=== PATIENT | female | born 1985 | race Two or more races ===

== ENCOUNTER → 2020-08-15 14:38 | Outpatient (BNVA) | payer OTHER, SELFPAY | PROVIDERS: PCP Internal Medicine; Referring Provider Internal Medicine; Visit Provider Internal Medicine | DX: I95.1 Orthostatic hypotension (principal); Z79.899 Other long term (current) drug therapy | CPT/HCPCS: 99214 ==

== ENCOUNTER 2020-08-16 12:25 | Outpatient (REF) | payer OTHER, SELFPAY ==
[2020-08-16 14:03] LABS: Anion Gap 10 (12-20); Blood Urea Nitrogen 13 mg/dL (9-16); Calcium 8.8 mg/dL (8.4-10.2); Carbon Dioxide 28 mmol/L (22-29); Chloride 103 mmol/L (96-108); Estimated Glomerular Filt Rate > 60; Glucose Random 84 mg/dL (60-115); Potassium 3.8 mmol/l (3.3-5.1); Sodium 137 mmol/L (135-145)
== END 2020-08-16 12:26 | disposition home or self-care (01) ==
LOC: HO.LAB 12:25
PROVIDERS: PCP Internal Medicine; Visit Provider Internal Medicine
DX: I95.1 Orthostatic hypotension (principal)
CPT/HCPCS: 80048

== ENCOUNTER → 2020-08-21 08:22 | Outpatient (BNVA) | payer OTHER, SELFPAY | PROVIDERS: PCP Internal Medicine; Visit Provider Dietitian, Registered | DX: Z76.89 Persons encountering health services in other specified circumstances (principal) ==

== ENCOUNTER 2020-09-25 00:30 | Emergency (ER) | payer OTHER, SELFPAY ==
[2020-09-25 00:34] VITALS: BP 104/68; PULSE 78; RESP 14; TEMP 36.4; O2SAT 99; BMI 28.3
[2020-09-25 00:41] VITALS: BP 104/68; PULSE 78; RESP 14; TEMP 36.4; O2SAT 99
--- NOTE | 2020-09-25 00:55 | XR_ITS ---
EXAMINATION: XR SHOULDER, RIGHT CLINICAL INFORMATION: Pain COMPARISON: None TECHNIQUE: Three views of the right shoulder. FINDINGS: No fracture or dislocation. The right humeral head articulates appropriately with the glenoid. The joint space is maintained. The acromioclavicular joint is intact. The visualized lung is clear. The visualized ribs are intact. XR/XR shoulder RT min 2V IMPRESSION: Normal right shoulder.
--- NOTE | 2020-09-25 01:02 | PC.NURSE ---
pt taken to rad. pt has her right arm in a home made sling. pt states she is unable to move her right arm due to pain that is also in her right side of her neck.
[2020-09-25] MEDS: Ketorolac Tromethamine 60 MG/2 ML VIAL IM (01:09)
[2020-09-25 02:00] VITALS: BP 97/52; PULSE 83; RESP 16; O2SAT 97
--- NOTE | 2020-09-25 02:25 | ED.EXTPRO ---
HPI - Extremity Problem General Chief complaint: Extremity Injury, Upper Stated complaint: Shoulder pain Time Seen by Provider: 09/25/20 00:55 Source: patient Mode of arrival: ambulatory History of Present Illness HPI Narrative: 35-year-old female with right shoulder pain x1 day. Patient denies falls or heavy lifting. Patient states several weeks ago her left hand started having pain was prescribed steroids and eventually got better. Patient states right shoulder limited movement secondary to pain. Does not have any numbness or tingling to the right arm. Denies neck pain MD Complaint: extremity pain Onset (ago): day(s) Pain Consistency: constant Severity scale (1-10): 5 Related Data Home Medications Medication Instructions Recorded Confirmed midodrine 10 mg tablet 10 mg PO TID 08/15/20 08/15/20 sodium chloride 1 gram tablet 1,000 mg PO DAILY 08/15/20 08/15/20 baclofen 10 mg tablet 10 mg PO BID PRN 09/13/20 benzonatate 100 mg capsule 100 mg PO TID 09/13/20 fludrocortisone 0.1 mg tablet 0.05 mg PO DAILY 09/13/20 Previous Rx's Medication Instructions Recorded fludrocortisone 0.1 mg tablet 0.2 mg PO DAILY #180 tab 08/15/20 docusate sodium 100 mg capsule 100 mg PO DAILY PRN 20 Days #20 cap 09/13/20 witch deven 50 % topical pads 1 pad TOPICAL BID 5 Days #10 ea 09/13/20 cyclobenzaprine 10 mg PO BEDTIME PRN #20 tab 09/25/20 naproxen [EC-Naproxen] 500 mg PO BID PRN #30 tab 09/25/20 tramadol 50 mg PO BID PRN #14 tab 09/25/20 Allergies Allergy/AdvReac Type Severity Reaction Status Date / Time Iodinated Contrast Media Allergy Unknown DIFFICULTY Verified 09/25/20 00:34 [IV CONTRAST] BREATHING Review of Systems Review of Systems: Constitutional : No Weight loss, No Fever, No Chills, No Night Sweats, No Fatigue, No Malaise ENT/Mouth : No Hearing loss, No Ear Pain, No Nasal Congestion, No Sinus Pain, No Hoarseness, No sore throat, No Rhinorrhea, No Swallowing Difficulty Eyes: No Eye Pain, No Swelling, No Redness, No Foreign Body, No Discharge, No Vision Changes Cardiovascular : No Chest Pain, No SOB, No Dyspnea on Exertion, No Orthopnea, No Edema, No Palpitations Respiratory : No Cough, No Sputum, No Wheezing, No Smoke Exposure, No Dyspnea Gastrointestinal : No Nausea, No Vomiting, No Diarrhea, No Constipation, No abdominal Pain, No Hematochezia, No Melena Genitourinary : no irregular bleeding, No Dysuria, No Urinary Frequency, No Hematuria, No Urinary Incontinence, No Urgency, No Flank Pain, No Urinary Flow Changes, No Hesitancy Musculoskeletal : Right shoulder pain No Myalgias, No Joint Swelling Skin : No Skin Lesions, No rash Neuro : No Weakness, No Numbness, No Paresthesias, No Loss of Consciousness, No Dizziness, No Headache Psych : No Anxiety/Panic, No Depression, No SI/HI/AH/VH, No Social Issues, Heme/Lymph: No Bruising, No Bleeding,No Lymphadenopathy Endocrine : No Polyuria, No Polydipsia, No Temperature Intolerance PMFSH Past Medical History Medical History Acute hemorrhoid Dizziness Orthostatic hypotension Pre-syncope Surgical History History of section Family History Family History Mother Hypertension Diabetes Father No problems noted. Social History Social History Alcohol intake: never Smoking Status: Former smoker Use of substances other than those prescribed or required for medical reasons: No Advance Directives: No Physical Exam Vital Signs: Vital Signs: Last Vital Signs Temp 97.6 F 09/25/20 00:41 Pulse 83 09/25/20 02:00 Resp 16 09/25/20 02:00 BP 97/52 L 09/25/20 02:00 Pulse Ox 97 09/25/20 02:00 Body Mass Index 28.3 Vital signs reviewed Appearance: Alert. Oriented X3. No acute distress. Eyes: Pupils equal, round and reactive to light. ENT: Pharynx normal. Neck: Normal inspection. Neck supple. No lymph nodes noted. No crepitus CVS: Normal heart rate and rhythm. Pulses normal. Normal S1 and S2 Respiratory: No respiratory distress. Breath sounds normal. No Wheezing. No rales Abdomen: Soft and nontender. No rigidity. No distention. good BS x4 Skin: Skin warm and dry. Normal skin color. Normal skin turgor. Extremities: No lower extremity edema. Neurovascular intact to all extremities. No Lacerations. No Rash. Right shoulder tenderness to palpation. Limited range of motion secondary to pain. Increased tonicity to right trapezius Neuro: Oriented X 3. No motor deficit. No sensory deficit. Moving all extermities. No slurred speech. MDM - Extremity (Nontraumatic) MDM Narrative Medical decision making narrative: 35-year-old female with right shoulder pain. Negative x-ray. Increased tonicity will prescribe and tight inflammatories and muscle relaxant medications. I doubt this patient has acute coronary syndrome or cervical neck fracture. Radiology results reviewed by me Discharge Plan Discharge Clinical Impression: Acute shoulder pain Qualifiers: Laterality: right Qualified Code(s): M25.511 - Pain in right shoulder Patient Disposition: Home, Self-Care Instructions: Shoulder Pain (ED) Additional Instructions: Thank you for visiting the emergency department today. If your symptoms worsen or do not resolve completely please return to the emergency department immediately or call 911. if he have any questions please call your primary care physician Prescriptions: New naproxen [EC-Naproxen] 500 mg tablet,delayed release (DR/EC) 500 mg PO BID PRN (Reason: pain) Qty: 30 RF: 0 cyclobenzaprine 10 mg tablet 10 mg PO BEDTIME PRN (Reason: pain) Qty: 20 RF: 0 tramadol 50 mg tablet 50 mg PO BID PRN (Reason: pain) Qty: 14 RF: 0 No Action Preparation H (Lucie Camargo) 50 % pads, medicated 1 pad topical BID 5 Days Qty: 10 RF: 1 docusate sodium [Colace] 100 mg capsule 100 mg PO DAILY PRN (Reason: constipation) 20 Days Qty: 20 RF: 0 sodium chloride 1 gram tablet 1,000 mg PO DAILY RF: 0 midodrine 10 mg tablet 10 mg PO TID RF: 0 fludrocortisone 0.1 mg tablet 0.2 mg PO DAILY Qty: 180 RF: 1 Referrals: Lucia Quintanilla MD [Primary Care Provider] - 2 days
[2020-09-25] MEDS: Cyclobenzaprine HCl 10 MG TABLET PO (02:30)
== END 2020-09-25 02:57 | disposition home or self-care (01) ==
PROVIDERS: Emergency Provider Emergency Medicine; PCP Internal Medicine
DX: M25.511 Pain in right shoulder (principal); I10 Essential (primary) hypertension; Z87.891 Personal history of nicotine dependence; Z79.899 Other long term (current) drug therapy
CPT/HCPCS: 73030; 96372; 99284; J1885

== ENCOUNTER → 2020-10-17 08:20 | Outpatient (BNVA) | payer OTHER, SELFPAY | PROVIDERS: PCP Internal Medicine; Referring Provider Internal Medicine; Visit Provider Dietitian, Registered | DX: Z76.89 Persons encountering health services in other specified circumstances (principal) ==

== ENCOUNTER → 2021-01-02 09:59 | Outpatient (BNVA) | payer SELFPAY | PROVIDERS: PCP Internal Medicine; Visit Provider Nurse Practitioner Family ==

== ENCOUNTER 2021-01-25 09:53 | Outpatient (REF) | payer OTHER, SELFPAY ==
[2021-01-25 10:54] LABS: MANUAL DIFF FLAG NO
[2021-01-25 10:59] LABS: Basophils Percent Auto 0.7 % (0-2); Eosinophils Absolute Auto 0.1 X10*3/uL (0.0-0.4); Eosinophils Percent Auto 3.2 % (0-4); Hematocrit 28.4 % (37-47); Hemoglobin 8.3 g/dl (12.0-16.0); Imm Gran Abs Auto 0.02 X10*3/uL (0.00-0.03); Imm Gran Pct Auto 0.5 % (0.0-0.4); Lymphocytes Absolute Auto 1.3 X10*3/uL (1.2-4.9); Lymphocytes Percent Auto 32.4 % (20-40); Mean Corpuscular HGB Conc 29.2 g/dl (31.0-35.0); Mean Corpuscular Hemoglobin 21.1 pg (27.0-33.0); Mean Corpuscular Volume 72.1 fL (80-98); Mean Platelet Volume 9.8 fL (9.4-12.3); Monocytes Absolute Auto 0.4 X10*3/uL (0.1-1.2); Monocytes Percent Auto 8.5 % (2-11); Neutrophils Absolute Auto 2.3 X10*3/uL (2.0-8.3); Neutrophils Percent Auto 54.7 % (45-73); Platelet Count 285 X10*3/uL (160-400); Red Blood Count 3.94 X10*6/uL (4.20-5.50); Red Cell Distribution Width 15.2 % (11.0-16.0); White Blood Count 4.1 X10*3/uL (4.8-10.8)
[2021-01-25 11:22] LABS: Alanine Aminotransferase 11 U/L (0-31); Albumin Level 3.9 g/dL (3.5-5.0); Alkaline Phosphatase 74 U/L (39-117); Anion Gap 11 (12-20); Aspartate Amino Transferase 13 U/L (5-31); Bilirubin Total 0.6 mg/dL (0.0-1.0); Blood Urea Nitrogen 10 mg/dL (9-16); Calcium 8.3 mg/dL (8.4-10.2); Carbon Dioxide 25 mmol/L (22-29); Chloride 109 mmol/L (96-108); Estimated Glomerular Filt Rate > 60; Glucose Fasting 85 mg/dL (60-99); Iron 24 mcg/dL (30-160); Percent Iron Saturation 6 % (15-50); Potassium 3.9 mmol/L (3.3-5.1); Sodium 141 mmol/L (135-145); Total Iron Binding Capacity 420 mcg/dL (228-428); Total Protein 6.6 g/dL (6.5-8.0); Unsaturated Iron Binding 396 ug/dL
[2021-01-25 12:01] LABS: Folate > 20.0 ng/mL (> or = 4.0); Vitamin B12 251 pg/mL (200-900)
[2021-01-29 14:01] LABS: Vitamin D 25-OH, D2 8 ng/mL; Vitamin D 25-OH, D3 11 ng/mL; Vitamin D 25-OH, Total 19 ng/mL (30-100)
== END 2021-01-25 09:54 | disposition home or self-care (01) ==
LOC: HO.LAB 09:53
PROVIDERS: PCP Internal Medicine; Visit Provider Internal Medicine
DX: D50.9 Iron deficiency anemia, unspecified (principal); D64.9 Anemia, unspecified; R42 Dizziness and giddiness; E55.9 Vitamin D deficiency, unspecified
CPT/HCPCS: 36415; 80053; 82306; 82607; 82746; 83540; 85025

== ENCOUNTER 2021-02-25 10:39 | Outpatient (RCR) | payer OTHER, SELFPAY ==
--- NOTE | 2021-03-29 10:36 | MHC.PT.DC ---
[facility] [place] Office [place] Office [place] Office [address] Gregory Son [address] [phone] F: [phone] F: [phone] F: [phone] F: [phone] Physical Therapy Discharge Report Diagnosis: dizziness and giddiness and neck pain Date of Surgery: Date of Evaluation: 02/25/21 Date of Discharge: 03/29/21 Treatments to Date: 1 Cancellations to Date: 0 No Shows to Date: 0 Discharge Status: Recommend MD Follow-up Visit Non-compliance Discharge Summary: Pt did not f/u with further visits and she was to f/u with PCP. D/c at this time. Electronically signed by: Aylin Saucedo PT Please sign and return to therapist. Thank you for your referral.
--- NOTE | 2021-03-29 10:36 | MHC.PT.EP ---
[facility] [place] Office [place] Office [place] Office [address] Gregory Son [address] [phone] F: [phone] F: [phone] F: [phone] F: [phone] Physical Therapy Plan of Care Date of Evaluation: Date of Surgery: Diagnosis: dizziness and giddiness and neck pain Assessment: 36 y/o RHD referred to PT wtih dizziness and giddiness and neck pain. Of note, pt with PMH significinat for myasthenia gravis and often has double vision due to this dx. She has had neck pain for 3 years and dizziness on/off for one year that is worse with positional changes, describes as spinning and offbalance that lasts for a few minutes. Reports B neck pain for 3 years of insidious onset. Reports neck pain located entire posterior cervical region and radiates into B UT. Examination shows decreased cervical and shoulder AROM, decreased UE strength (more significant strength deficit on R), DGI with impairments noted with use of hand on rail with stairs, turn and stop and decreased omar with vertical head turns and BPPV not assessed due to seated VBI test on Right resulting in diplopia and nausea. PT held at this time with pt to f/u with Dr. Odell Rico regarding VBI sx. Once cleared, she would benefit from PT for cervical pain/balance training/ and assessment of BPPV 2x/week for 5 weeks to optimize functional mobiltiy. Frequency and Duration: The patient will be seen 2x/week for 5 weeks Short Term Goals: 3 weeks 1. I with HEP 2. Improve cervical AROM by 10 degrees Mcc Goals: 5 weeks 1. DGI 2. I witih HEP and self management of sx 3. Pt will be able to perform grooming I with pain < 3/10 Treatment Plan: Modalities to reduce pain, spasms and effusion. Manual therapy to restore motion and function. Therapeutic exercise to improve strength and flexibility. Neuromuscular re-education for posture and balance. Therapeutic activities to return to functional activities of daily living. Electronically signed by: Aylin Saucedo PT Please sign and return to therapist. Thank you for your referral.
== END 2021-03-29 10:39 | disposition home or self-care (01) ==
LOC: HO.PTCHIC 10:39
PROVIDERS: PCP Internal Medicine; Visit Provider Internal Medicine
DX: R42 Dizziness and giddiness (principal)
CPT/HCPCS: 97162

== ENCOUNTER 2021-04-22 10:28 | Emergency (ER) | payer OTHER, SELFPAY ==
--- NOTE | ~2021-04-22 | CT_ITS ---
EXAMINATION: CT ABDOMEN AND PELVIS WITHOUT CONTRAST CLINICAL INFORMATION: Left lower quadrant pain COMPARISON: None TECHNIQUE: Multidetector volumetric imaging was performed from the superior aspect of the liver through the pubic symphysis. Sagittal and coronal reformatted images were obtained on the technologist's workstation. This CT examination was performed using dose optimization techniques as appropriate, variously including the following: *Automated exposure control *Adjustment of mA and/or kV according to patient size (this includes techniques or standardized protocols for targeted exams where dose is matched to indication/reason for exam; i.e. extremities or head) *Use of iterative reconstruction technique DLP: 638 mGy-cm FINDINGS: LUNG BASES: The visualized lung bases are unremarkable. LIVER, GALLBLADDER, AND BILIARY TREE: The liver is normal in size, shape, and attenuation. No focal hepatic lesion or biliary ductal dilatation is present. There are small gallstones in the gallbladder. Gallbladder is otherwise unremarkable. PANCREAS: Unremarkable. SPLEEN: Unremarkable. ADRENAL GLANDS: Unremarkable. KIDNEYS AND URETERS: The kidneys are normal in size, shape, and attenuation. No hydronephrosis, hydroureter, or calculi seen. No perinephric stranding. BLADDER: Unremarkable. GASTROINTESTINAL TRACT: The small and large bowel are unremarkable. The appendix is unremarkable. There are postoperative changes from gastric sleeve procedure. ABDOMINAL WALL: There is a small umbilical hernia containing fat. LYMPH NODES: Normal. VASCULAR: Unremarkable. PELVIC VISCERA: Unremarkable. OSSEOUS STRUCTURES: Unremarkable. CT/CT abdomen pelvis wo con IMPRESSION: Gallstones. Postsurgical change from gastric sleeve procedure. No evidence of diverticulosis or diverticulitis.
[2021-04-22 11:08] VITALS: BP 96/70; PULSE 73; RESP 16; TEMP 36.7; O2SAT 98; BMI 27.1
[2021-04-22 11:46] VITALS: BP 97/53; PULSE 63; RESP 16; TEMP 36.8; O2SAT 98
--- NOTE | 2021-04-22 11:56 | ED_ITS ---
HPI - Abdominal Pain General Chief Complaint: Abdominal Pain Stated Complaint: abd pain Time Seen by Provider: 04/22/21 11:38 Source: patient and family Mode of arrival: ambulatory Limitations: no limitations History of Present Illness MD elicited complaint: abdominal pain Onset (ago): day(s) (3) Pain Consistency: constant Location: LLQ and L flank Severity: moderate Quality: cramping and stabbing Radiation: none Migration to: no migration Exacerbating factors: vomiting and movement Relieving factors: nothing Associated symptoms: nausea and vomiting Related Data Home Medications Medication Instructions Recorded Confirmed sodium chloride 1 gram tablet 1,000 mg PO DAILY 08/15/20 02/19/21 baclofen 10 mg tablet 10 mg PO BID PRN 09/13/20 02/19/21 cetirizine 10 mg tablet 10 mg PO DAILY 10/24/20 02/19/21 diclofenac sodium 1 % topical gel 2 g TOPICAL BID-TID 10/24/20 02/19/21 fluticasone 113 mcg-salmeterol 14 1 inh INHALATION BID 10/24/20 02/19/21 mcg/actuation breath activated powdr hydroxyzine HCl 25 mg tablet 25 mg PO BID PRN 10/24/20 02/19/21 ketotifen fumarate 0.025 % (0.035 1 drp OPHTHALMIC (EYE) Q8H ml 10/24/20 02/19/21 %) eye drops lidocaine 5 % topical patch 1 patch TOPICAL DAILY 10/24/20 02/19/21 polyethylene glycol 3350 17 g PO 10/24/20 02/19/21 gram/dose oral powder pyridostigmine bromide 60 mg tablet 120 mg PO QID 10/24/20 02/19/21 sertraline 100 mg tablet 100 mg PO DAILY 10/24/20 02/19/21 zolpidem 5 mg tablet 5 mg PO BEDTIME PRN 10/24/20 02/19/21 Previous Rx's Medication Instructions Recorded docusate sodium 100 mg capsule 100 mg PO DAILY PRN 20 Days #20 cap 09/13/20 witch deven 50 % topical pads 1 pad TOPICAL BID 5 Days #10 ea 10/24/20 cholecalciferol (vitamin D3) 50 50 mcg PO DAILY #30 cap 12/31/20 mcg (2,000 unit) capsule fludrocortisone 0.1 mg tablet 0.2 mg PO DAILY #180 tab 01/02/21 midodrine 10 mg tablet 10 mg PO TID #90 tab 01/02/21 meclizine 25 mg tablet 25 mg PO TID PRN 30 Days #90 tab 01/08/21 ergocalciferol (vitamin D2) 1,250 1,250 mcg PO QWEEK 30 Days #5 cap 02/19/21 mcg (50,000 unit) capsule ferrous sulfate 325 mg (65 mg 325 mg PO BID 30 Days #60 tab 02/19/21 iron) tablet tramadol 50 mg tablet 50 mg PO BID PRN 30 Days #60 tab 02/19/21 cefuroxime axetil 500 mg PO BID 7 Days #14 tab 04/22/21 ondansetron 4 mg PO Q8H PRN #20 tab 04/22/21 Allergies Allergy/AdvReac Type Severity Reaction Status Date / Time Iodinated Contrast Media Allergy Unknown DIFFICULTY Verified 02/19/21 09:12 [IV CONTRAST] BREATHING Review of Systems Review of Systems Constitutional : No Weight loss, No Fever, No Chills ENT/Mouth : No sore throat, No Rhinorrhea Eyes: No Swelling, No Redness Cardiovascular : No Chest Pain, No SOB, NoEdema Respiratory : No Cough, No Sputum, No Wheezing Gastrointestinal : Positive Nausea, Positive Vomiting, no Diarrhea, positive abdominal Pain, No Hematochezia, No Melena Genitourinary : No Dysuria, No Urinary Frequency, No Hematuria, No Urgency Musculoskeletal : No joint pain, No Myalgias, No Joint Swelling Skin : No Skin Lesions, No rash Neuro : No Weakness, No Numbness, No Dizziness, No Headache Psych : No Anxiety/Panic, No Depression Heme/Lymph: No Bruising, No Lymphadenopathy Endocrine : No Polyuria, No Polydipsia All other systems reviewed and are negative. Physical Exam Vital Signs: Vital Signs: Last Vital Signs Temp 98.3 F 04/22/21 11:46 Pulse 63 04/22/21 11:46 Resp 16 04/22/21 11:46 BP 97/53 L 04/22/21 11:46 Pulse Ox 98 04/22/21 11:46 Body Mass Index 27.1 Appearance: Alert. Oriented X3. No acute distress. Eyes: Pupils equal, round and reactive to light. ENT: Pharynx normal. Neck: Normal inspection. Neck supple. CVS: Normal heart rate and rhythm. Pulses normal. Respiratory: No respiratory distress. Breath sounds normal. Abdomen: Soft and moderate LLQ pain no rebound or guarding Skin: Skin warm and dry. Normal skin color. Normal skin turgor. Extremities: No lower extremity edema. No calf ttp Neuro: Oriented X 3. No motor deficit. No sensory deficit. Course Course Course Narrative: baseline fluctuations in H/H not far from baseline, doubt GIB, patient feels better, UA has some WBCs and her pain is over suprapubic area c ould be cystitis, will start on ceftin, overall not toxic, stable for DC at this time MDM - Abdominal Pain MDM Narrative Medical decision making narrative: 36 yo female with hx of MG on pyridostigmine comes in with 3 days of LLQ and L flank pain with n/v no prior bouts of diverticulitis no prior stones, at this time will need labs, IVF, IV medications - reviewed list no issue with MG should occur, CT scan of bowel/kidneys dispo per results and findings. Differential Diagnosis Differential diagnosis: Likely abdominal pain, calculus of kidney, constipation, diverticulitis and ovarian cyst; Unlikely acute appendicitis Lab Data Result diagrams: 04/22/21 11:55 04/22/21 11:55 Labs: Lab Results 04/22/21 04/22/21 04/22/21 Range/Units 11:55 11:55 11:55 WBC 5.3 (4.8-10.8) X10*3/uL RBC 4.49 (4.20-5.50) X10*6/uL Hgb 8.9 L (12.0-16.0) g/dl Hct 29.6 L (37-47) % MCV 65.9 L (80-98) fL MCH 19.8 L (27.0-33.0) pg MCHC 30.1 L (31.0-35.0) g/dl RDW 20.6 H (11.0-16.0) % Plt Count 205 D (160-400) X10*3/uL MPV 8.5 L (9.4-12.3) fL Immature Gran % (Auto) 0.2 (0.0-0.4) % Neut % (Auto) 54.0 (45-73) % Lymph % (Auto) 32.1 (20-40) % Bartholomew % (Auto) 10.6 (2-11) % Eos % (Auto) 2.5 (0-4) % Baso % (Auto) 0.6 (0-2) % Lymph # (Auto) 1.7 (1.2-4.9) X10*3/uL Bartholomew # (Auto) 0.6 (0.1-1.2) X10*3/uL Eos # (Auto) 0.1 (0.0-0.4) X10*3/uL Baso # (Auto) 0.0 (0.0-0.2) X10*3/uL Abs Immat Gran (auto) 0.01 (0.00-0.03) X10*3/uL Absolute Neuts (auto) 2.9 (2.0-8.3) X10*3/uL Absolute Nucleated RBC 0.000 (0.0-0.012) X10*3/uL Nucleated RBC % (auto) 0.0 (0.0-0.2) /100WBC Sodium 138 (135-145) mmol/L Potassium 4.3 (3.3-5.1) mmol/L Chloride 108 (96-108) mmol/L Carbon Dioxide 24 (22-29) mmol/L Anion Gap 10 L (12-20) BUN 13 (9-16) mg/dL Creatinine 0.66 (0.5-1.4) mg/dL Estim Creat Clear Calc 109.1 Estimated GFR > 60 Random Glucose 83 (60-115) mg/dL Calcium 9.1 D (8.4-10.2) mg/dL Magnesium 1.8 (1.6-2.6) mg/dL Total Bilirubin 0.6 (0.0-1.0) mg/dL Direct Bilirubin 0.2 (0.0-0.5) mg/dL AST 13 (5-31) U/L ALT 8 (0-31) U/L Alkaline Phosphatase 69 (39-117) U/L Total Protein 6.6 (6.5-8.0) g/dL Albumin 3.9 (3.5-5.0) g/dL Lipase 41 (8-78) U/L Urine Color Urine Appearance Urine pH (5.0-8.0) Ur Specific Huntington (1.005-1.025) Urine Protein (NEG-TRACE) MG/DL Urine Glucose (UA) (NEG) MG/DL Urine Ketones (NEG) MG/DL Urine Blood (NEG) Urine Nitrite (NEG) Ur Leukocyte Esterase (NEG) Urine RBC (0) /HPF Urine WBC (0-4) /HPF Ur Squamous Epith Cells /LPF Urine Bacteria /LPF Urine Test (NEGATIVE) 04/22/21 04/22/21 Range/Units 11:58 11:58 WBC (4.8-10.8) X10*3/uL RBC (4.20-5.50) X10*6/uL Hgb (12.0-16.0) g/dl Hct (37-47) % MCV (80-98) fL MCH (27.0-33.0) pg MCHC (31.0-35.0) g/dl RDW (11.0-16.0) % Plt Count (160-400) X10*3/uL MPV (9.4-12.3) fL Immature Gran % (Auto) (0.0-0.4) % Neut % (Auto) (45-73) % Lymph % (Auto) (20-40) % Bartholomew % (Auto) (2-11) % Eos % (Auto) (0-4) % Baso % (Auto) (0-2) % Lymph # (Auto) (1.2-4.9) X10*3/uL Bartholomew # (Auto) (0.1-1.2) X10*3/uL Eos # (Auto) (0.0-0.4) X10*3/uL Baso # (Auto) (0.0-0.2) X10*3/uL Abs Immat Gran (auto) (0.00-0.03) X10*3/uL Absolute Neuts (auto) (2.0-8.3) X10*3/uL Absolute Nucleated RBC (0.0-0.012) X10*3/uL Nucleated RBC % (auto) (0.0-0.2) /100WBC Sodium (135-145) mmol/L Potassium (3.3-5.1) mmol/L Chloride (96-108) mmol/L Carbon Dioxide (22-29) mmol/L Anion Gap (12-20) BUN (9-16) mg/dL Creatinine (0.5-1.4) mg/dL Estim Creat Clear Calc Estimated GFR Random Glucose (60-115) mg/dL Calcium (8.4-10.2) mg/dL Magnesium (1.6-2.6) mg/dL Total Bilirubin (0.0-1.0) mg/dL Direct Bilirubin (0.0-0.5) mg/dL AST (5-31) U/L ALT (0-31) U/L Alkaline Phosphatase (39-117) U/L Total Protein (6.5-8.0) g/dL Albumin (3.5-5.0) g/dL Lipase (8-78) U/L Urine Color STRAW Urine Appearance HAZY Urine pH 6.5 (5.0-8.0) Ur Specific Huntington 1.015 (1.005-1.025) Urine Protein NEG (NEG-TRACE) MG/DL Urine Glucose (UA) NEG (NEG) MG/DL Urine Ketones NEG (NEG) MG/DL Urine Blood NEG (NEG) Urine Nitrite NEG (NEG) Ur Leukocyte Esterase 1+ H (NEG) Urine RBC 0 (0) /HPF Urine WBC 1-4 (0-4) /HPF Ur Squamous Epith Cells 2+ /LPF Urine Bacteria TRACE /LPF Urine Test NEGATIVE (NEGATIVE) Discharge Plan Discharge Clinical Impression: Anemia, chronic disease, Cystitis Abdominal pain Qualifiers: Abdominal location: left lower quadrant Qualified Code(s): R10.32 - Left lower quadrant pain Patient Disposition: Home, Self-Care Instructions: Urinary Tract Infection in Women (ED), Abdominal Pain (ED), Anemia (ED) Additional Instructions: return to ED for any worsening symptoms or concerns Prescriptions: New cefuroxime axetil 500 mg tablet 500 mg PO BID 7 Days Qty: 14 RF: 0 ondansetron 4 mg tablet,disintegrating 4 mg PO Q8H PRN (Reason: nausea and vomiting) Qty: 20 RF: 0 No Action cholecalciferol (vitamin D3) 50 mcg (2,000 unit) capsule 50 mcg PO DAILY Qty: 30 RF: 11 zolpidem 5 mg tablet 5 mg PO BEDTIME PRNRF: 0 sertraline 100 mg tablet 100 mg PO DAILY RF: 0 ketotifen fumarate 0.025 % (0.035 %) drops 1 drp ophthalmic (eye) Q8H RF: 0 cetirizine 10 mg tablet 10 mg PO DAILY RF: 0 polyethylene glycol 3350 17 gram/dose powder PO RF: 0 diclofenac sodium 1 % gel 2 g topical BID-TID RF: 0 lidocaine 5 % adhesive patch,medicated 1 patch topical DAILY RF: 0 fluticasone propion-salmeterol 113-14 mcg/actuation aerosol powdr breath activated 1 inh inhalation BID RF: 0 hydroxyzine HCl 25 mg tablet 25 mg PO BID PRN (Reason: anxiety) RF: 0 pyridostigmine bromide 60 mg tablet 120 mg PO QID RF: 0 Preparation H (Witch Deven) 50 % pads, medicated 1 pad topical BID 5 Days Qty: 10 RF: 1 tramadol 50 mg tablet 50 mg PO BID PRN (Reason: pain) 30 Days Qty: 60 RF: 0 ferrous sulfate 325 mg (65 mg iron) tablet 325 mg PO BID 30 Days Qty: 60 RF: 3 ergocalciferol (vitamin D2) 1,250 mcg (50,000 unit) capsule 1,250 mcg PO QWEEK 30 Days Qty: 5 RF: 3 baclofen 10 mg tablet 10 mg PO BID PRNRF: 0 docusate sodium [Colace] 100 mg capsule 100 mg PO DAILY PRN (Reason: constipation) 20 Days Qty: 20 RF: 0 meclizine 25 mg tablet 25 mg PO TID PRN (Reason: dizziness) 30 Days Qty: 90 RF: 2 sodium chloride 1 gram tablet 1,000 mg PO DAILY RF: 0 fludrocortisone 0.1 mg tablet 0.2 mg PO DAILY Qty: 180 RF: 1 midodrine 10 mg tablet 10 mg PO TID Qty: 90 RF: 1 Referrals: Lucia Quintanilla MD [Primary Care Provider] - 2 days (if not better) [facility] Past Medical History Attestation statement: The following information was validated with the patient. Medical History Acute hemorrhoid Asthma Dizziness Iron deficiency anemia Orthostatic hypotension Polyarthralgia Pre-syncope Surgical History History of section History of gastric surgery History of thyroidectomy Family History Family History Mother Hypertension Diabetes Father No problems noted. Paternal Uncle Breast cancer Social History Social History (Updated 04/22/21 @ 11:58 by Luz Maria Burton DO) Alcohol intake: never Patient Tobacco Use Status: Never used Tobacco Use of substances other than those prescribed or required for medical reasons: No Advance Directives: No Advance Directives Information Provided: No Patient : No
[2021-04-22 12:03] LABS: MANUAL DIFF FLAG NO
[2021-04-22 12:05] LABS: Basophils Percent Auto 0.6 % (0-2); Eosinophils Absolute Auto 0.1 X10*3/uL (0.0-0.4); Eosinophils Percent Auto 2.5 % (0-4); Hematocrit 29.6 % (37-47); Hemoglobin 8.9 g/dl (12.0-16.0); Imm Gran Abs Auto 0.01 X10*3/uL (0.00-0.03); Imm Gran Pct Auto 0.2 % (0.0-0.4); Lymphocytes Absolute Auto 1.7 X10*3/uL (1.2-4.9); Lymphocytes Percent Auto 32.1 % (20-40); Mean Corpuscular HGB Conc 30.1 g/dl (31.0-35.0); Mean Corpuscular Hemoglobin 19.8 pg (27.0-33.0); Mean Corpuscular Volume 65.9 fL (80-98); Mean Platelet Volume 8.5 fL (9.4-12.3); Monocytes Absolute Auto 0.6 X10*3/uL (0.1-1.2); Monocytes Percent Auto 10.6 % (2-11); Neutrophils Absolute Auto 2.9 X10*3/uL (2.0-8.3); Platelet Count 205 X10*3/uL (160-400); Red Blood Count 4.49 X10*6/uL (4.20-5.50); Red Cell Distribution Width 20.6 % (11.0-16.0); White Blood Count 5.3 X10*3/uL (4.8-10.8)
[2021-04-22 12:09] LABS: Glucose Urine UA NEG (NEG); Leukocyte Esterase Urine 1+ (NEG); Nitrite Urine NEG (NEG); PH 6.5 (5.0-8.0); Specific Gravity - Urine 1.015 (1.005-1.025); UACC Culture Trigger YES; Urine Blood NEG (NEG); Urine Ketones NEG (NEG); Urine Protein NEG (NEG-TRACE)
[2021-04-22 12:12] LABS: Appearance Urine HAZY; Color Urine STRAW
[2021-04-22 12:13] LABS: UPreg QC Valid YES; Urine Pregnancy NEGATIVE (NEGATIVE)
[2021-04-22] MEDS: 0.9 % Sodium Chloride 1,000 ML 999 ML IVCONT (12:16)
[2021-04-22] MEDS: Ketorolac Tromethamine 30 MG/ML VIAL IVPUSH (12:16)
[2021-04-22] MEDS: ondansetron HCL 4 MG/2 ML VIAL IVPUSH (12:16)
[2021-04-22 12:19] LABS: Bacteria Urine TRACE /LPF; RBC Urine 0 /HPF (0); Squamous Epithelial Cell Urine 2+ /LPF
[2021-04-22 12:33] LABS: Anion Gap 10 (12-20); Blood Urea Nitrogen 13 mg/dL (9-16); Calcium 9.1 mg/dL (8.4-10.2); Carbon Dioxide 24 mmol/L (22-29); Chloride 108 mmol/L (96-108); Creatinine Clr Calc Pharmacy 109.1; Estimated Glomerular Filt Rate > 60; Glucose Random 83 mg/dL (60-115); Potassium 4.3 mmol/L (3.3-5.1); Sodium 138 mmol/L (135-145)
[2021-04-22 12:34] LABS: Alanine Aminotransferase 8 U/L (0-31); Albumin Level 3.9 g/dL (3.5-5.0); Alkaline Phosphatase 69 U/L (39-117); Aspartate Amino Transferase 13 U/L (5-31); Bilirubin Direct 0.2 mg/dL (0.0-0.5); Bilirubin Total 0.6 mg/dL (0.0-1.0); Lipase 41 U/L (8-78); Magnesium 1.8 mg/dL (1.6-2.6); Total Protein 6.6 g/dL (6.5-8.0)
== END 2021-04-22 14:06 | disposition home or self-care (01) ==
PROVIDERS: Emergency Provider Emergency Medicine; PCP Internal Medicine
DX: N30.90 Cystitis, unspecified without hematuria (principal); D64.9 Anemia, unspecified
CPT/HCPCS: 36415; 74176; 80048; 80076; 81001; 81003; 81025; 83690; 83735; 85025; 87086; 96361; 96374; 96375; 99284; 99285; J1885; J2405

== ENCOUNTER → 2021-05-15 11:08 | Outpatient (BNVA) | payer OTHER, SELFPAY | PROVIDERS: Visit Provider Internal Medicine ==

== ENCOUNTER → 2021-05-17 10:25 | Outpatient (BNV) | payer OTHER, SELFPAY | PROVIDERS: PCP Internal Medicine; Visit Provider Internal Medicine | DX: D50.9 Iron deficiency anemia, unspecified (principal); Z90.3 Acquired absence of stomach [part of]; Z98.84 Bariatric surgery status | CPT/HCPCS: 99212; 99213; 99214 ==

== ENCOUNTER 2021-05-22 09:07 | Outpatient (REF) | payer OTHER, SELFPAY ==
[2021-05-22 10:40] LABS: MANUAL DIFF FLAG NO
[2021-05-22 10:53] LABS: Basophils Percent Auto 0.7 % (0-2); Eosinophils Absolute Auto 0.1 X10*3/uL (0.0-0.4); Eosinophils Percent Auto 2.9 % (0-4); Hematocrit 32.2 % (37-47); Hemoglobin 9.4 g/dl (12.0-16.0); Imm Gran Abs Auto 0.01 X10*3/uL (0.00-0.03); Imm Gran Pct Auto 0.2 % (0.0-0.4); Lymphocytes Absolute Auto 1.4 X10*3/uL (1.2-4.9); Lymphocytes Percent Auto 34.3 % (20-40); Mean Corpuscular HGB Conc 29.2 g/dl (31.0-35.0); Mean Corpuscular Hemoglobin 19.7 pg (27.0-33.0); Mean Corpuscular Volume 67.5 fL (80-98); Mean Platelet Volume 9.6 fL (9.4-12.3); Monocytes Absolute Auto 0.4 X10*3/uL (0.1-1.2); Monocytes Percent Auto 8.9 % (2-11); Neutrophils Absolute Auto 2.2 X10*3/uL (2.0-8.3); Platelet Count 253 X10*3/uL (160-400); Red Blood Count 4.77 X10*6/uL (4.20-5.50); Red Cell Distribution Width 20.1 % (11.0-16.0); White Blood Count 4.2 X10*3/uL (4.8-10.8)
[2021-05-22 11:22] LABS: Anion Gap 10 (12-20); Blood Urea Nitrogen 10 mg/dL (9-16); Calcium 8.7 mg/dL (8.4-10.2); Carbon Dioxide 23 mmol/L (22-29); Chloride 110 mmol/L (96-108); Estimated Glomerular Filt Rate > 60; Glucose Random 93 mg/dL (60-115); Iron 31 mcg/dL (30-160); Percent Iron Saturation 7 % (15-50); Potassium 4.2 mmol/L (3.3-5.1); Sodium 139 mmol/L (135-145); Total Iron Binding Capacity 466 mcg/dL (228-428); Unsaturated Iron Binding 435 ug/dL
[2021-05-22 11:36] LABS: Free T4 (Free Thyroxine) 0.98 ng/dL (0.71-1.85)
[2021-05-22 12:15] LABS: Thyroid Stimulating Hormone 0.34 uIU/mL (0.32-4.0); Vitamin D 25-OH Total 15.6 ng/mL (>30)
[2021-05-22 18:02] LABS: Folate 17.7 ng/mL (> or = 4.0); Vitamin B12 231 pg/mL (200-900)
[2021-05-26 13:46] LABS: Vitamin B1 13 nmol/L (8-30)
[2021-05-28 19:26] LABS: Vitamin A 32 mcg/dL (38-98)
== END 2021-05-22 09:08 | disposition home or self-care (01) ==
LOC: HO.LAB 09:07
PROVIDERS: Internal Medicine; PCP Internal Medicine; Referring Provider Internal Medicine; Visit Provider Physician Assistant
DX: E66.3 Overweight (principal); D50.9 Iron deficiency anemia, unspecified; E55.9 Vitamin D deficiency, unspecified; E04.2 Nontoxic multinodular goiter; M25.50 Pain in unspecified joint; Z79.899 Other long term (current) drug therapy; Z68.29 Body mass index [BMI] 29.0-29.9, adult; Z71.3 Dietary counseling and surveillance; Z90.3 Acquired absence of stomach [part of]; Z98.84 Bariatric surgery status
CPT/HCPCS: 36415; 80048; 82306; 82607; 82746; 83540; 84425; 84439; 84443; 84590; 85025; 99212

== ENCOUNTER 2021-05-23 13:00 | Outpatient (REF) | payer OTHER, SELFPAY ==
--- NOTE | ~2021-05-23 | US_ITS ---
EXAMINATION: US THYROID CLINICAL INFORMATION: Nontoxic multinodular goiter. COMPARISON: Ultrasound soft tissue head/neck thyroid dated 09/13/2019 and 04/14/2019. TECHNIQUE: Linear transducer grayscale and color Doppler examination with attention to the region of the thyroid. FINDINGS: SIZE: Measurements of the thyroid lobes and nodules are given in sagittal, anteroposterior and transverse dimensions respectively. Right Thyroid Lobe: 5.6 x 1.8 x 1.9 cm, volume 10.0 mL. Previously 5.6 x 1.6 x 1.8 cm, volume 8.5 mL. Parenchyma: The gland echotexture is homogeneous. Thyroid vascularity is normal. Left Thyroid Lobe: 5.7 x 2.0 x 2.0 cm, volume 11.9 mL. Previously 5.6 x 1.5 x 1.7 cm, volume 7.7 mL. Parenchyma: The gland echotexture is homogeneous. Thyroid vascularity is normal. Isthmus: 0.4 cm in maximum AP dimension. Previously 0.4 cm. The previously present and previously biopsied (11/22/2019) nodule in the isthmus has been removed. Estimated total number of nodules greater than or equal to 1 cm: 0. Resource Recovery Specialist nodules are described as follows: 1. Location: Left mid. Size: 0.64 x 0.37 x 0.50 cm, volume 0.06 mL. Previously: This nodule is new. Nodule characteristics: Composition: Solid (2). Echogenicity: Isoechoic (1). Shape: Not taller than wide (0). Margins: Ill-defined (0). Echogenic Foci: None (0). ACR TI-RADS total points: 3 Previous: n/a ACR TI-RADS category: 3 Previous: n/a Significant change in size (>/= 20% in 2 dimensions and minimal increase of 2 mm or 50% or greater increase in volume): Not applicable Change in features: Not applicable Change in ACR TI-RADS risk category: n/a 2. Location: Right lateral mid. Size: 0.52 x 0.34 x 0.47 cm, volume 0.04 mL. Previously: 0.43 x 0.31 x 0.42 cm, volume 0.03 mL. Nodule characteristics: Composition: Solid (2). Echogenicity: Isoechoic (1). Shape: Not taller than wide (0). Margins: Smooth (0). Echogenic Foci: None (0). ACR TI-RADS total points: 3 Previous: n/a ACR TI-RADS category: 3 Previous: n/a Significant change in size (>/= 20% in 2 dimensions and minimal increase of 2 mm or 50% or greater increase in volume): No Change in features: No Change in ACR TI-RADS risk category: n/a NODES: No lymphadenopathy is seen in the tissue surrounding the thyroid gland. US/US thyroid IMPRESSION: Some tiny thyroid nodules seen, no follow up is indicated. The previously biopsied isthmic nodule has been removed. ACR TI-RADS RECOMMENDATION REFERENCE: Ultrasound-guided fine-needle aspiration, followup ultrasound, no further follow up. * TR1 (0 point) and TR 2 (2 points): No FNA or follow up * TR3 (3 points): FNA if more than or equal to 2.5 cm in maximum dimension, followup ultrasound in 1, 3 and 5 years if 1.5 to 2.4 cm in maximum dimension. * TR4 (4-6 points): FNA if more than or equal to 1.5 cm in maximum dimension, followup ultrasound in 1, 2, 3 and 5 years if 1 to 1.4 cm in maximum dimension. * TR5 (more than or equal to 7 points): FNA if more than or equal to 1 cm in maximum dimension, followup ultrasound every year for 5 years if 0.5 to 0.9 cm in maximum dimension. * TR3, TR4 or TR5 nodules that are below the size threshold for follow up receive no follow up.
== END 2021-05-23 13:01 | disposition home or self-care (01) ==
LOC: HO.HMGCX 13:00
PROVIDERS: PCP Internal Medicine; Visit Provider Internal Medicine
DX: E04.2 Nontoxic multinodular goiter (principal)
CPT/HCPCS: 76536

== ENCOUNTER 2021-06-03 08:04 | Outpatient (REF) | payer OTHER, SELFPAY | END 2021-06-03 08:05 | disposition home or self-care (01) | LOC: HO.MDS 08:04 | PROVIDERS: PCP Internal Medicine; Visit Provider Internal Medicine | DX: D50.9 Iron deficiency anemia, unspecified (principal) | CPT/HCPCS: J1200; J1750 ==

== ENCOUNTER 2021-06-11 11:35 | Outpatient (REF) | payer OTHER, SELFPAY ==
--- NOTE | ~2021-06-11 | XR_ITS ---
EXAMINATION: XR ABDOMEN KUB CLINICAL INDICATION: Personal history of disease. COMPARISON: Rn Cardiology film CT 04/22/2021. TECHNIQUE: AP view of the abdomen. FINDINGS: Surgical clips once again left upper abdomen. The bowel pattern is nonobstructing. Bowel pattern is similar to materials director film from CT. Some stool in the right-sided colon. No suspicious calcification. XR/XR KUB IMPRESSION: Appearance is similar to materials director film from CT of 04/22/2020. Nonobstructive bowel pattern. Mild colonic stool.
== END 2021-06-11 11:36 | disposition home or self-care (01) ==
LOC: HO.MDS 11:35
PROVIDERS: PCP Internal Medicine; Visit Provider Internal Medicine
DX: D50.9 Iron deficiency anemia, unspecified (principal); G70.00 Myasthenia gravis without (acute) exacerbation; R55 Syncope and collapse; R10.12 Left upper quadrant pain; Z87.19 Personal history of other diseases of the digestive system
CPT/HCPCS: 74018; 96365; 96375; 99202; J1756; Q0163

== ENCOUNTER → 2021-06-12 13:56 | Outpatient (BNVA) | payer OTHER, SELFPAY | PROVIDERS: PCP Internal Medicine; Visit Provider Surgery | DX: K42.9 Umbilical hernia without obstruction or gangrene (principal) | CPT/HCPCS: 99202 ==

== ENCOUNTER 2021-06-14 11:30 | Outpatient (RCR) | payer OTHER, SELFPAY ==
--- NOTE | 2021-05-28 12:09 | MHC.OT.OEV ---
[address] [phone] F: [phone] Occupational Therapy Evaluation Diagnosis: Right hand pain Date of Onset: 01/31/21 Attending Provider: Dr Odell Rico Prescribed Treatment: Eval and nichelle KENDALL Follow Up Appointment: History of Current Condition: 36 yo female w/ hx of cervical issues over the past 5-6 years, reports increasing numbness and weakness in right arm over the past three months. Significant Medical History: Myasthnenia Gravis Back pain Asthma Dizziness Precautions/Contraindications: Patient Goals: Hand Dominance: Right Observations: QuickDASH Score: 75 Prior Level of Function and Occupation Self Care, Employment, Leisure: Currently not working Living Situation, Family and/or Social Support: , four children (17, 16, 10 and 4) Current Level of Function and Occupation Self Care, Employment, Leisure: Able to do light daily activities Family helps w/ heavy house Sleep: Sleeping prone, arms to side or by her head Wakes at night with pain Arm to hand becomes cold while sleeping Driving: Using non-dom left hand Vision: Balance: Pain Assessment Pain Score: 8 Pain Scale Used: Pain Location and Description: Right UE, radiates shoulder to hand; tired, ache, stabbing in forearm Tenderness to palpate soft tissues/muscle bellies volar and dorsal forearm and upper arm Old mild tenderness in med/lat epicondyles Aggravating Factors: Holding objects, lifting heavier objects Alleviating Factors: Heat from shower or hot pack Skin and Soft Tissue Assessment Skin and Soft Tissue: Comments: Nerve assessment Ulnar Nerve: Right Impaired Median Nerve: Radial Nerve: Comments: 3/5 small finger add unable to add thumb to hold paper when pulled Sensory Assessment Temperature: Light Touch: B/L Impaired Proprioception: Vibration: Comments: George Brandin R 4.31 throughout palm L 3.61 throughout palm Edema Assessment Upper Extremity: Lower Extremity: Comments: Difficult assessing fully due to clothing Wrist R 15.5 cm L 15.0 cm Dexterity Assessment Dexterity: Comments: Nine hole peg R 41 sec L 27 sec Special Tests Comments: AROM(PROM) Strength Cervical Cervical Flexion: Cervical Extension: Cervical Lateral Flexion: Cervical Rotation: Comments: Stiffness w/ rotation and ext Shoulder Flexion: R 90 L 150 Extension: WFL Abduction: R 80 L 150 Internal Rotation: WNL External Rotation: WNL Comments: shoulder flex and abd w/ pain and heaviness Flexion: Extension: Abduction: Internal Rotation: External Rotation: Comments: Elbow Flexion: Extension: Pronation: Supination: Comments: WFL Flexion: R 4- L 5 Extension: R 4- L 5 Pronation: Supination: Comments: Wrist Flexion: Extension: Ulnar Deviation: Radial Deviation: Comments: WFL Flexion: R 4 L 5 Extension: R 4 L 5 Ulnar Deviation: Radial Deviation: Comments: Thumb Thumb CMC Flexion: Thumb MCP Flexion: Thumb IP Flexion: Radial Abduction: Palmar Abduction: Austin (Kapandji 0-10): Comments: WFL Digits Index MCP: PIP: DIP: Long MCP: PIP: DIP: Ring MCP: PIP: DIP: Small MCP: PIP: DIP: Comments: WFL Gross Grasp: R 2 L 15 Lateral Pinch: R 1 L 3 Two-Point Pinch: R 1 L 2 Three-Jaw Gilmer: R 1 L 2 Comments: Patient Education Primary Language: Danish [employer] Assistant Teacher Required: No Current Knowledge: Understands information with skills for self-management Teaching Method: Handouts Verbal Education Needs Identified on Evaluation: ADL's Disease Information Equipment Use Exercise Pain Safety How did patient/family demonstrate learning? Patient demonstrates Patient verbalizes Barriers to Learning: None Readiness for Learning: Accepting Who was educated? Patient Comments: Plan of Care Assessment: 36 yo right hand dominant female presents w/ persistant right hand and arm pain, weakness and numbness over the past three months. She reports history of cervical issues for about 5-6 years. She was seen in PT about three months ago for her neck, but was referred back to the doctor for assessment of VBI and did not follow up for further PT after receiving treatment. At this time, she continues to have decreased neck range and likely referred symptoms hand to shoulder. She has ulnar weakness and slightly decreased elbow, wrist and shoulder strength. She has significantly decreased gross grasp bilaterally, right worse than left. George Brandin indicated left hand impaired light touch and right hand diminished protective sensation, she also has decreased dexterity in right hand. We will continue OT to address gross weakness, coordination and general pain relief w/ joint protection, but she would also benefit from restarting physical therapy to address cervical issues, and she will call for new order. STG Duration: 2 weeks Short Term Goals: Ind w/ HEP Pt to report good follow through w/ nighttime positioning to decrease pain Right hand gross grasp 10lb LTG Duration: 4 weeks Mcc Goals: Pt to demo active reach overhead to 120 degrees flex Quickdash <50 pts Right gross grasp 20lb Nine hole peg <30 sec Pt to report <3/10 pain/numbness daily Frequency and Duration: The patient will be seen 2x/wk for 4 weeks Treatment Plan: Therapeutic Exercise Therapeutic Activity Home Exercise Program Patient Education ADL Training MHP Soft Tissue Mobilization Electronically Signed By: Viky Elaine OTR/L Reviewed/agree with student documentation: N/A Therapist: Please sign and return to therapist, Thank you for your referral.
--- NOTE | 2021-06-05 14:58 | MHC.HEMONC ---
Patient confirmed Iron injection for June 11 at 1230.
--- NOTE | 2021-06-14 12:06 | MHC.OT.DC ---
[address] [phone] F: [phone] Occupational Therapy Discharge Note Provider: Dr Cortney Rico Diagnosis: Right hand pain Date of Evaluation: 05/28/21 Date of Discharge: 06/14/21 Treatments to Date: 5 Discharge Status: Recommend MD Follow-up Discharge Summary: Noor continues to have moderate/high pain diffuse through right UE w/ significant muscle fatigue and general weakness. No change in strength, ROM or coordination. May benefit from PT assessment for upper back, neck, shoulder involvement, thank you. Electronically Signed By: Viky Elaine OTR/L Please Sign and return to therapist, thank you for your referral.
== END 2021-06-14 12:06 | disposition home or self-care (01) ==
LOC: HO.OT 11:30
PROVIDERS: PCP Internal Medicine; Visit Provider Internal Medicine
DX: M79.641 Pain in right hand (principal)
CPT/HCPCS: 97110; 97140; 97166

== ENCOUNTER 2021-06-17 12:09 | Outpatient (REF) | payer OTHER, SELFPAY | END 2021-06-17 12:10 | disposition home or self-care (01) | LOC: HO.MDS 12:09 | PROVIDERS: PCP Internal Medicine; Visit Provider Internal Medicine | DX: D50.9 Iron deficiency anemia, unspecified (principal) | CPT/HCPCS: 96365; 96375; J1756; Q0163 ==

== ENCOUNTER → 2021-06-19 08:06 | Outpatient (BNVA) | payer OTHER, SELFPAY | PROVIDERS: PCP Internal Medicine; Visit Provider Dietitian, Registered | DX: E66.9 Obesity, unspecified (principal); Z68.30 Body mass index [BMI] 30.0-30.9, adult | CPT/HCPCS: 97803 ==

== ENCOUNTER 2021-07-02 07:59 | Day surgery (SDC) | payer OTHER, SELFPAY ==
[2021-06-26 13:56] VITALS: BMI 30.6
[2021-07-02] VITALS (14 sets, daily range): BP systolic 113–128; BP diastolic 64–74; PULSE 66–90; RESP 16–18; TEMP 36.1–36.6; O2SAT 94–100
[2021-07-02 08:25] LABS: UPreg QC Valid YES; Urine Pregnancy NEGATIVE (NEGATIVE)
--- NOTE | 2021-07-02 08:31 | PC.NURSE ---
pt speaks [place] doesnot need jumpbasting canvas baster
--- NOTE | 2021-07-02 08:51 | MHC.SHP ---
Pre-Procedural Eval Section A Date of Service: 07/02/21 Section B Chief Complaint: Umbilical Hernia Allergies: Allergies Allergy/AdvReac Type Severity Reaction Status Date / Time Iodinated Contrast Media Allergy Intermediate DIFFICULTY Verified 06/18/21 16:19 [IV CONTRAST] BREATHING dextran sulfate Allergy Cough Verified 06/18/21 16:19 Plan I have reviewed the history and physical and performed a pertinent physical examination on my patient. No changes have occurred unless specified.
--- NOTE | 2021-07-02 08:53 | P.CONAN_ITS ---
[facility] Active Problems Active Problems: All Active Problems (Updated 06/26/21 @ 13:58 by Cecilia verma RN) Iron deficiency (Acute) Overweight (BMI 25.0-29.9) (Acute) Achylic anemia (Acute) History of chronic constipation (Acute) Neck pain (Acute) Vitamin D deficiency (Acute) Multinodular thyroid (Acute) Ocular myasthenia gravis (Acute) Right hand pain (Acute) Umbilical hernia (Acute) Abdominal pain, LUQ (left upper quadrant) (Acute) Iron deficiency anemia (Acute) Polyarthralgia (Acute) Acute hemorrhoid (Acute) Pre-syncope (Acute) Dizziness (Acute) Orthostatic hypotension (Acute) Past Medical History Medical History (Updated 06/26/21 @ 13:58 by Cecilia Marie RN) Abdominal pain, LUQ (left upper quadrant) Acute hemorrhoid Asthma COVID-19 vaccine series completed Dizziness Iron deficiency anemia Multinodular thyroid Neck pain Ocular myasthenia gravis Orthostatic hypotension Polyarthralgia Pre-syncope Right hand pain Umbilical hernia Vitamin D deficiency Family History Family History Mother Hypertension Diabetes Father No problems noted. Paternal Uncle Breast cancer Surgical History Surgical History (Updated 06/26/21 @ 13:35 by Cecilia Marie RN) History of section History of esophagogastroduodenoscopy (EGD) History of gastric surgery History of thyroidectomy Social History Social History Housing: Apartment Alcohol intake: never Patient Tobacco Use Status: Never used Tobacco e-Cigarette/Vaping Use: Never Used Second Hand Smoke Exposure: No Use of substances other than those prescribed or required for medical reasons: No Are you DNR?: No Advance Directives Information Provided: Yes (states is ) Advance Directives on File: No Recently lost weight without trying: No Eating poorly because of decreased appetite: No Nutrition Risks: No Nutritional Risk Patient : No service: No Current occupational status: unemployed Meds Allergies Allergy/AdvReac Type Severity Reaction Status Date / Time Iodinated Contrast Media Allergy Intermediate DIFFICULTY Verified 06/18/21 16:19 [IV CONTRAST] BREATHING dextran sulfate Allergy Cough Verified 06/18/21 16:19 Home Medications Medication Instructions Recorded Confirmed Last Taken Type sodium chloride 1 gram tablet 1,000 mg PO DAILY 08/15/20 06/26/21 Unknown History baclofen 10 mg tablet 10 mg PO BID PRN 09/13/20 06/26/21 Unknown History cetirizine 10 mg tablet 10 mg PO DAILY 10/24/20 06/26/21 Unknown History diclofenac sodium 1 % topical gel 2 g TOPICAL BID-TID 10/24/20 06/26/21 Unknown History fluticasone 113 mcg-salmeterol 14 1 inh INHALATION BID 10/24/20 06/26/21 Unknown History mcg/actuation breath activated powdr hydroxyzine HCl 25 mg tablet 25 mg PO BID PRN 10/24/20 06/26/21 Unknown History ketotifen fumarate 0.025 % (0.035 1 drp OPHTHALMIC (EYE) Q8H ml 10/24/20 06/26/21 Unknown History %) eye drops lidocaine 5 % topical patch 1 patch TOPICAL DAILY 10/24/20 06/26/21 Unknown History pyridostigmine bromide 60 mg tablet 120 mg PO QID 10/24/20 06/26/21 07/02/21 History sertraline 100 mg tablet 100 mg PO DAILY 10/24/20 06/26/21 Unknown History zolpidem 5 mg tablet 5 mg PO BEDTIME PRN 10/24/20 06/26/21 Unknown History albuterol sulfate 90 mcg/actuation 2 puff PO Q4H PRN 05/15/21 06/26/21 Unknown History aerosol inhaler fluticasone propionate 110 2 puff INHALATION BID 05/15/21 06/26/21 Unknown History mcg/actuation HFA aerosol inhaler fluticasone propionate 50 1 spray INTRANASAL DAILY 05/15/21 06/26/21 Unknown History mcg/actuation nasal spray,suspension gabapentin 300 mg capsule 300 mg PO BID 05/15/21 06/26/21 Unknown History Exam Exam Date and Time: July 02, 2021 0853 Height,Weight and Vital Signs: Height 5 ft 3 in Weight 78.471 kg Last Vital Signs Temp 97.0 F 07/02/21 08:07 Pulse 78 07/02/21 08:07 Resp 18 07/02/21 08:07 BP 114/70 07/02/21 08:07 Pulse Ox 98 07/02/21 08:07 Pertinent Lab Results Pertinent Lab Results: Laboratory Tests 07/02/21 08:05 Urine Test NEGATIVE Airway Mallampati Class: II TM Dist: >3cm Neck ROM: Full
[2021-07-02] MEDS: Lactated Ringers 1,000 ML 100 ML IVCONT (08:56)
--- NOTE | 2021-07-02 09:52 | P.OP_ITS ---
Operative Note Operative Note Date of Service: 07/02/21 Narrative: Preop diagnosis: Umbilical hernia Postop diagnosis: Umbilical hernia Procedure: Repair of umbilical hernia Surgeon: Carroll Camilo MD office assistant receptionist: CARTER Santizo The patient is a 36 year female who had a recent CT scan abdominal pain which showed a small containing umbilical hernia. She was referred to me in the office and she describes periodic pain on the umbilicus and wanted to proceed with repair despite the small size of the hernia. I explained to her the technique of the procedure. I reviewed the risks Gerri including but not limited to bleeding, infections, recurrence, poor healing, bowel injury, as well as benefits and alternatives. She wanted to proceed She was brought to the operating room and placed supine under general anesthesia via laryngeal mask airway. The abdomen is prepped and draped in usual sterile fashion. A surgical time-out was done. The patient received cefazolin 2 g IV preoperatively I infiltrated the planned line of incision on the supraumbilical margin. I made the incision in a transverse curvilinear fashion using blade 15. This was carried down through the full-thickness of the skin and subcutaneous fat with electrocautery. We then proceeded to gently lift the umbilicus as a flap off of the abdominal wall itself using careful dissection sharply with the Metzenbaum scissors as well as electrocautery. Eventually I was able to lift up the entire umbilicus and I was able to visualize the small hernia. I proceeded to gently dissect the fat within the hernia off of the rest the fascial edges until I was able to reduce this completely. The fascial defect was very small, less than 1 cm in size. I therefore decided to repair this primarily without mesh. I lifted the fascia with Adam clamps to expose this. I then made a [id number]-[id number] stitch using Maxon 1 to close the hernia defect. I irrigated the area. The umbilicus was then tacked down to the fascia with a Dexon 3-0 stitch to re- create the dimple. The subcutaneous layer was reapposed with Dexon 3-0 interrupted sutures. Skin closure was achieved with Dexon 4-0 subcuticular running stitch. Steri-Strips and dressings were applied. The incision was infiltrated with Marcaine 0.5% for postop analgesia and the procedure was completed The patient tolerated the procedure well. The complication noted. Initial and final counts of sponges and instruments were correct. Estimated blood loss was 1 cc. The patient was then extubated without difficulty and transferred to the recovery room with stable vital signs.
--- NOTE | 2021-07-02 09:57 | PM.OP ---
Brief Operative Note Date of Service: 07/02/21 Pre-op diagnosis: Umbilical hernia Post-op diagnosis: same Procedure: Repair of umbilical hernia Surgeon: Carroll Camilo MD Anesthesia: GLMA Was an Laboratory Immunologist used for this Procedure?: Yes Laboratory Immunologist: Maral Santizo Estimated blood loss (mL): 1 Pathology: none sent Condition: stable Disposition: PACU
[2021-07-02] MEDS: oxyCODONE HCl Immed Release 5 MG TABLET PO (10:29)
[2021-07-02] MEDS: fentaNYL citrate/PF 100 MCG/2 ML VIAL 50 MCG IVPUSH ×2 (10:29→10:50)
== END 2021-07-02 12:43 | disposition home or self-care (01) ==
PROVIDERS: Anesthesiology; PCP Internal Medicine; Visit Provider Surgery
PROC: (CPT 49585; principal; 2021-07-02 09:40)
DX: K42.9 Umbilical hernia without obstruction or gangrene (principal)
CPT/HCPCS: 49585; 81025; J0690; J1100; J1885; J2250; J2370; J2405; J3010

== ENCOUNTER → 2021-07-11 12:41 | Outpatient (BNVA) | payer OTHER, SELFPAY | PROVIDERS: PCP Internal Medicine; Referring Provider Internal Medicine; Visit Provider Internal Medicine | DX: I95.1 Orthostatic hypotension (principal); R55 Syncope and collapse; R42 Dizziness and giddiness | CPT/HCPCS: 93005; 99212 ==

== ENCOUNTER → 2021-07-15 13:48 | Outpatient (BNVA) | payer OTHER, SELFPAY | PROVIDERS: PCP Internal Medicine; Referring Provider Internal Medicine; Visit Provider Surgery | DX: K42.9 Umbilical hernia without obstruction or gangrene (principal); D50.9 Iron deficiency anemia, unspecified; E04.2 Nontoxic multinodular goiter; G70.00 Myasthenia gravis without (acute) exacerbation; R55 Syncope and collapse; E55.9 Vitamin D deficiency, unspecified; Z88.8 Allergy status to other drugs, medicaments and biological substances; Z91.041 Radiographic dye allergy status | CPT/HCPCS: 99212 ==

== ENCOUNTER → 2021-07-30 08:09 | Outpatient (BNVA) | payer OTHER, SELFPAY | PROVIDERS: PCP Internal Medicine; Visit Provider Physician Assistant ==

== ENCOUNTER 2021-08-15 09:00 | Outpatient (RCR) | payer OTHER, SELFPAY ==
--- NOTE | 2021-07-24 10:51 | MHC.PT.EP ---
[facility] [place] Office [place] Office [place] Office [address] [phone] F: [phone] F: [phone] F: [phone] F: [phone] Physical Therapy Plan of Care Date of Evaluation: Date of Surgery: Diagnosis: This is a 36 yo female presenting to skilled PT with a script for cervicalgia Assessment: This is a 36 yo female presenting to skilled PT with a script for cervicalgia. Her pain began 5 years ago and has recently gotten worse. No injury noted. Pain is located at the base of the neck and into the UT's and then this runs into BUE and hand involving all 5 fingers (R is worse than the L). Described as pins and needles, stabbing and numbness. She is RHD. She has had injections in the BUT's but this has not been helpful. She also reports seeing a chiropractor which was helpful. Assessment reveals pain that ranges up to an 8/10. She demos decreased cervical and shoulder ROM, decreased cervical and shoulder strength, impaired posture with forward head and rounded shoulders, tenderness to palpation throughout BUE and UT's as well as gross functional decline with general movement and housework. She demos very little movement and has a decreased tolerance for pain management. She is a good candidate for skilled PT 2x/wk for 5wks. Frequency and Duration: The patient will be seen 2x/wk for 5wks Short Term Goals: I in HEP Demo proper cervical alignment and posture with ther-ex, no PT cuing Director Speech And Hearing Goals: Demo normal cervical AROM without pain Improve pain to no more than 2/10 at the worst Improve NDI by 10 points Tolerate sleeping through the night without waking from pain Demo at least 4+/5 scapular and shoulder strength Treatment Plan: Modalities to reduce pain, spasms and effusion. Manual therapy to restore motion and function. Therapeutic exercise to improve strength and flexibility. Neuromuscular re-education for posture and balance. Therapeutic activities to return to functional activities of daily living. Electronically signed by: Rajni Cai PT Please sign and return to therapist. Thank you for your referral.
--- NOTE | 2021-10-04 15:32 | MHC.PT.DC ---
[facility] [place] Office [place] Office [place] Office [address] [phone] F: [phone] F: [phone] F: [phone] F: [phone] Physical Therapy Discharge Report Diagnosis: This is a 36 yo female presenting to skilled PT with a script for cervicalgia Date of Surgery: Date of Evaluation: 07/24/21 Date of Discharge: 10/04/21 Treatments to Date: 4 Cancellations to Date: 2 No Shows to Date: 0 Discharge Status: Patient Elected to Stop Discharge Summary: Patient elected to stop PT, reported not getting better. Has an HEP to continue on own. Kept chart open for 30 days prior to DC. DC to HEP and recommended followup with MD Electronically signed by: Rajni Cai PT Please sign and return to therapist. Thank you for your referral.
== END 2021-10-04 15:33 | disposition home or self-care (01) ==
LOC: HO.PTCHIC 09:00
PROVIDERS: PCP Internal Medicine; Visit Provider Internal Medicine
DX: M54.2 Cervicalgia (principal)
CPT/HCPCS: 97012; 97110; 97140; 97161

== ENCOUNTER 2021-08-29 10:57 | Outpatient (REF) | payer OTHER, SELFPAY | END 2021-08-29 10:58 | disposition home or self-care (01) | LOC: HO.MDS 10:57 | PROVIDERS: PCP Student in an Organized Health Care Education/Training Program; Visit Provider Internal Medicine | DX: D50.9 Iron deficiency anemia, unspecified (principal); G70.00 Myasthenia gravis without (acute) exacerbation; I95.1 Orthostatic hypotension | CPT/HCPCS: 96365; J2916 ==

== ENCOUNTER 2021-09-02 13:06 | Outpatient (REF) | payer OTHER, SELFPAY | END 2021-09-02 13:07 | disposition home or self-care (01) | LOC: HO.MDS 13:06 | PROVIDERS: PCP Internal Medicine; Visit Provider Internal Medicine | DX: D50.9 Iron deficiency anemia, unspecified (principal); I95.1 Orthostatic hypotension | CPT/HCPCS: 96365; J2916 ==

== ENCOUNTER 2021-09-09 13:22 | Outpatient (REF) | payer OTHER, SELFPAY | END 2021-09-09 13:23 | disposition home or self-care (01) | LOC: HO.MDS 13:22 | PROVIDERS: PCP Internal Medicine; Visit Provider Internal Medicine | DX: D50.9 Iron deficiency anemia, unspecified (principal) | CPT/HCPCS: 96365; J2916 ==

== ENCOUNTER 2021-09-16 10:23 | Outpatient (REF) | payer OTHER, SELFPAY | END 2021-09-16 10:24 | disposition home or self-care (01) | LOC: HO.MDS 10:23 | PROVIDERS: PCP Internal Medicine; Visit Provider Internal Medicine | DX: D50.9 Iron deficiency anemia, unspecified (principal) | CPT/HCPCS: 96365; J2916 ==

== ENCOUNTER 2021-09-23 13:29 | Outpatient (REF) | payer OTHER, SELFPAY | END 2021-09-23 13:30 | disposition home or self-care (01) | LOC: HO.MDS 13:29 | PROVIDERS: PCP Internal Medicine; Visit Provider Internal Medicine | DX: D50.9 Iron deficiency anemia, unspecified (principal); G70.00 Myasthenia gravis without (acute) exacerbation; R55 Syncope and collapse | CPT/HCPCS: 96365; J2916 ==

== ENCOUNTER 2021-09-30 13:30 | Outpatient (REF) | payer OTHER, SELFPAY | END 2021-09-30 13:31 | disposition home or self-care (01) | LOC: HO.MDS 13:30 | PROVIDERS: PCP Internal Medicine; Visit Provider Internal Medicine | DX: D50.9 Iron deficiency anemia, unspecified (principal); R55 Syncope and collapse; G70.00 Myasthenia gravis without (acute) exacerbation | CPT/HCPCS: 96365; J2916 ==

== ENCOUNTER 2021-10-31 13:01 | Emergency (ER) | payer OTHER, SELFPAY ==
--- NOTE | ~2021-10-31 | XR_ITS ---
EXAMINATION: XR LUMBAR SPINE XR SACRUM AND COCCYX CLINICAL INFORMATION: Vertebral point tenderness status post fall. COMPARISON: CT dated 04/22/2021. TECHNIQUE: Three views of the lumbosacral spine. 3 views of the sacrum and coccyx FINDINGS: Vertebral body heights are normal. No fracture or spondylolisthesis endplate osteophytes are present at multiple levels in the lumbar spine. Intervertebral disc heights are normal. Mild right convex lumbar scoliosis. Surgical clips are present in the upper abdomen. Soft tissues are otherwise unremarkable. SI joints appear well-preserved. No fracture or malalignment in the sacrum and coccyx. Bone mineralization is normal. XR/XR lumbar spine 2-3V IMPRESSION: No acute fracture or acute malalignment identified in the lumbar spine and sacrum/coccyx.
--- NOTE | ~2021-10-31 | XR_ITS ---
EXAMINATION: XR LUMBAR SPINE XR SACRUM AND COCCYX CLINICAL INFORMATION: Vertebral point tenderness status post fall. COMPARISON: CT dated 04/22/2021. TECHNIQUE: Three views of the lumbosacral spine. 3 views of the sacrum and coccyx FINDINGS: Vertebral body heights are normal. No fracture or spondylolisthesis endplate osteophytes are present at multiple levels in the lumbar spine. Intervertebral disc heights are normal. Mild right convex lumbar scoliosis. Surgical clips are present in the upper abdomen. Soft tissues are otherwise unremarkable. SI joints appear well-preserved. No fracture or malalignment in the sacrum and coccyx. Bone mineralization is normal. XR/XR sacrum coccyx min 2V IMPRESSION: No acute fracture or acute malalignment identified in the lumbar spine and sacrum/coccyx.
--- NOTE | ~2021-10-31 | XR_ITS ---
EXAMINATION: XR RIGHT HIP WITH AP PELVIS CLINICAL INFORMATION: Right hip pain status post fall. COMPARISON: CT abdomen pelvis dated 04/22/2021. TECHNIQUE: AP and frog-leg lateral views of the right hip and an AP view of the pelvis. FINDINGS: The bones and soft tissues are normal. No fracture. Sacroiliac and hip joints are normal. Pubic symphysis is normal. No abnormal soft tissue calcifications. XR/XR hip RT w PEL1V IMPRESSION: No acute fracture or malalignment in the pelvis and right hip.
[2021-10-31 13:55] VITALS: BP 114/58; PULSE 77; RESP 18; TEMP 36.6; O2SAT 98; BMI 29.2
[2021-10-31 18:07] VITALS: BP 116/62; PULSE 76; RESP 18; TEMP 36.6; O2SAT 98
--- NOTE | 2021-10-31 18:19 | ED.FALL ---
HPI - Fall General Chief Complaint: Fall <CARTER Lujan Last Filed: 10/31/21 19:31> Stated Complaint: right hip injury <CARTER Lujan Last Filed: 10/31/21 19:31> Time Seen by Provider: 10/31/21 18:12 <CARTER Lujan Last Filed: 10/31/21 19:31> Source: patient <CARTER Lujan Last Filed: 10/31/21 19:31> Mode of arrival: ambulatory <ACRTER Lujan Last Filed: 10/31/21 19:31> Limitations: no limitations <CARTER Lujan Last Filed: 10/31/21 19:31> History of Present Illness HPI Narrative: 36-year-old male presents with right hip and low back pain after falling in the bathtub and hitting her right hip yesterday. Patient states she has pain going down her right leg and it is hard to walk and hard to sit. Patient takes baclofen, gabapentin, Topamax, for her chronic low back pain. Patient has had no right leg weakness, no saddle paresthesias, no incontinence of urine or stool, no history of IV drug use, no hx cancer She did not hit her head, no loss of consciousness, no other injuries This was a mechanical fall, patient was not lightheaded or dizzy prior to falling, no chest pain or shortness of breath <CARTER Lujan Last Filed: 10/31/21 19:31> MD complaint: fall <CARTER Lujan Last Filed: 10/31/21 19:31> Onset (ago): day(s) (1) <CARTER Lujan - Last Filed: 10/31/21 19:31> Fall from: standing <CARTER Lujan Last Filed: 10/31/21 19:31> Fall witnessed: no <CARTER Lujan Last Filed: 10/31/21 19:31> Place fall occurred: home <CARTER Lujan Last Filed: 10/31/21 19:31> Loss of consciousness: none <CARTER Lujan Last Filed: 10/31/21 19:31> Prolonged down time: no <CARTER Lujan Last Filed: 10/31/21 19:31> Symptoms prior to fall: none <CARTER Lujan - Last Filed: 10/31/21 19:31> Context: tripped/slipped <CARTER Lujan - Last Filed: 10/31/21 19:31> Location of injury: pelvis <CARTER Lujan - Last Filed: 10/31/21 19:31> Location of injury - extremities: right: thigh <CARTER Lujan - Last Filed: 10/31/21 19:31> Severity: moderate <CARTER Lujan - Last Filed: 10/31/21 19:31> Quality: sharp and stabbing <CARTER Lujan - Last Filed: 10/31/21 19:31> Associated symptoms (after fall): denies <CARTER Lujan Last Filed: 10/31/21 19:31> Related Data Home Medications: Home Medications Medication Instructions Recorded Confirmed sodium chloride 1 gram tablet 1,000 mg PO DAILY 08/15/20 07/30/21 baclofen 10 mg tablet 10 mg PO BID PRN 09/13/20 07/30/21 cetirizine 10 mg tablet 10 mg PO DAILY 10/24/20 07/30/21 diclofenac sodium 1 % topical gel 2 g TOPICAL BID-TID 10/24/20 07/30/21 hydroxyzine HCl 25 mg tablet 25 mg PO BID PRN 10/24/20 07/30/21 ketotifen fumarate 0.025 % (0.035 1 drp OPHTHALMIC (EYE) Q8H ml 10/24/20 07/30/21 %) eye drops lidocaine 5 % topical patch 1 patch TOPICAL DAILY 10/24/20 07/30/21 pyridostigmine bromide 60 mg tablet 120 mg PO QID 10/24/20 07/30/21 sertraline 100 mg tablet 100 mg PO DAILY 10/24/20 07/30/21 zolpidem 5 mg tablet 5 mg PO BEDTIME PRN 10/24/20 07/30/21 fluticasone propionate 110 2 puff INHALATION BID 05/15/21 07/30/21 mcg/actuation HFA aerosol inhaler fluticasone propionate 50 1 spray INTRANASAL DAILY 05/15/21 07/30/21 mcg/actuation nasal spray,suspension gabapentin 300 mg capsule 300 mg PO BID 05/15/21 07/30/21 Previous Rx's Medication Instructions Recorded ferrous sulfate 325 mg (65 mg 325 mg PO BID 30 Days #60 tab 02/19/21 iron) tablet meclizine 25 mg tablet 25 mg PO TID PRN 30 Days #90 tab 05/14/21 cholecalciferol (vitamin D3) 1,250 1,250 mcg PO QWEEK 56 Days #8 cap 05/22/21 mcg (50,000 unit) capsule cholecalciferol (vitamin D3) 50 50 mcg PO DAILY 30 Days #30 cap 05/22/21 mcg (2,000 unit) capsule bisacodyl 10 mg rectal suppository 10 mg DC DAILY PRN #20 ea 06/11/21 (Dulcolax (bisacodyl)) docusate sodium 100 mg capsule 200 mg PO BEDTIME #60 cap 06/11/21 (Colace) polyethylene glycol 3350 17 gram 17 g PO DAILY #30 ea 06/11/21 oral powder packet (Miralax) midodrine 10 mg tablet 10 mg PO TID #90 tab 07/11/21 vitamin A palmitate 10,000 unit 20,000 unit PO DAILY 14 Days #28 07/11/21 tablet tab methylcellulose (laxative) 500 mg 500 mg PO BID #60 tab 07/30/21 tablet (Citrucel) albuterol sulfate 90 mcg/actuation 2 puff PO Q4H PRN 30 Days #6.7 g 10/10/21 aerosol inhaler cyclobenzaprine 10 mg tablet 10 mg PO TID PRN #10 tab 10/31/21 ibuprofen 600 mg tablet 600 mg PO Q8H PRN #20 tab 10/31/21 lidocaine 5 % topical patch 1 patch TOPICAL DAILY #15 ea 10/31/21 <CARTER Lujan - Last Filed: 10/31/21 19:31> Allergies/Adverse Reactions: Allergies Allergy/AdvReac Type Severity Reaction Status Date / Time Iodinated Contrast Media Allergy Intermediate DIFFICULTY Verified 07/18/21 10:46 [IV CONTRAST] BREATHING dextran sulfate AdvReac Mild Cough Verified 07/18/21 10:46 <CARTER Lujan - Last Filed: 10/31/21 19:31> Review of Systems Constitutional: Constitutional: Denies body ache(s), Denies chills, Denies fatigue, Denies fever(s), Denies headache(s), Denies malaise and Denies weakness <CARTER Lujan Last Filed: 10/31/21 19:31> Eyes: Eyes: Denies diplopia <CARTER Lujan Last Filed: 10/31/21 19:31> ENT: Denies vertigo, Denies dizziness, Denies otalgia, Denies headache(s), Denies mouth pain, Denies post nasal drip, Denies sinus pain, Denies sinus pressure, Denies sore throat and Denies throat swelling <CARTER Lujan Last Filed: 10/31/21 19:31> Cardiovascular: Cardiovascular: Denies chest pain, Denies syncope, Denies leg edema, Denies lightheadedness, Denies Loss of Consciousness, Denies palpitations and Denies dyspnea <CARTER Lujan Last Filed: 10/31/21 19:31> Respiratory: Respiratory: Denies chest congestion, Denies cough and Denies dyspnea <CARTER Lujan Last Filed: 10/31/21 19:31> Gastrointestinal: Gastrointestinal: Reports abdominal pain, Denies hematochezia, Denies constipation, Denies diarrhea and Denies vomiting <CARTER Lujan Last Filed: 10/31/21 19:31> Musculoskeletal: Musculoskeletal: Reports back pain, Reports arthralgias and Reports radiating pain into limb <CATRER Lujan Last Filed: 10/31/21 19:31> Neurologic: Denies confusion, Denies vertigo, Denies dizziness, Denies syncope, Denies headache(s) and Denies weakness <CARTER Lujan Last Filed: 10/31/21 19:31> Psychiatric: Psychiatric: Denies anxiety, Denies confusion and Denies depression <CARTER Lujan Last Filed: 10/31/21 19:31> Endocrine: Endocrine: Denies fatigue and Denies palpitations <CARTER Lujan Last Filed: 10/31/21 19:31> Allergic/Immunologic: Allergic/Immunologic: Denies throat swelling <CARTER Lujan - Last Filed: 10/31/21 19:31> [facility] Past Medical History Medical History: Medical History Abdominal pain, LUQ (left upper quadrant) Acute hemorrhoid Asthma Class 1 obesity with body mass index (BMI) of 30.0 to 30.9 in adult COVID-19 vaccine series completed Dizziness Iron deficiency anemia Multinodular thyroid Neck pain Ocular myasthenia gravis Orthostatic hypotension Polyarthralgia Pre-syncope Right hand pain Umbilical hernia Vitamin D deficiency <CARTER Lujan - Last Filed: 10/31/21 19:31> Surgical History: Surgical History History of section History of esophagogastroduodenoscopy (EGD) History of gastric surgery History of thyroidectomy History of umbilical hernia repair (~07/02/21) <CARTER Lujan - Last Filed: 10/31/21 19:31> Family History Family History: Family History Mother Hypertension Diabetes Father No problems noted. Paternal Uncle Breast cancer <CARTER Lujan - Last Filed: 10/31/21 19:31> Social History Social History: Social History Housing: Apartment Alcohol intake: never Patient Tobacco Use Status: Never used Tobacco e-Cigarette/Vaping Use: Never Used Second Hand Smoke Exposure: No Advance Directives: No Advance Directives Information Provided: No Patient : No service: No Current occupational status: unemployed <CARTER Lujan - Last Filed: 10/31/21 19:31> Physical Exam Vital Signs: Vital Signs: Last Vital Signs Temp 97.9 F 10/31/21 18:07 Pulse 76 10/31/21 18:07 Resp 16 10/31/21 19:55 BP 116/62 10/31/21 18:07 Pulse Ox 98 10/31/21 18:07 BMI result Body Mass Index 29.2 <CARTER Lujan - Last Filed: 10/31/21 19:31> Vital Signs: Last Vital Signs Temp 97.9 F 10/31/21 18:07 Pulse 76 10/31/21 18:07 Resp 16 10/31/21 19:55 BP 116/62 10/31/21 18:07 Pulse Ox 98 10/31/21 18:07 BMI result Body Mass Index 29.2 <Rachel Licea DC - Last Filed: 10/31/21 20:18> Const: General: well developed, alert and awake; No confusion <CARTER Lujan Last Filed: 10/31/21 19:31> Nutritional Appearance: well nourished <Aylin Desai [facility] Last Filed: 10/31/21 19:31> Orientation/consciousness: patient oriented x3 and No confusion <Aylin Desai [facility] Last Filed: 10/31/21 19:31> Limitations: no limitations <Aylin Desai [facility] Last Filed: 10/31/21 19:31> HENMT: Head: Yes normal to inspection, Yes normocephalic and Yes atraumatic <Aylin Desai DC - Last Filed: 10/31/21 19:31> Ears: hearing grossly normal bilaterally, external ears normal, TM's normal bilaterally and EAC's normal <Aylin Desai DC - Last Filed: 10/31/21 19:31> General nose exam: Normal external nose present <CARTER Lujan Last Filed: 10/31/21 19:31> Face and sinus: Yes normal facial exam and Yes sinuses nontender <Aylin Desai [facility] Last Filed: 10/31/21 19:31> Mouth: Normal oral and palatal mucosa present <CARTER Lujan Last Filed: 10/31/21 19:31> Throat: Yes posterior oropharynx normal <Aylin Desai [facility] Last Filed: 10/31/21 19:31> Eyes: Conjunctivae: conjunctivae normal <CARTER Lujan - Last Filed: 10/31/21 19:31> Pupils: Equal, round and reactive pupils present <Aylin Desai [facility] Last Filed: 10/31/21 19:31> EOM: EOMs intact bilaterally <CARTER Lujan Last Filed: 10/31/21 19:31> Neck: Neck: Yes full ROM, Yes no lymphadenopathy and Yes supple <Aylin Desai [facility] Last Filed: 10/31/21 19:31> Resp: Effort & Inspection: normal respiratory effort and able to speak in complete sentences <Aylin Desai [facility] Last Filed: 10/31/21 19:31> Auscultation: clear to auscultation bilaterally, no crackles, no rales, no rhonchi and no wheezes <Aylin Desai [facility] Last Filed: 10/31/21 19:31> Cardio: Rate: regular rate <Aylin Desai [facility] Last Filed: 10/31/21 19:31> Rhythm: regular rhythm <Aylin Desai [facility] Last Filed: 10/31/21 19:31> Heart sounds: S1 normal heart sound present and S2 normal heart sound present <Aylin Desai [facility] Last Filed: 10/31/21 19:31> GI: Inspection: Yes normal to inspection <Aylin Desai [facility] Last Filed: 10/31/21 19:31> Palpation (GI): Soft to palpation, nontender, no guarding and not rigid <Aylin Desai [facility] Last Filed: 10/31/21 19:31> Percussion: Yes normal to percussion <Aylin Desai [facility] Last Filed: 10/31/21 19:31> Auscultation: normal bowel sounds <Aylin Desai [facility] Last Filed: 10/31/21 19:31> Back/Spine/Pelvis: Other: Pain over right hip and point tender over lumbar vertebrae and sacrum <Aylin Desai [facility] Last Filed: 10/31/21 19:31> Cervical Spine: normal cervical lordosis, cervical ROM normal, No cervical spasm, No Cervical spine tenderness and No step off deformity <Aylin eDsai [facility] Last Filed: 10/31/21 19:31> Thoracic/Lumbar Spine: thoraco-lumbar ROM normal, straight leg raise negative bilaterally, No paraspinal muscle tenderness, No thoraco-lumbar spasm, No thoracic spinal tenderness, lumbar spinal tenderness and No straight leg raise positive <Aylin Desai [facility] Last Filed: 10/31/21 19:31> Pelvis: no pain with anterior-posterior compression and no pain with lateral compression <CARTER Lujan - Last Filed: 10/31/21 19:31> Skin: General skin exam: no rashes or lesions noted <CARTER Lujan - Last Filed: 10/31/21 19:31> Neuro: General: patient oriented x3 and No confusion <CARTER Lujan - Last Filed: 10/31/21 19:31> Cranial nerves: Yes Equal, round and reactive pupils present <CARTER Lujan - Last Filed: 10/31/21 19:31> Extrem: General: Yes normal to inspection and Yes full ROM <CARTER Lujan - Last Filed: 10/31/21 19:31> Psych: Appearance: grossly normal <CARTER Lujan Last Filed: 10/31/21 19:31> Affect: normal affect <CARTER Lujan - Last Filed: 10/31/21 19:31> Attitude: cooperative <CARTER Lujan - Last Filed: 10/31/21 19:31> Thought process: Normal thought process present <CARTER Lujan Last Filed: 10/31/21 19:31> Course Course Course Narrative: 36-year-old who fell in the bathtub yesterday hitting her right hip presents with worsening right hip and low back pain. Patient has chronic low back pain. On exam, patient has intact lower extremity pulses, sensation, motor strength, and deep tendon reflexes. She is tender over her right anterior and lateral hip, she is very tender over her right buttock. Patient is also tender over her vertebrae; sacrum and lumbar Will get x-rays, gave pain medication. If x-rays are negative, will treat with ketorolac and Flexeril <CARTER Lujan - Last Filed: 10/31/21 19:31> Reevaluation(s) Reevaluation #1: Signed patient out to CARTER Prajapati, pending XR reads <CARTER Lujan - Last Filed: 10/31/21 19:31> Reevaluation #2: X-rays did not show any acute fractures. Patient is stable for discharge home with pain control and supportive care. <CARTER Prajapati - Last Filed: 10/31/21 20:18> Discharge Plan Discharge Clinical Impression: Acute pain of right hip, Acute exacerbation of chronic low back pain Fall Qualifiers: Encounter type: initial encounter Qualified Code(s): W19.XXXA - Unspecified fall, initial encounter <CARTER Lujan - Last Filed: 10/31/21 19:31> Patient Disposition: Home, Self-Care <CARTER Lujan - Last Filed: 10/31/21 19:31> Instructions: Low Back Strain (ED), Contusion in Adults (ED) <CARTER Lujan - Last Filed: 10/31/21 19:31> Additional Instructions: Your x-rays today are normal. Your pain is most likely muscular. No bending, lifting or twisting. Use ice several times per day for 20 minutes at a time for the next 48 hours and then change to heat. Take medications as prescribed to help with pain and discomfort. Follow up with your Primary Care Doctor this week. If your pain worsens, if you develop new numbness, tingling, weakness, loss of function or incontinence call 911 or come back to the ER right away for evaluation. <CARTER Lujan - Last Filed: 10/31/21 19:31> Prescriptions: New cyclobenzaprine 10 mg tablet 10 mg PO TID PRN (Reason: muscle spasm) Qty: 10 RF: 0 ibuprofen 600 mg tablet 600 mg PO Q8H PRN (Reason: pain) Qty: 20 RF: 0 lidocaine 5 % adhesive patch,medicated 1 patch topical DAILY Qty: 15 RF: 0 No Action cholecalciferol (vitamin D3) 50 mcg (2,000 unit) capsule 50 mcg PO DAILY 30 Days Qty: 30 RF: 11 cholecalciferol (vitamin D3) 1,250 mcg (50,000 unit) capsule 1,250 mcg PO QWEEK 56 Days Qty: 8 RF: 0 vitamin A palmitate 10,000 unit tablet 20,000 unit PO DAILY 14 Days Qty: 28 RF: 0 albuterol sulfate 90 mcg/actuation HFA aerosol inhaler 2 puff PO Q4H PRN (Reason: Wheezing) 30 Days Qty: 6.7 RF: 2 zolpidem 5 mg tablet 5 mg PO BEDTIME PRN (Reason: Insomnia) RF: 0 sertraline 100 mg tablet 100 mg PO DAILY RF: 0 ketotifen fumarate 0.025 % (0.035 %) drops 1 drp ophthalmic (eye) Q8H RF: 0 cetirizine 10 mg tablet 10 mg PO DAILY RF: 0 diclofenac sodium 1 % gel 2 g topical BID-TID RF: 0 lidocaine 5 % adhesive patch,medicated 1 patch topical DAILY RF: 0 hydroxyzine HCl 25 mg tablet 25 mg PO BID PRN (Reason: anxiety) RF: 0 pyridostigmine bromide 60 mg tablet 120 mg PO QID RF: 0 ferrous sulfate 325 mg (65 mg iron) tablet 325 mg PO BID 30 Days Qty: 60 RF: 3 baclofen 10 mg tablet 10 mg PO BID PRN (Reason: Muscle Pain) RF: 0 meclizine 25 mg tablet 25 mg PO TID PRN (Reason: dizziness) 30 Days Qty: 90 RF: 2 sodium chloride 1 gram tablet 1,000 mg PO DAILY RF: 0 midodrine 10 mg tablet 10 mg PO TID Qty: 90 RF: 4 gabapentin 300 mg capsule 300 mg PO BID RF: 0 Flovent HFA 110 mcg/actuation HFA aerosol inhaler 2 puff inhalation BID RF: 0 fluticasone propionate 50 mcg/actuation spray,suspension 1 spray intranasal DAILY RF: 0 bisacodyl [Dulcolax (bisacodyl)] 10 mg suppository 10 mg DC DAILY PRN (Reason: constipation) Qty: 20 RF: 0 polyethylene glycol 3350 [Miralax] 17 gram powder in packet 17 g PO DAILY Qty: 30 RF: 5 docusate sodium [Colace] 100 mg capsule 200 mg PO BEDTIME Qty: 60 RF: 5 Citrucel 500 mg tablet 500 mg PO BID Qty: 60 RF: 5 <CARTER Lujan - Last Filed: 10/31/21 19:31>
[2021-10-31] MEDS: oxyCODONE HCl Immed Release 5 MG TABLET PO (18:27)
[2021-10-31 19:55] VITALS: RESP 16
[2021-10-31] MEDS: Ketorolac Tromethamine 30 MG/ML VIAL IM (21:31)
== END 2021-10-31 21:37 | disposition home or self-care (01) ==
PROVIDERS: Emergency Provider Emergency Medicine Emergency Medical Services; PCP Internal Medicine
DX: S79.911A Unspecified injury of right hip, initial encounter (principal); M54.50 Low back pain, unspecified; M25.551 Pain in right hip; M54.6 Pain in thoracic spine; W18.2XXA Fall in (into) shower or empty bathtub, initial encounter; Y93.E1 Activity, personal bathing and showering; Y92.002 Bathroom of unspecified non-institutional (private) residence as the place of occurrence of the external cause; Y99.9 Unspecified external cause status; Z79.899 Other long term (current) drug therapy
CPT/HCPCS: 72100; 72220; 73502; 96372; 99284; J1885

== ENCOUNTER 2021-11-14 10:27 | Outpatient (REF) | payer OTHER, SELFPAY ==
[2021-11-14 11:43] LABS: MANUAL DIFF FLAG NO
[2021-11-14 11:54] LABS: Basophils Percent Auto 0.6 % (0-2); Eosinophils Absolute Auto 0.3 X10*3/uL (0.0-0.4); Hematocrit 37.4 % (37.0-47.0); Hemoglobin 11.5 g/dl (12.0-16.0); Imm Gran Abs Auto 0.05 X10*3/uL (0.00-0.03); Lymphocytes Absolute Auto 1.5 X10*3/uL (1.2-4.9); Lymphocytes Percent Auto 28.7 % (20-40); Mean Corpuscular HGB Conc 30.7 g/dl (31.0-35.0); Mean Corpuscular Hemoglobin 24.2 pg (27.0-33.0); Mean Corpuscular Volume 78.7 fL (80.0-98.0); Mean Platelet Volume 8.9 fL (9.4-12.3); Monocytes Absolute Auto 0.4 X10*3/uL (0.1-1.2); Monocytes Percent Auto 7.2 % (2-11); Neutrophils Absolute Auto 2.9 x10*3/uL (2.0-8.3); Neutrophils Percent Auto 56.5 % (45-73); Platelet Count 302 X10*3/uL (160-400); Red Blood Count 4.75 X10*6/uL (4.20-5.50); Red Cell Distribution Width 14.9 % (11.0-16.0); White Blood Count 5.2 X10*3/uL (4.8-10.8)
[2021-11-14 12:47] LABS: Vitamin D 25-OH Total 15.5 ng/mL (>30)
[2021-11-14 12:59] LABS: Alanine Aminotransferase 11 U/L (0-31); Albumin Level 4.1 g/dL (3.5-5.0); Alkaline Phosphatase 74 U/L (39-117); Anion Gap 9 (12-20); Aspartate Amino Transferase 13 U/L (5-31); Bilirubin Total 0.6 mg/dL (0.0-1.0); Blood Urea Nitrogen 10 mg/dL (9-16); Calcium 9.4 mg/dL (8.4-10.2); Carbon Dioxide 29 mmol/L (22-29); Chloride 107 mmol/L (96-108); Cholesterol 172 mg/dL; Estimated Glomerular Filt Rate > 60; Glucose Random 92 mg/dL (60-115); HDL Cholesterol 49 mg/dL; Iron 82 mcg/dL (30-160); LDL Cholesterol Calculated 104 mg/dl; Percent Iron Saturation 25 % (15-50); Potassium 3.9 mmol/L (3.3-5.1); Sodium 141 mmol/L (135-145); Total Iron Binding Capacity 325 mcg/dL (228-428); Triglycerides 95 mg/dL; Unsaturated Iron Binding 243 ug/dL
[2021-11-19 21:06] LABS: Vitamin A 30 mcg/dL (38-98)
[2021-11-22 14:36] LABS: Vitamin D 25-OH, D2 20 ng/mL; Vitamin D 25-OH, D3 10 ng/mL; Vitamin D 25-OH, Total 30 ng/mL (30-100)
== END 2021-11-14 10:28 | disposition home or self-care (01) ==
LOC: HO.LAB 10:27
PROVIDERS: Absent Provider Internal Medicine; PCP Internal Medicine; Visit Provider Physician Assistant
DX: E66.9 Obesity, unspecified (principal); Z68.30 Body mass index [BMI] 30.0-30.9, adult; E55.9 Vitamin D deficiency, unspecified; E61.1 Iron deficiency; Z90.3 Acquired absence of stomach [part of]; Z98.84 Bariatric surgery status; Z98.890 Other specified postprocedural states
CPT/HCPCS: 36415; 80053; 80061; 82306; 83540; 84590; 85025; 99212

== ENCOUNTER 2021-12-16 10:05 | Outpatient (REF) | payer OTHER, SELFPAY ==
[2021-12-17 13:40] LABS: H Pylori Breath Test Positive (Negative)
== END 2021-12-16 10:06 | disposition home or self-care (01) ==
LOC: HO.LNP 10:05
PROVIDERS: PCP Internal Medicine; Referring Provider Internal Medicine; Visit Provider Physician Assistant
DX: R10.11 Right upper quadrant pain (principal); R12 Heartburn; Z98.890 Other specified postprocedural states
CPT/HCPCS: 83013; 99212

== ENCOUNTER 2022-01-03 10:15 | Outpatient (REF) | payer OTHER, SELFPAY ==
[2022-01-03 10:44] LABS: MANUAL DIFF FLAG NO
[2022-01-03 11:09] LABS: Basophils Percent Auto 0.7 % (0-2); Eosinophils Absolute Auto 0.3 X10*3/uL (0.0-0.4); Eosinophils Percent Auto 6.1 % (0-4); Hematocrit 37.8 % (37.0-47.0); Hemoglobin 11.8 g/dl (12.0-16.0); Imm Gran Abs Auto 0.02 X10*3/uL (0.00-0.03); Imm Gran Pct Auto 0.4 % (0.0-0.4); Lymphocytes Absolute Auto 1.7 X10*3/uL (1.2-4.9); Lymphocytes Percent Auto 30.8 % (20-40); Mean Corpuscular HGB Conc 31.2 g/dl (31.0-35.0); Mean Corpuscular Hemoglobin 25.3 pg (27.0-33.0); Mean Corpuscular Volume 81.1 fL (80.0-98.0); Mean Platelet Volume 9.2 fL (9.4-12.3); Monocytes Absolute Auto 0.5 X10*3/uL (0.1-1.2); Monocytes Percent Auto 8.4 % (2-11); Neutrophils Percent Auto 53.6 % (45-73); Platelet Count 257 X10*3/uL (160-400); Red Blood Count 4.66 X10*6/uL (4.20-5.50); Red Cell Distribution Width 13.7 % (11.0-16.0); White Blood Count 5.6 X10*3/uL (4.8-10.8)
[2022-01-03 12:02] LABS: TSH reflex Free T4 0.36 uIU/mL (0.32-4.0)
[2022-01-03 12:07] LABS: Alanine Aminotransferase 11 U/L (0-31); Alkaline Phosphatase 67 U/L (39-117); Anion Gap 9 (12-20); Aspartate Amino Transferase 15 U/L (5-31); Bilirubin Total 0.6 mg/dL (0.0-1.0); Blood Urea Nitrogen 11 mg/dL (9-16); Calcium 9.4 mg/dL (8.4-10.2); Carbon Dioxide 28 mmol/L (22-29); Chloride 105 mmol/L (96-108); Cholesterol 184 mg/dL; Estimated Glomerular Filt Rate > 60; Glucose Fasting 92 mg/dL (60-99); HDL Cholesterol 52 mg/dL; Iron 58 mcg/dL (30-160); LDL Cholesterol Calculated 119 mg/dl; Percent Iron Saturation 17 % (15-50); Sodium 138 mmol/L (135-145); Total Iron Binding Capacity 345 mcg/dL (228-428); Total Protein 6.7 g/dL (6.5-8.0); Triglycerides 69 mg/dL; Unsaturated Iron Binding 287 ug/dL
[2022-01-08 02:37] LABS: Vitamin D 25-OH, D2 20 ng/mL; Vitamin D 25-OH, D3 15 ng/mL; Vitamin D 25-OH, Total 35 ng/mL (30-100)
[2022-01-09 10:05] LABS: Vitamin A 31 mcg/dL (38-98)
== END 2022-01-03 10:16 | disposition home or self-care (01) ==
LOC: HO.LAB 10:15
PROVIDERS: Absent Provider Physician Assistant; PCP Internal Medicine; Visit Provider Nurse Practitioner Family
DX: E61.1 Iron deficiency (principal); I10 Essential (primary) hypertension; E78.00 Pure hypercholesterolemia, unspecified; D64.9 Anemia, unspecified; E66.9 Obesity, unspecified; Z68.30 Body mass index [BMI] 30.0-30.9, adult; E78.5 Hyperlipidemia, unspecified; E55.9 Vitamin D deficiency, unspecified; Z98.84 Bariatric surgery status
CPT/HCPCS: 36415; 80053; 80061; 82306; 83540; 84443; 84590; 85025

== ENCOUNTER 2022-01-06 10:40 | Day surgery (SDC) | payer OTHER, SELFPAY ==
[2021-12-30 14:35] VITALS: BMI 31.4
--- NOTE | 2022-01-03 14:33 | MHC.SHP ---
Pre-Procedural Eval Section A Date of Service: 01/03/22 The patient is an INPATIENT: No Changes since office visit: No Cold of Flu in the past 2 weeks, No New Medical Problems, No Changes in Medication and No Patient answered all questions The History & Physical has been completed within 30 days and I have reviewed it.: Yes Section B Chief Complaint: Ptosis of left Eyelid Allergies: Allergies Allergy/AdvReac Type Severity Reaction Status Date / Time Iodinated Contrast Media Allergy Intermediate DIFFICULTY Verified 12/30/21 11:00 [IV CONTRAST] BREATHING dextran sulfate AdvReac Mild Cough Verified 12/30/21 11:00 Plan Diagnosis/Plan: Unchanged I have reviewed the history and physical and performed a pertinent physical examination on my patient. No changes have occurred unless specified.
[2022-01-06 11:25] VITALS: BP 113/68; PULSE 77; RESP 18; TEMP 36.6; O2SAT 100
[2022-01-06 11:28] LABS: UPreg QC Valid YES; Urine Pregnancy NEGATIVE (NEGATIVE)
[2022-01-06] MEDS: Lactated Ringers 500 ML 50 ML IVCONT (11:33)
--- NOTE | 2022-01-06 11:38 | P.CONAN_ITS ---
HPI - Anesthesia Eval Consult details Narrative: Left eye ptosis PMFSH Active Problems Active Problems: All Active Problems (Updated 12/30/21 @ 12:35 by ARYAN Valerio) Iron deficiency (Acute) Achylic anemia (Acute) History of chronic constipation (Acute) Chronic constipation (Acute) Heartburn (Acute) RUQ pain (Acute) H. pylori infection (Acute) Pre-op evaluation (Acute) History of gastric surgery (Acute) Back pain (Acute) Class 1 obesity with body mass index (BMI) of 30.0 to 30.9 in adult (Acute) Neck pain (Acute) Vitamin D deficiency (Acute) Multinodular thyroid (Acute) Ocular myasthenia gravis (Acute) Right hand pain (Acute) Umbilical hernia (Acute) Abdominal pain, LUQ (left upper quadrant) (Acute) Iron deficiency anemia (Chronic) Polyarthralgia (Acute) Acute hemorrhoid (Acute) Pre-syncope (Acute) Dizziness (Acute) Orthostatic hypotension (Acute) Past Medical History Medical History (Updated 12/30/21 @ 12:35 by ARYAN Valerio) Abdominal pain, LUQ (left upper quadrant) Acute hemorrhoid Asthma Back pain Class 1 obesity with body mass index (BMI) of 30.0 to 30.9 in adult COVID-19 vaccine series completed Dizziness Iron deficiency anemia Multinodular thyroid Neck pain Ocular myasthenia gravis Orthostatic hypotension Polyarthralgia Pre-syncope Right hand pain Umbilical hernia Vitamin D deficiency Family History Family History Mother Hypertension Diabetes Father No problems noted. Paternal Uncle Breast cancer Family history of problems with anesthesia: No Surgical History Surgical History (Updated 12/30/21 @ 14:13 by Cecilia Marie RN) History of section History of esophagogastroduodenoscopy (EGD) History of gastric surgery History of thyroidectomy History of umbilical hernia repair (~07/02/21) History of Problems with Anesthesia: No Social History Social History Housing: Apartment Are you a primary resident care assistant to a significant other at home: No Do you presently have visiting nurse or other home services: No Alcohol intake: never Patient Tobacco Use Status: Never used Tobacco e-Cigarette/Vaping Use: Never Used Second Hand Smoke Exposure: No Use of substances other than those prescribed or required for medical reasons: No Have you been hit, kicked, punched, or otherwise hurt by someone within the past year? If so, by whom?: No Are you DNR?: No Advance Directives Information Provided: Yes (brochure mailed) Advance Directives on File: No Recently lost weight without trying: No Eating poorly because of decreased appetite: No Nutrition Risks: No Nutritional Risk Patient : No service: No Current occupational status: unemployed Cognitive needs: No Hearing needs: No Vision needs: Yes (glasses) Meds Allergies Allergy/AdvReac Type Severity Reaction Status Date / Time Iodinated Contrast Media Allergy Intermediate DIFFICULTY Verified 12/30/21 11:00 [IV CONTRAST] BREATHING dextran sulfate AdvReac Mild Cough Verified 12/30/21 11:00 Active Medications: Current Medications Lactated Ringer's (Lr) 500 mls @ 50 mls/hr IVCONT .Q10H EDWIN Last Admin: 01/06/22 11:33 Dose: 50 mls/hr Documented by: Povidone Iodine (Povidone Iodine 5 % Ophth Soln 30 Ml Bottle) 1 appl EYE-LEFT PREOP PRN PRN Reason: Pre-Op Surgical Implant Prophy Home Medications Medication Instructions Recorded Confirmed Last Taken Type sodium chloride 1 gram tablet 1,000 mg PO DAILY 08/15/20 12/30/21 Unknown History cetirizine 10 mg tablet 10 mg PO DAILY 10/24/20 12/30/21 Unknown History diclofenac sodium 1 % topical gel 2 g TOPICAL BID-TID 10/24/20 12/30/21 Unknown History hydroxyzine HCl 25 mg tablet 25 mg PO BID PRN 10/24/20 12/30/21 Unknown History ketotifen fumarate 0.025 % (0.035 1 drp OPHTHALMIC (EYE) Q8H ml 10/24/20 12/30/21 Unknown History %) eye drops pyridostigmine bromide 60 mg 120 mg PO QID 10/24/20 12/30/21 07/02/21 History tablet (Mestinon) sertraline 100 mg tablet 100 mg PO DAILY 10/24/20 12/30/21 Unknown History zolpidem 5 mg tablet (Ambien) 5 mg PO BEDTIME PRN 10/24/20 12/30/21 Unknown History fluticasone propionate 110 2 puff INHALATION BID 05/15/21 12/30/21 Unknown History mcg/actuation HFA aerosol inhaler (Flovent HFA) fluticasone propionate 50 1 spray INTRANASAL DAILY 05/15/21 12/30/21 Unknown History mcg/actuation nasal spray,suspension (Flonase Allergy Relief) gabapentin 300 mg capsule 300 mg PO BID 05/15/21 12/30/21 Unknown History Exam Exam Date and Time: January 06, 2022 1138 Height,Weight and Vital Signs: Height 5 ft 3 in Weight 80.399 kg Last Vital Signs Temp 97.9 F 01/06/22 11:25 Pulse 77 01/06/22 11:25 Resp 18 01/06/22 11:25 BP 113/68 01/06/22 11:25 Pulse Ox 100 01/06/22 11:25 Pertinent Lab Results Pertinent Lab Results: Laboratory Tests 01/06/22 11:11 Urine Test NEGATIVE Airway Mallampati Class: II TM Dist: >3cm Neck ROM: Full Loose/Missing/Broken Teeth: No Heart: [id number] Lungs: cta b/l Assessment and Plan Assessment Anesthesia Assessment: Anesthesia Plan Discussed and Chart Reviewed Final Anesthetic Review Family History of Problems with Anesthesia: No History of Problems with Anesthesia: No NPO: Yes ASA Class: III Final Preanesthetic Review: No Changes in Pt Med Stat, Meds/Allgs Chart Reviewed, Consent Obtained/Reviewed and Anes Risks/Benef Reviewed Patient Risk: Intermediate Procedure Risk: Low Assessment/Block/Sedation in SS: Assess/Block/Sedation-SS Anesthetic Plan Anesthetic Plan: MAC: and Agree w/ Assess. and Plan Disposition: Standard PACU
--- NOTE | 2022-01-06 13:15 | HO.PNOPHT ---
Ophthalmology Procedure Procedure Date of Service: 01/06/22 Ophthalmology Viscoelastic: Not Applicable Ophthalmology Lenses: Not Applicable
[2022-01-06 14:54] VITALS: BP 118/70; PULSE 81; RESP 16; TEMP 36.6; O2SAT 100
[2022-01-06 15:09] VITALS: BP 109/68; PULSE 79; RESP 16; O2SAT 100
[2022-01-06] MEDS: Acetaminophen 325 MG TABLET 650 MG PO (15:20)
[2022-01-06 15:23] VITALS: BP 106/61; PULSE 70; RESP 16; TEMP 36.6; O2SAT 99
--- NOTE | 2022-01-06 15:36 | OP_ITS ---
SURGEON: Chris Scott MD PREOPERATIVE DIAGNOSIS: POSTOPERATIVE DIAGNOSIS: Ptosis left upper lid. PROCEDURE PERFORMED: Levator resection. ESTIMATED BLOOD LOSS: COMPLICATIONS: ANESTHESIA: Monitored anesthesia care with local. ASSISTANTS: SPECIMENS: INDICATION FOR SURGERY: Ptosis left upper lid. DESCRIPTION OF PROCEDURE: After obtaining full consent, the patient was brought to the operating room suite, placed in supine position. After adequate sedation, local was instilled along the superior lid crease. An incision was then created utilizing Iraj scissors to dissect a pocket inferiorly down to the tarsus. Once the tarsus was identified, the levator was dissected off the tarsal plate. Double-armed suture of 5-0 Vicryl was placed through tarsus with a suture at each lateral and medial edge. Levator was bluntly dissected superiorly. The suture was passed through the levator and then sutured in place. The suture was positioned until adequate upper lid left was achieved. 6-0 plain was then utilized to close the skin incision. Erythromycin was then placed on the wound and the patient tolerated the procedure and will be seen in followup. MD DEVANG Santos/AYALA / [id number]
== END 2022-01-06 15:38 | disposition home or self-care (01) ==
PROVIDERS: Anesthesiology; PCP Internal Medicine; Visit Provider Ophthalmology
PROC: (CPT 67904; principal; 2022-01-06 13:00)
DX: H02.402 Unspecified ptosis of left eyelid (principal); G70.00 Myasthenia gravis without (acute) exacerbation; D64.9 Anemia, unspecified; K21.9 Gastro-esophageal reflux disease without esophagitis; J45.909 Unspecified asthma, uncomplicated; E66.8 Other obesity; Z68.30 Body mass index [BMI] 30.0-30.9, adult; Z79.51 Long term (current) use of inhaled steroids; Z79.899 Other long term (current) drug therapy; Z91.041 Radiographic dye allergy status; Z98.84 Bariatric surgery status
CPT/HCPCS: 67904; 81025; J2250; J2405; J3010

== ENCOUNTER 2022-01-20 11:36 | Outpatient (REF) | payer OTHER, SELFPAY ==
--- NOTE | ~2022-01-20 | US_ITS ---
EXAMINATION: US ABDOMEN COMPLETE WITH LIVER ELASTOGRAPHY CLINICAL INFORMATION: Right upper quadrant pain. COMPARISON: None. TECHNIQUE: Real-time imaging of the abdominal viscera. Noninvasive ultrasound liver fibrosis assessment is performed using Irving ElastPQ point quantification shear wave elastography (2D-SWE) with a C5-2 MHz transducer. Multiple elastography samples are obtained. FINDINGS: PANCREAS: Normal. The visualized pancreatic head and body are normal in appearance. The remainder of the pancreas is obscured from visualization by the overlying bowel gas. ABDOMINAL AORTA: The proximal and middle aortic segments are normal in caliber. The distal aortic segment is not seen. INFERIOR VENA CAVA: Visualized portions are normal. LIVER: Normal. The liver demonstrates normal size, contour and echogenicity. No focal lesion or intrahepatic biliary duct dilatation. The right lobe measures 16.9 cm in length. The left lobe measures 10.2 cm in length. Portal flow is hepatopedal. Shear wave liver elastography median stiffness is 1.48 m/s (reference: normal median stiffness is 1.3 m/s or less). IQR/median stiffness to assess sampling precision is 0.09 (reference: good quality data set is IQR/median stiffness of 0.15 or less). GALLBLADDER: There are multiple echogenic gallstones without any wall thickening. No pericholecystic fluid collection or tenderness seen in the right upper quadrant. COMMON BILE DUCT: Normal in caliber measuring 0.3 cm in diameter. RIGHT KIDNEY: Normal. No hydronephrosis. No renal calculi or focal parenchymal lesions. The kidney measures 10.8 cm in maximum dimension. LEFT KIDNEY: Normal. No hydronephrosis. No renal calculi or focal parenchymal lesions. The kidney measures 10.4 cm in maximum dimension. SPLEEN: Normal. The spleen measures 9.9 cm in maximum dimension. FREE FLUID: None. US/US abdomen comp w elastography IMPRESSION: 1. Cholelithiasis without wall thickening. 2. Hepatic steatosis without any focal lesion. 3. Rest of the abdominal ultrasound is unremarkable. 4. Liver elastography: Median liver stiffness 1.48 m/s suggestive of ACLD (ruled out). REFERENCE: Society of Radiologists in Ultrasound Liver Stiffness Thresholds (2020): LIVER STIFFNESS THRESHOLDS: *Liver Stiffness equal or less than 1.3 m/s: High probability of being normal. *Liver Stiffness less than 1.7 m/s: In the absence of other known clinical signs, rules out compensated advanced chronic liver disease. *Liver Stiffness 1.7-2.1 m/s: Suggestive of compensated advanced chronic liver disease but need further test for confirmation. *Liver Stiffness over 2.1 m/s: Rules in compensated advanced chronic liver disease. *Liver Stiffness over 2.4 m/s: Suggestive of clinically significant portal hypertension. QUALITY OF DATA SET: *IQR/Median value equal or less than 0.15 implies a quality data set. *IQR/Median value over 0.15 implies a poor quality data set. SIGNIFICANT CHANGE FROM PRIOR EXAM: Significant change if liver stiffness measurement is 10% or greater from prior exam. OTHER CONSIDERATIONS: The stage of liver fibrosis may be overestimated in the setting of acute hepatitis, liver inflammation, elevated liver function tests, hepatic vascular congestion, obstructive cholestasis, non-fasting state, and infiltrative diseases such as amyloidosis and lymphoma. In some patients with NAFLD, the liver stiffness thresholds for compensated advanced chronic liver disease may be lower. In causes other than viral hepatitis and NAFLD, liver stiffness thresholds are not well established.
== END 2022-01-20 11:37 | disposition home or self-care (01) ==
LOC: HO.US 11:36
PROVIDERS: PCP Internal Medicine; Visit Provider Physician Assistant
DX: R10.11 Right upper quadrant pain (principal); Z98.890 Other specified postprocedural states
CPT/HCPCS: 76705; 76981

== ENCOUNTER → 2022-02-10 10:33 | Outpatient (BNVA) | payer OTHER, SELFPAY | PROVIDERS: PCP Internal Medicine; Referring Provider Internal Medicine; Visit Provider Physician Assistant | DX: E66.9 Obesity, unspecified (principal); K80.20 Calculus of gallbladder without cholecystitis without obstruction; R10.11 Right upper quadrant pain; Z98.890 Other specified postprocedural states; Z68.30 Body mass index [BMI] 30.0-30.9, adult | CPT/HCPCS: 99212 ==

== ENCOUNTER → 2022-03-10 09:10 | Outpatient (BNVA) | payer OTHER, SELFPAY | PROVIDERS: PCP Internal Medicine; Referring Provider Internal Medicine; Visit Provider Surgery | DX: E66.9 Obesity, unspecified (principal); K80.20 Calculus of gallbladder without cholecystitis without obstruction; D50.8 Other iron deficiency anemias; R12 Heartburn; R10.11 Right upper quadrant pain; E04.2 Nontoxic multinodular goiter; G70.00 Myasthenia gravis without (acute) exacerbation; Z87.19 Personal history of other diseases of the digestive system; Z98.890 Other specified postprocedural states; Z68.30 Body mass index [BMI] 30.0-30.9, adult | CPT/HCPCS: 99202 ==

== ENCOUNTER 2022-03-12 09:49 | Day surgery (SDC) | payer OTHER, SELFPAY ==
--- NOTE | 2022-03-11 10:10 | HO.ANESPROP2 ---
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 pylori infection (Acute) Pre-op evaluation (Acute) History of gastric surgery (Acute) Back pain (Acute) Class 1 obesity with body mass index (BMI) of 30.0 to 30.9 in adult (Acute) Neck pain (Acute) Vitamin D deficiency (Acute) Multinodular thyroid (Acute) Ocular myasthenia gravis (Acute) Right hand pain (Acute) Umbilical hernia (Acute) Abdominal pain, LUQ (left upper quadrant) (Acute) Iron deficiency anemia (Chronic) Polyarthralgia (Acute) Acute hemorrhoid (Acute) Pre-syncope (Acute) Dizziness (Acute) Orthostatic hypotension (Acute) Past Medical History Medical History Abdominal pain, LUQ (left upper quadrant) Acute hemorrhoid Asthma Back pain Class 1 obesity with body mass index (BMI) of 30.0 to 30.9 in adult COVID-19 vaccine series completed Dizziness Iron deficiency anemia Multinodular thyroid Neck pain Ocular myasthenia gravis Orthostatic hypotension Polyarthralgia Pre-syncope Right hand pain Umbilical hernia Vitamin D deficiency Family History Family History Mother Hypertension Diabetes Father No problems noted. Paternal Uncle Breast cancer Family history of problems with anesthesia: No Surgical History Surgical History History of section History of esophagogastroduodenoscopy (EGD) History of gastric surgery History of thyroidectomy History of umbilical hernia repair (~07/02/21) Hx of eye surgery History of Problems with Anesthesia: No Social History Social History Housing: Apartment Are you a primary laboratory animal care veterinarian to a significant other at home: No Do you presently have visiting nurse or other home services: No Alcohol intake: never Patient Tobacco Use Status: Never used Tobacco e-Cigarette/Vaping Use: Never Used Second Hand Smoke Exposure: No Use of substances other than those prescribed or required for medical reasons: No Are you DNR?: No Advance Directives: No Advance Directives Information Provided: Yes service: No Current occupational status: unemployed Cognitive needs: No Hearing needs: No Vision needs: Yes (glasses) Meds Allergies Allergy/AdvReac Type Severity Reaction Status Date / Time Iodinated Contrast Media Allergy Intermediate DIFFICULTY Verified 03/12/22 10:53 [IV CONTRAST] BREATHING dextran sulfate AdvReac Mild Cough Verified 03/12/22 10:53 Home Medications Medication Instructions Recorded Confirmed Last Taken Type sodium chloride 1 gram tablet 1,000 mg PO DAILY 08/15/20 03/10/22 Unknown History cetirizine 10 mg tablet 10 mg PO DAILY 10/24/20 03/10/22 Unknown History diclofenac sodium 1 % topical gel 2 g TOPICAL BID-TID 10/24/20 03/10/22 Unknown History hydroxyzine HCl 25 mg tablet 25 mg PO BID PRN 10/24/20 03/10/22 Unknown History ketotifen fumarate 0.025 % (0.035 1 drp OPHTHALMIC (EYE) Q8H ml 10/24/20 03/10/22 Unknown History %) eye drops pyridostigmine bromide 60 mg 120 mg PO QID 10/24/20 03/10/22 07/02/21 History tablet (Mestinon) sertraline 100 mg tablet 100 mg PO DAILY 10/24/20 03/10/22 Unknown History zolpidem 5 mg tablet (Ambien) 5 mg PO BEDTIME PRN 10/24/20 03/10/22 Unknown History fluticasone propionate 110 2 puff INHALATION BID 05/15/21 03/10/22 Unknown History mcg/actuation HFA aerosol inhaler (Flovent HFA) fluticasone propionate 50 1 spray INTRANASAL DAILY 05/15/21 03/10/22 Unknown History mcg/actuation nasal spray,suspension (Flonase Allergy Relief) gabapentin 300 mg capsule 300 mg PO BID 05/15/21 03/10/22 Unknown History lidocaine 5 % topical patch 1 patch TOPICAL Q3D PRN 02/10/22 03/10/22 Unknown History baclofen 10 mg tablet 10 mg PO BID PRN 03/10/22 03/10/22 Unknown History topiramate 25 mg tablet 25 mg PO BID PRN 03/10/22 03/10/22 Unknown History venlafaxine 37.5 mg 37.5 mg PO DAILY 03/10/22 03/10/22 Unknown History capsule,extended release 24 hr Exam Exam Date and Time: March 11, 2022 1010 Pertinent Lab Results Pertinent Lab Results: Laboratory Tests 01/03/22 01/03/22 10:43 10:43 WBC 5.6 Hgb 11.8 L Hct 37.8 Plt Count 257 Sodium 138 Potassium 4.0 Chloride 105 Carbon Dioxide 28 BUN 11 Creatinine 0.66 Narrative Narrative: EKG 07/2021 sinus rhythm at 69/minute; no significant ST-T changes and otherwise unremarkable Assessment and Plan Assessment Anesthesia Assessment: Chart Reviewed Final Anesthetic Review Family History of Problems with Anesthesia: No History of Problems with Anesthesia: No Documented by User: Jami Devine MD 03/12/22 11:26 [facility] Past Medical History Medical History Abdominal pain, LUQ (left upper quadrant) Acute hemorrhoid Asthma Back pain Class 1 obesity with body mass index (BMI) of 30.0 to 30.9 in adult COVID-19 vaccine series completed Dizziness Iron deficiency anemia Multinodular thyroid Neck pain Ocular myasthenia gravis Orthostatic hypotension Polyarthralgia Pre-syncope Right hand pain Umbilical hernia Vitamin D deficiency Family History Family History Mother Hypertension Diabetes Father No problems noted. Paternal Uncle Breast cancer Surgical History Surgical History History of section History of esophagogastroduodenoscopy (EGD) History of gastric surgery History of thyroidectomy History of umbilical hernia repair (~07/02/21) Hx of eye surgery Social History Social History Housing: Apartment Are you a primary laboratory animal care veterinarian to a significant other at home: No Do you presently have visiting nurse or other home services: No Alcohol intake: never Patient Tobacco Use Status: Never used Tobacco e-Cigarette/Vaping Use: Never Used Second Hand Smoke Exposure: No Use of substances other than those prescribed or required for medical reasons: No Are you DNR?: No Advance Directives: No Advance Directives Information Provided: Yes service: No Current occupational status: unemployed Cognitive needs: No Hearing needs: No Vision needs: Yes (glasses) Meds Allergies Allergy/AdvReac Type Severity Reaction Status Date / Time Iodinated Contrast Media Allergy Intermediate DIFFICULTY Verified 03/12/22 10:53 [IV CONTRAST] BREATHING dextran sulfate AdvReac Mild Cough Verified 03/12/22 10:53 Home Medications Medication Instructions Recorded Confirmed Last Taken Type sodium chloride 1 gram tablet 1,000 mg PO DAILY 08/15/20 03/10/22 Unknown History cetirizine 10 mg tablet 10 mg PO DAILY 10/24/20 03/10/22 Unknown History diclofenac sodium 1 % topical gel 2 g TOPICAL BID-TID 10/24/20 03/10/22 Unknown History hydroxyzine HCl 25 mg tablet 25 mg PO BID PRN 10/24/20 03/10/22 Unknown History ketotifen fumarate 0.025 % (0.035 1 drp OPHTHALMIC (EYE) Q8H ml 10/24/20 03/10/22 Unknown History %) eye drops pyridostigmine bromide 60 mg 120 mg PO QID 10/24/20 03/10/22 07/02/21 History tablet (Mestinon) sertraline 100 mg tablet 100 mg PO DAILY 10/24/20 03/10/22 Unknown History zolpidem 5 mg tablet (Ambien) 5 mg PO BEDTIME PRN 10/24/20 03/10/22 Unknown History fluticasone propionate 110 2 puff INHALATION BID 05/15/21 03/10/22 Unknown History mcg/actuation HFA aerosol inhaler (Flovent HFA) fluticasone propionate 50 1 spray INTRANASAL DAILY 05/15/21 03/10/22 Unknown History mcg/actuation nasal spray,suspension (Flonase Allergy Relief) gabapentin 300 mg capsule 300 mg PO BID 05/15/21 03/10/22 Unknown History lidocaine 5 % topical patch 1 patch TOPICAL Q3D PRN 02/10/22 03/10/22 Unknown History baclofen 10 mg tablet 10 mg PO BID PRN 03/10/22 03/10/22 Unknown History topiramate 25 mg tablet 25 mg PO BID PRN 03/10/22 03/10/22 Unknown History venlafaxine 37.5 mg 37.5 mg PO DAILY 03/10/22 03/10/22 Unknown History capsule,extended release 24 hr Exam Airway Mallampati Class: II TM Dist: >3cm Neck ROM: Full Loose/Missing/Broken Teeth: No Heart: RRR Lungs: CTA Assessment and Plan Final Anesthetic Review NPO: Yes ASA Class: II Final Preanesthetic Review: Meds/Allgs Chart Reviewed, Consent Obtained/Reviewed and Anes Risks/Benef Reviewed Patient Risk: Low Procedure Risk: Intermediate Anesthetic Plan Anesthetic Plan: GA Disposition: Standard PACU
[2022-03-12] VITALS (13 sets, daily range): BP systolic 102–114; BP diastolic 60–69; PULSE 69–87; RESP 14–20; TEMP 36.6–36.8; O2SAT 97–100; BMI 29.2
[2022-03-12 11:05] LABS: UPreg QC Valid YES; Urine Pregnancy NEGATIVE (NEGATIVE)
[2022-03-12] MEDS: Heparin Sodium,Porcine 5,000 UNIT/ML VIAL 5000 UNIT SUBCUT (11:12)
[2022-03-12] MEDS: Lactated Ringers 1,000 ML 100 ML IVCONT (11:12)
--- NOTE | 2022-03-12 11:27 | MHC.SHP ---
Pre-Procedural Eval Section A Date of Service: 03/12/22 The patient is an INPATIENT: No The History & Physical has been completed within 30 days and I have reviewed it.: Yes Section B Chief Complaint: Calculus of bile duct without cholangitis or mary Allergies: Allergies Allergy/AdvReac Type Severity Reaction Status Date / Time Iodinated Contrast Media Allergy Intermediate DIFFICULTY Verified 03/12/22 10:53 [IV CONTRAST] BREATHING dextran sulfate AdvReac Mild Cough Verified 03/12/22 10:53 Plan I have reviewed the history and physical and performed a pertinent physical examination on my patient. No changes have occurred unless specified.
--- NOTE | 2022-03-12 11:28 | W.PM.OPN ---
Operative Note Operative Note Date of Service: 03/12/22 Narrative: PreOp Dx; Biliary colic Post-op Dx same Procedure: Laparoscopic cholecystectomy surgeon: Bal Montgomery MD executive administrative assistant: Martha Burgos PA-C Anesthesia: GET; local Marcaine 0.25% w/epi EBL: 3cc Specimen: GB & contents Drains: none Intraoperative finding: Adhesions from the omentum to the gallbladder. Cystic duct was approximately 3 to 4 mm. Cystic artery was short and off a replaced right hepatic near the neck of the gallbladder. A well-healed sleeve gastrectomy was also examined at laparoscopy Indications: The patient is a 37-year-old woman status post sleeve gastrectomy with findings of right upper quadrant pain, worse after eating and ultrasound that showed GROVER & cholelithiasis. Options were discussed at length. I recommended proceeding with a laparoscopic cholecystectomy and reviewed the inherent risks of bleeding, infection, need for open surgery, the unlikely but possible risks of bile leak or retained common duct stones that could require ERCP. Lastly, the inherent risk of common bile duct injury that could require more extensive operation another institution was also discussed. Patient seemed understand her options with the help of the customs opener verifier packer, and wanted to proceed. Procedure: The patient was identified by myself in preoperative holding and again in the operating room. She voided her urinary bladder paleontological helper, sequential compression stockings were in place, she received antibiotics per protocol, and subcu heparin had been administered. Next, she was induced in general endotracheal anesthesia administered with excellent effect. An appropriate time-out was then performed. Her abdomen was widely prepped and draped in the usual manner for surgery. Given her prior umbilical hernia repair, the abdomen was accessed through the left subcostal approach. A skin wheal was raised, stab incision was made and the Veress needle inserted without incident. A pneumoperitoneum of 15 mmHg was obtained using carbon dioxide. Opening pressures were 6 mmHg. After the abdomen was inflated to 15 mmHg, a skin wheal was raised on the patient's right lateral abdomen in the anterior axillary line at the level of the umbilicus. Additional local was infiltrated and a stab incision made and the abdomen accessed using Optiview trocar technique. Upon entering the abdomen, the Veress needle was identified and no injury related to it was seen. The needle was removed and a 10 mm umbilical trocar placed under direct laparoscopic vision using preemptive analgesia. A 5 mm epigastric and 5 mm subcostal trocar was then placed using preemptive local and direct laparoscopic vision. The patient was then positioned in reverse Trendelenburg, banked left, and the gallbladder grasped by the fundus. Gallbladder was retracted anteriorly and cranially. Adhesions from the surrounding tissue to the neck of the gallbladder were noted and carefully dissected. The patient was noted to have a replaced right hepatic and short cystic artery. Careful dissection using the [place] dissector and hook demonstrated a critical view and a cystic duct that was a proximal 3-4 mm in size and a short cystic artery that was identified on the wall of the gallbladder. These structures were double clipped proximally, once distally and then sharply divided. Electrocautery was used with a hook to remove the gallbladder from the fossa of the liver. It was then placed in an Endo-Catch bag and delivered through the umbilical port under direct laparoscopic vision without incident. The operative field was inspected for hemostasis which was good. Laparoscopy looking in the left upper quadrant identified a very nice sleeve and no evidence of complication. The abdomen was deflated and the operative field again inspected for hemostasis which was good. The abdomen was completely deflated the trocars removed and the fascia at the umbilical trocar closed with 0 Vicryl suture. Skin was closed with 4-0 Monocryl in subcuticular manner, Mastisol and Steri-Strips applied followed by Band-Aids. Patient tolerated the procedure well and was sent to the recovery in stable condition, all sponge instrument counts were correct x2. At the patient's request, I contacted her family at [phone] and spoke with the patient's daughter. Instructions were reviewed in their questions seemed to be satisfactorily answered.
[2022-03-12] MEDS: ondansetron HCL 4 MG/2 ML VIAL IVPUSH (13:51)
[2022-03-12] MEDS: oxyCODONE HCl Immed Release 5 MG TABLET PO (13:52)
[2022-03-12] MEDS: fentaNYL citrate/PF 100 MCG/2 ML VIAL 50 MCG IVPUSH (13:54)
== END 2022-03-12 16:42 | disposition home or self-care (01) ==
PROVIDERS: Nurse Practitioner; PCP Internal Medicine; Visit Provider Surgery
PROC: 0FT44ZZ Resection of Gallbladder, Percutaneous Endoscopic Approach (ICD-10-PCS; CPT 47562; principal; 2022-03-12 12:10)
DX: K80.10 Calculus of gallbladder with chronic cholecystitis without obstruction (principal); K82.8 Other specified diseases of gallbladder; K75.81 Nonalcoholic steatohepatitis (NASH); J45.909 Unspecified asthma, uncomplicated; I95.1 Orthostatic hypotension; G70.00 Myasthenia gravis without (acute) exacerbation; D50.8 Other iron deficiency anemias; E55.9 Vitamin D deficiency, unspecified; E04.2 Nontoxic multinodular goiter; E66.9 Obesity, unspecified; Z68.30 Body mass index [BMI] 30.0-30.9, adult; Z79.51 Long term (current) use of inhaled steroids; Z79.899 Other long term (current) drug therapy; Z91.041 Radiographic dye allergy status; Z98.890 Other specified postprocedural states
CPT/HCPCS: 47562; 81025; 88304; J1100; J1885; J2250; J2405; J3010

== ENCOUNTER → 2022-03-20 10:00 | Outpatient (BNVA) | payer OTHER, SELFPAY | PROVIDERS: Referring Provider Internal Medicine; Visit Provider Surgery | DX: Z48.815 Encounter for surgical aftercare following surgery on the digestive system (principal); Z90.49 Acquired absence of other specified parts of digestive tract | CPT/HCPCS: 99211; 99212 ==

== ENCOUNTER → 2022-04-07 08:32 | Outpatient (BNVA) | payer OTHER, SELFPAY | PROVIDERS: Visit Provider Physician Assistant | DX: E66.3 Overweight (principal); Z98.890 Other specified postprocedural states; Z68.29 Body mass index [BMI] 29.0-29.9, adult | CPT/HCPCS: 99212 ==

== ENCOUNTER 2022-07-03 12:34 | Outpatient (REF) | payer OTHER, SELFPAY ==
[2022-07-03 14:14] LABS: Free T4 (Free Thyroxine) 0.93 ng/dL (0.71-1.85); Vitamin D 25-OH Total 13.1 ng/mL (>30)
== END 2022-07-03 12:35 | disposition home or self-care (01) ==
LOC: HO.LAB 12:34
PROVIDERS: PCP Internal Medicine; Visit Provider Internal Medicine
DX: E04.2 Nontoxic multinodular goiter (principal); E55.9 Vitamin D deficiency, unspecified
CPT/HCPCS: 36415; 82306; 84439; 84443

== ENCOUNTER 2022-07-10 08:00 | Outpatient (REF) | payer OTHER, SELFPAY ==
--- NOTE | ~2022-07-10 | US_ITS ---
EXAMINATION: US THYROID CLINICAL INFORMATION: Nontoxic multinodular goiter. COMPARISON: Thyroid ultrasound 05/23/2021 and 09/13/2019. Ultrasound-guided thyroid biopsy 11/22/2019. TECHNIQUE: Linear transducer grayscale and color Doppler examination with attention to the region of the thyroid. FINDINGS: SIZE: Measurements of the thyroid lobes and nodules are given in sagittal, anteroposterior and transverse dimensions respectively. Right Thyroid Lobe: 5.2 x 2.1 x 2.1 cm, volume 12.0 mL. Previously 5.6 x 1.8 x 1.9 cm, volume 10.0 mL. Parenchyma: The gland echotexture is homogeneous. Thyroid vascularity is normal. Left Thyroid Lobe: 5.3 x 1.7 x 1.8 cm, volume 8.5 mL. Previously 5.7 x 2.0 x 2.0 cm, volume 11.9 mL. Parenchyma: The gland echotexture is homogeneous. Thyroid vascularity is increased. Isthmus: 0.5 cm in maximum AP dimension. Previously 0.4 cm. Estimated total number of nodules greater than or equal to 1 cm: 0. Construction Stonemason nodules are described as follows: 1. Location: Right mid/lateral. Size: 0.5 x 0.3 x 0.4 cm, volume 0.04 mL. Previously: 0.5 x 0.3 x 0.5 cm, volume 0.04 mL. Nodule characteristics: Composition: Solid (2). Echogenicity: Hyperechoic (1). Shape: Not taller than wide (0). Margins: Ill-defined (0). Echogenic Foci: None (0). ACR TI-RADS total points: 3 Previous: 3 ACR TI-RADS category: 3 Previous: 3 Significant change in size (>/= 20% in 2 dimensions and minimal increase of 2 mm or 50% or greater increase in volume): None Change in features: None Change in ACR TI-RADS risk category: None 2. Location: Left mid pole. Size: 0.5 x 0.3 x 0.5 cm, volume 0.05 mL. Previously: 0.6 x 0.4 x 0.5 cm, volume 0.06 mL. Nodule characteristics: Composition: Solid (2). Echogenicity: Hyperechoic (1). Shape: Not taller than wide (0). Margins: Ill-defined (0). Echogenic Foci: None (0). ACR TI-RADS total points: 3 Previous: 3 ACR TI-RADS category: 3 Previous: 3 Significant change in size (>/= 20% in 2 dimensions and minimal increase of 2 mm or 50% or greater increase in volume): None Change in features: None Change in ACR TI-RADS risk category: None NODES: No lymphadenopathy is seen in the tissue surrounding the thyroid gland. US/US thyroid IMPRESSION: Minimally enlarged right thyroid lobe. 2 nodules in each lobe are stable. Recommend continued follow-up. ACR TI-RADS RECOMMENDATION REFERENCE: Ultrasound-guided fine-needle aspiration, followup ultrasound, no further follow up. * TR1 (0 point) and TR 2 (2 points): No FNA or follow up * TR3 (3 points): FNA if more than or equal to 2.5 cm in maximum dimension, followup ultrasound in 1, 3 and 5 years if 1.5 to 2.4 cm in maximum dimension. * TR4 (4-6 points): FNA if more than or equal to 1.5 cm in maximum dimension, followup ultrasound in 1, 2, 3 and 5 years if 1 to 1.4 cm in maximum dimension. * TR5 (more than or equal to 7 points): FNA if more than or equal to 1 cm in maximum dimension, followup ultrasound every year for 5 years if 0.5 to 0.9 cm in maximum dimension. * TR3, TR4 or TR5 nodules that are below the size threshold for follow up receive no follow up.
== END 2022-07-10 08:01 | disposition home or self-care (01) ==
LOC: HO.US 08:00
PROVIDERS: Visit Provider Internal Medicine
DX: E04.2 Nontoxic multinodular goiter (principal)
CPT/HCPCS: 76536

== ENCOUNTER → 2022-07-14 08:34 | Outpatient (BNVA) | payer OTHER, SELFPAY | PROVIDERS: PCP Internal Medicine; Visit Provider Internal Medicine | DX: E04.2 Nontoxic multinodular goiter (principal); E55.9 Vitamin D deficiency, unspecified | CPT/HCPCS: 99212 ==

== ENCOUNTER 2022-07-28 12:12 | Outpatient (REF) | payer OTHER, SELFPAY ==
[2022-07-28 12:28] LABS: MANUAL DIFF FLAG NO
[2022-07-28 12:41] LABS: Basophils Percent Auto 0.7 % (0-2); Eosinophils Absolute Auto 0.3 X10*3/uL (0.0-0.4); Eosinophils Percent Auto 5.6 % (0-4); Hematocrit 35.8 % (37.0-47.0); Hemoglobin 11.2 g/dl (12.0-16.0); Imm Gran Abs Auto 0.03 X10*3/uL (0.00-0.03); Imm Gran Pct Auto 0.5 % (0.0-0.4); Lymphocytes Absolute Auto 2.1 X10*3/uL (1.2-4.9); Lymphocytes Percent Auto 37.4 % (20-40); Mean Corpuscular HGB Conc 31.3 g/dl (31.0-35.0); Mean Corpuscular Hemoglobin 23.6 pg (27.0-33.0); Mean Corpuscular Volume 75.5 fL (80.0-98.0); Mean Platelet Volume 9.4 fL (9.4-12.3); Monocytes Absolute Auto 0.5 X10*3/uL (0.1-1.2); Monocytes Percent Auto 9.2 % (2-11); Neutrophils Absolute Auto 2.6 x10*3/uL (2.0-8.3); Neutrophils Percent Auto 46.6 % (45-73); Platelet Count 267 X10*3/uL (160-400); Red Blood Count 4.74 X10*6/uL (4.20-5.50); Red Cell Distribution Width 15.4 % (11.0-16.0); White Blood Count 5.6 X10*3/uL (4.8-10.8)
[2022-07-28 13:17] LABS: Alanine Aminotransferase 15 U/L (0-31); Albumin Level 4.2 g/dL (3.5-5.0); Alkaline Phosphatase 79 U/L (39-117); Anion Gap 14 (12-20); Aspartate Amino Transferase 17 U/L (5-31); Bilirubin Total 0.5 mg/dL (0.0-1.0); Blood Urea Nitrogen 11 mg/dL (9-16); Calcium 9.3 mg/dL (8.4-10.2); Carbon Dioxide 24 mmol/L (22-29); Chloride 107 mmol/L (96-108); Cholesterol 194 mg/dL; Estimated Glomerular Filt Rate > 60; Glucose Fasting 89 mg/dL (60-99); HDL Cholesterol 53 mg/dL; Iron 48 mcg/dL (30-160); LDL Cholesterol Calculated 129 mg/dl; Percent Iron Saturation 12 % (15-50); Potassium 4.1 mmol/L (3.3-5.1); Sodium 141 mmol/L (135-145); Total Iron Binding Capacity 412 mcg/dL (228-428); Total Protein 7.1 g/dL (6.5-8.0); Triglycerides 62 mg/dL; Unsaturated Iron Binding 364 ug/dL
[2022-07-28 13:37] LABS: Vitamin D 25-OH Total 15.7 ng/mL (>30)
== END 2022-07-28 12:13 | disposition home or self-care (01) ==
LOC: HO.LAB 12:12
PROVIDERS: PCP Internal Medicine; Visit Provider Internal Medicine
DX: Z00.00 Encounter for general adult medical examination without abnormal findings (principal); E55.9 Vitamin D deficiency, unspecified; D64.9 Anemia, unspecified
CPT/HCPCS: 36415; 80053; 80061; 82306; 83540; 85025

== ENCOUNTER → 2022-08-20 11:19 | Outpatient (BNVA) | payer OTHER, SELFPAY | PROVIDERS: PCP Internal Medicine; Referring Provider Internal Medicine; Visit Provider Physician Assistant Surgical | DX: E66.9 Obesity, unspecified (principal); Z98.890 Other specified postprocedural states; Z68.30 Body mass index [BMI] 30.0-30.9, adult | CPT/HCPCS: 99212 ==

== ENCOUNTER → 2022-09-11 12:48 | Outpatient (BNVA) | payer OTHER, SELFPAY | PROVIDERS: PCP Internal Medicine; Referring Provider Internal Medicine; Visit Provider Internal Medicine | DX: I95.1 Orthostatic hypotension (principal) | CPT/HCPCS: 93005; 99212 ==

== ENCOUNTER 2022-11-14 11:33 | Outpatient (REF) | payer OTHER, SELFPAY ==
[2022-11-14 12:27] LABS: MANUAL DIFF FLAG NO
[2022-11-14 12:54] LABS: Basophils Absolute Auto 0.1 X10*3/uL (0.0-0.2); Basophils Percent Auto 0.9 % (0-2); Eosinophils Absolute Auto 0.1 X10*3/uL (0.0-0.4); Eosinophils Percent Auto 1.7 % (0-4); Hematocrit 36.4 % (37.0-47.0); Hemoglobin 10.9 g/dl (12.0-16.0); Imm Gran Abs Auto 0.03 X10*3/uL (0.00-0.03); Imm Gran Pct Auto 0.6 % (0.0-0.4); Lymphocytes Absolute Auto 1.2 X10*3/uL (1.2-4.9); Lymphocytes Percent Auto 22.9 % (20-40); Mean Corpuscular HGB Conc 29.9 g/dl (31.0-35.0); Mean Corpuscular Hemoglobin 22.3 pg (27.0-33.0); Mean Corpuscular Volume 74.4 fL (80.0-98.0); Mean Platelet Volume 9.3 fL (9.4-12.3); Monocytes Absolute Auto 0.4 X10*3/uL (0.1-1.2); Monocytes Percent Auto 6.6 % (2-11); Neutrophils Absolute Auto 3.7 x10*3/uL (2.0-8.3); Neutrophils Percent Auto 67.3 % (45-73); Platelet Count 249 X10*3/uL (160-400); Red Blood Count 4.89 X10*6/uL (4.20-5.50); Red Cell Distribution Width 15.3 % (11.0-16.0); White Blood Count 5.4 X10*3/uL (4.8-10.8)
[2022-11-14 13:00] LABS: Estimated Average Glucose 94 mg/dL; Hemoglobin A1c % 4.9 %
[2022-11-14 13:18] LABS: Alanine Aminotransferase 9 U/L (0-31); Albumin Level 3.9 g/dL (3.5-5.0); Alkaline Phosphatase 68 U/L (39-117); Anion Gap 11 (12-20); Aspartate Amino Transferase 14 U/L (5-31); Bilirubin Total 0.8 mg/dL (0.0-1.0); Blood Urea Nitrogen 11 mg/dL (9-16); C Reactive Protein 0.22 mg/dL (< or = 0.50); Calcium 8.9 mg/dL (8.4-10.2); Carbon Dioxide 25 mmol/L (22-29); Chloride 107 mmol/L (96-108); Cholesterol 179 mg/dL; Estimated Glomerular Filt Rate > 60; Glucose Random 83 mg/dL (60-115); HDL Cholesterol 54 mg/dL; Iron 42 mcg/dL (30-160); LDL Cholesterol Calculated 105 mg/dl; Percent Iron Saturation 11 % (15-50); Sodium 139 mmol/L (135-145); Total Iron Binding Capacity 398 mcg/dL (228-428); Total Protein 6.9 g/dL (6.5-8.0); Triglycerides 103 mg/dL; Unsaturated Iron Binding 356 ug/dL
[2022-11-14 13:35] LABS: Ferritin 5 ng/mL (10-122); Insulin 4 uU/mL (2-29); TSH reflex Free T4 0.28 uIU/mL (0.32-4.0); Vitamin D 25-OH Total 15.7 ng/mL (>30)
[2022-11-14 13:47] LABS: Folate 15.6 ng/mL (> or = 4.0); Vitamin B12 244 pg/mL (200-900)
[2022-11-14 15:29] LABS: Free T4 (Free Thyroxine) 1.03 ng/dL (0.71-1.85)
[2022-11-17 18:04] LABS: Calcium (PTHI) 8.8 mg/dL (8.6-10.2); PTHI 52 pg/mL (16-77)
[2022-11-18 15:17] LABS: Zinc 70 mcg/dL (60-130)
[2022-11-19 18:13] LABS: Vitamin A 32 mcg/dL (38-98)
[2022-11-19 18:18] LABS: Vitamin B1 10 nmol/L (8-30)
== END 2022-11-14 11:34 | disposition home or self-care (01) ==
LOC: HO.LAB 11:33
PROVIDERS: PCP Internal Medicine; Visit Provider Physician Assistant Surgical
DX: E66.9 Obesity, unspecified (principal); Z68.30 Body mass index [BMI] 30.0-30.9, adult; Z79.899 Other long term (current) drug therapy
CPT/HCPCS: 36415; 80053; 80061; 82306; 82607; 82728; 82746; 83036; 83525; 83540; 83970; 84425; 84439; 84443; 84590; 84630; 85025; 86140; 99212

== ENCOUNTER 2022-12-15 11:49 | Outpatient (REF) | payer OTHER, SELFPAY ==
[2022-12-15 13:23] LABS: Thyroid Stimulating Hormone 0.41 uIU/mL (0.32-4.0)
== END 2022-12-15 11:50 | disposition home or self-care (01) ==
LOC: HO.LAB 11:49
PROVIDERS: PCP Internal Medicine; Visit Provider Internal Medicine
DX: E04.2 Nontoxic multinodular goiter (principal)
CPT/HCPCS: 36415; 84443

== ENCOUNTER → 2022-12-30 14:39 | Outpatient (BNVA) | payer OTHER, SELFPAY | PROVIDERS: PCP Internal Medicine; Visit Provider Internal Medicine | DX: G70.00 Myasthenia gravis without (acute) exacerbation (principal); J45.909 Unspecified asthma, uncomplicated | CPT/HCPCS: 99202 ==

== ENCOUNTER 2023-01-19 10:59 | Outpatient (REF) | payer OTHER, SELFPAY ==
--- NOTE | 2023-01-19 13:41 | PFT_ITS ---
INDICATION: Asthma. SPIROMETRY: FEV1 to FVC 88% with an FEV1 of 2.62 L, which is 89% predicted, and FVC of 2.97 L, which is 82% predicted. No significant response to bronchodilators noted. Maximum voluntary ventilation 69% predicted. LUNG VOLUMES: Total lung capacity 87% predicted. DIFFUSION CAPACITY: DLCO 84% predicted. COMPARISON: None. INTERPRETATION: No obstructive nor restrictive ventilatory defects identified. No significant response to bronchodilators noted. There is a mild decrease in maximum voluntary ventilation secondary to likely deconditioning. Lung volumes are low normal, and diffusion capacity is within normal limits. If asthma is in the differential, a methacholine challenge may be helpful in assessing for hyperreactive airways. Otherwise, clinical correlation warranted. MD FITO Arguello/MODL / [id number]
== END 2023-01-19 11:00 | disposition home or self-care (01) ==
LOC: HO.RESP 10:59
PROVIDERS: PCP Internal Medicine; Visit Provider Internal Medicine
DX: G70.00 Myasthenia gravis without (acute) exacerbation (principal); J45.909 Unspecified asthma, uncomplicated
CPT/HCPCS: 94060; 94727; 94729

== ENCOUNTER → 2023-02-03 09:22 | Outpatient (BNVA) | payer OTHER, SELFPAY | PROVIDERS: PCP Internal Medicine; Visit Provider Physician Assistant Surgical | DX: E66.3 Overweight (principal); Z68.29 Body mass index [BMI] 29.0-29.9, adult; Z90.3 Acquired absence of stomach [part of]; Z90.49 Acquired absence of other specified parts of digestive tract | CPT/HCPCS: 99212 ==

== ENCOUNTER 2023-03-24 11:13 | Outpatient (REF) | payer OTHER, SELFPAY ==
[2023-03-24 14:22] LABS: C Reactive Protein 0.25 mg/dL (< or = 0.50); Rheumatoid Factor 19.6 IU/mL (<15.0)
[2023-03-24 15:05] LABS: Erythrocyte Sedimentation Rate 14 MM/HR (0-20)
== END 2023-03-24 11:14 | disposition home or self-care (01) ==
LOC: HO.LAB 11:13
PROVIDERS: PCP Internal Medicine; Referring Provider Physical Medicine & Rehabilitation; Visit Provider Internal Medicine
DX: M79.10 Myalgia, unspecified site (principal); J45.909 Unspecified asthma, uncomplicated; Z79.899 Other long term (current) drug therapy
CPT/HCPCS: 36415; 85652; 86140; 86431; 99212

== ENCOUNTER 2023-04-03 12:35 | Outpatient (REF) | payer OTHER, SELFPAY ==
[2023-04-03 12:58] LABS: MANUAL DIFF FLAG NO
[2023-04-03 13:17] LABS: Basophils Absolute Auto 0.1 X10*3/uL (0.0-0.2); Basophils Percent Auto 0.9 % (0-2); Eosinophils Absolute Auto 0.2 X10*3/uL (0.0-0.4); Eosinophils Percent Auto 3.3 % (0-4); Hematocrit 35.8 % (37.0-47.0); Hemoglobin 10.9 g/dl (12.0-16.0); Imm Gran Abs Auto 0.02 X10*3/uL (0.00-0.03); Imm Gran Pct Auto 0.4 % (0.0-0.4); Lymphocytes Absolute Auto 1.9 X10*3/uL (1.2-4.9); Lymphocytes Percent Auto 34.8 % (20-40); Mean Corpuscular HGB Conc 30.4 g/dl (31.0-35.0); Mean Corpuscular Hemoglobin 23.4 pg (27.0-33.0); Mean Platelet Volume 8.9 fL (9.4-12.3); Monocytes Absolute Auto 0.5 X10*3/uL (0.1-1.2); Monocytes Percent Auto 9.6 % (2-11); Neutrophils Absolute Auto 2.8 x10*3/uL (2.0-8.3); Platelet Count 302 X10*3/uL (160-400); Red Blood Count 4.65 X10*6/uL (4.20-5.50); Red Cell Distribution Width 15.3 % (11.0-16.0); White Blood Count 5.5 X10*3/uL (4.8-10.8)
[2023-04-03 13:27] LABS: Estimated Average Glucose 103 mg/dL; Hemoglobin A1c % 5.2 %
[2023-04-03 13:54] LABS: Alanine Aminotransferase 13 U/L (0-31); Albumin Level 3.9 g/dL (3.5-5.0); Alkaline Phosphatase 80 U/L (39-117); Anion Gap 9 (12-20); Aspartate Amino Transferase 15 U/L (5-31); Blood Urea Nitrogen 10 mg/dL (9-16); Calcium 9.2 mg/dL (8.4-10.2); Carbon Dioxide 27 mmol/L (22-29); Chloride 107 mmol/L (96-108); Estimated Glomerular Filt Rate > 60; Glucose Random 88 mg/dL (60-115); Potassium 4.3 mmol/L (3.3-5.1); Sodium 139 mmol/L (135-145); Total Protein 6.6 g/dL (6.5-8.0)
[2023-04-03 14:25] LABS: Folate 17.1 ng/mL (> or = 4.0); TSH reflex Free T4 0.22 uIU/mL (0.32-4.0); Vitamin B12 283 pg/mL (200-900); Vitamin D 25-OH Total 29.6 ng/mL (>30)
[2023-04-03 15:37] LABS: Free T4 (Free Thyroxine) 1.02 ng/dL (0.71-1.85)
== END 2023-04-03 12:36 | disposition home or self-care (01) ==
LOC: HO.LAB 12:35
PROVIDERS: PCP Nurse Practitioner Family; Visit Provider Nurse Practitioner Family
DX: E66.9 Obesity, unspecified (principal)
CPT/HCPCS: 36415; 80053; 82306; 82607; 82746; 83036; 84439; 84443; 85025

== ENCOUNTER 2023-07-08 21:28 | Emergency (ER) | payer OTHER, SELFPAY ==
--- NOTE | ~2023-07-08 | XR_ITS ---
EXAMINATION: XR LUMBOSACRAL SPINE CLINICAL INFORMATION: Pain status-post fall. COMPARISON: None available. TECHNIQUE: AP and lateral views of the lumbar spine and lateral view of the lumbosacral junction. FINDINGS: The vertebral bodies and posterior elements are normal. The disc spaces are preserved and the vertebral alignment is normal. There is mild thoracolumbar spondylosis. There are multiple abdominal surgical clips. The paraspinal soft tissues are normal. An intrauterine device is noted. XR/XR lumbar spine 2-3V IMPRESSION: 1. No acute fracture or spondylolisthesis is seen. 2. The thoracolumbar disc spaces are well-maintained. 3. There is mild thoracolumbar spondylosis.
[2023-07-08 22:08] VITALS: BP 107/62; PULSE 83; RESP 16; TEMP 37.7; O2SAT 97; BMI 29.8
[2023-07-09] VITALS: BP 98/58; PULSE 75; RESP 18; TEMP 36.8; O2SAT 99
[2023-07-09 02:00] VITALS: BP 118/60; PULSE 85; RESP 18; TEMP 37.1; O2SAT 96
--- NOTE | 2023-07-09 03:07 | ED_ITS ---
HPI - Fall General Chief Complaint: Fall Stated Complaint: fell lower back pain Time Seen by Provider: 07/09/23 02:26 Source: patient Mode of arrival: ambulatory Limitations: no limitations History of Present Illness HPI Narrative: 38-year-old female with history of chronic back pain presented after she fell 4 steps of stairs landing on her back complaining of back pain, able to ambulate, no urine incontinence, no stool incontinence. No fever, no chills. Related Data Home Medications Medication Instructions Recorded Confirmed cetirizine 10 mg tablet 10 mg PO DAILY 10/24/20 04/02/23 diclofenac sodium 1 % topical gel 2 g topical BID-TID 10/24/20 04/02/23 hydroxyzine HCl 25 mg tablet 25 mg PO BID PRN anxiety 10/24/20 04/02/23 ketotifen fumarate 0.025 % (0.035 1 drp ophthalmic (eye) Q8H 10/24/20 04/02/23 %) eye drops sertraline 100 mg tablet 100 mg PO DAILY 10/24/20 04/02/23 zolpidem 5 mg tablet (Ambien) 5 mg PO BEDTIME PRN Insomnia 10/24/20 04/02/23 fluticasone propionate 50 1 spray intranasal DAILY 05/15/21 04/02/23 mcg/actuation nasal spray,suspension (Flonase Allergy Relief) gabapentin 300 mg capsule 300 mg PO BID 05/15/21 04/02/23 lidocaine 5 % topical patch 1 patch topical Q3D PRN Back Pain 02/10/22 04/02/23 baclofen 10 mg tablet 10 mg PO BID PRN Back Pain 03/10/22 04/02/23 topiramate 25 mg tablet 25 mg PO BID PRN Headache 03/10/22 04/02/23 venlafaxine 37.5 mg 37.5 mg PO DAILY 03/10/22 04/02/23 capsule,extended release 24 hr Previous Rx's Medication Instructions Recorded cyclobenzaprine 10 mg tablet 10 mg PO TID PRN muscle spasm #10 10/31/21 tabs meclizine 25 mg tablet 25 mg PO TID PRN dizziness 30 days 09/06/22 #90 tabs cholecalciferol (vitamin D3) 125 125 mcg PO DAILY #90 caps 11/24/22 mcg (5,000 unit) capsule iron,carbonyl 65 mg-vitamin C 125 1 tab PO BEDTIME #90 tabs 11/24/22 mg tablet,delayed release (Vitron-C) vitamin A palmitate 3,000 mcg 10,000 unit PO DAILY #90 caps 11/24/22 (10,000 unit) capsule midodrine 10 mg tablet 10 mg PO TID #90 tabs 12/15/22 Ventolin HFA 90 mcg/actuation 2 puff inhalation Q4-6H PRN for 03/09/23 aerosol inhaler (albuterol sulfate) wheezing #18 ea semaglutide (weight loss) 0.25 0.25 mg (0.5 mL) subcut QWEEK #2 mL 04/14/23 mg/0.5 mL subcutaneous pen injector (Wegovy) fluticasone propionate 110 2 puff PO BID for asthma #12 ea 05/18/23 mcg/actuation HFA aerosol inhaler (Flovent HFA) oxycodone 5 mg tablet 5 mg PO BID PRN pain #20 tabs 07/09/23 Allergies Allergy/AdvReac Type Severity Reaction Status Date / Time Iodinated Contrast Media Allergy Intermediate DIFFICULTY Verified 07/08/23 22:10 [IV CONTRAST] BREATHING dextran sulfate AdvReac Mild Cough Verified 07/08/23 22:10 Review of Systems Review of Systems: All other systems are reviewed and are negative Constitutional: Reports as per HPI and Reports no additional constitutional complaints Eyes: Reports as per HPI and Reports no additional eye complaints Reports system reviewed and no additional complaints, except as documented Cardiovascular: Reports as per HPI and Reports no additional cardiovascular complaints Respiratory: Reports as per HPI and Reports no additional respiratory complaints Gastrointestinal: Reports as per HPI and Reports no additional gastrointestinal complaints Genitourinary: Reports no additional female genitourinary complaints Musculoskeletal: Reports no additional musculoskeletal complaints Skin/Breast: Reports system reviewed and no additional complaints, except as docu Psychiatric: Reports no additional psychiatric complaints Endocrine: Reports no additional endocrine complaints Hematologic/Lymphatic: Reports no additional hematologic/lymphatic complaints Allergic/Immunologic: Reports no additional allergic/immunologic complaints Reports system reviewed and no additional complaints, except as documented and Reports Abnormal speech present [facility] Past Medical History Medical History Abdominal pain, LUQ (left upper quadrant) Acute hemorrhoid Allergic rhinitis Asthma Back pain Class 1 obesity with body mass index (BMI) of 30.0 to 30.9 in adult COVID-19 vaccine series completed Dizziness Iron deficiency anemia Multinodular thyroid Neck pain Ocular myasthenia gravis Orthostatic hypotension Polyarthralgia Pre-syncope Right hand pain Umbilical hernia Vitamin D deficiency Surgical History History of section History of esophagogastroduodenoscopy (EGD) History of gastric surgery History of thyroidectomy History of umbilical hernia repair (~07/02/21) Hx of cholecystectomy Hx of eye surgery Family History Family History Mother Hypertension Diabetes Father No problems noted. Paternal Uncle Breast cancer Social History Social History Household Members: Significant Other and Children Housing: Apartment Are you a primary congregational care pastor to a significant other at home: No Do you presently have visiting nurse or other home services: No Alcohol intake: never Patient Tobacco Use Status: Never used Tobacco e-Cigarette/Vaping Use: Never Used Second Hand Smoke Exposure: No Advance Directives: No Advance Directives Information Provided: Yes service: No Current occupational status: unemployed Cognitive needs: No Hearing needs: No Vision needs: Yes (glasses) Physical Exam Vital Signs: Vital Signs: Last Vital Signs Temp 98.7 F 07/09/23 02:00 Pulse 85 07/09/23 02:00 Resp 18 07/09/23 02:00 BP 118/60 07/09/23 02:00 Pulse Ox 96 07/09/23 02:00 O2 Del Method Room Air 07/09/23 02:00 BMI result Body Mass Index 29.8 Vital signs have been reviewed as appeared to be correct. Blood pressure normal. Heart rate normal. Respiration rate normal. Temperature normal. Oxygen saturation normal. Appearance: Alert. Oriented X3. No acute distress. Head: Normal external exam. Normocephalic. Atraumatic. No Devine signs noted. No raccoon eyes noted Eyes: PERRLA. EOMI. Conjunctiva and sclera normal. Eyelids normal. ENT: TM's Normal. Pharynx normal. Uvula midline. Moist mucous membranes. No trismus noted. No drooling noted. No muffled voice noted. Neck: Normal inspection. Neck supple. FROM. No adenopathy. Thyroid Normal. No meningeal signs. No neck mass noted. CVS: Normal heart rate and rhythm. Heart sound normal. No murmurs noted. Pulses normal throughout. Respiratory: No respiratory distress. Painless inspiration. Breath sounds normal. No wheezes/rales/rhonchi noted. Chest nontender. No accessory muscle usage noted or decreased air movement noted. Abdomen: Soft and nontender. Bowel sounds normal in all 4 quadrants. No distention noted. No organomegaly noted. No visible injury noted. Back: No CVA tenderness. Full range of motion noted. Tenderness over the midline in the lower back with no step-off, no deformity. No ecchymosis. Skin: Skin warm and dry. Normal skin color. Normal skin turgor. No rashes/lesions/lacerations noted. Extremities: No lower extremity edema. Extremities exhibit normal range of motion. Extremities nontender. Neuro: Oriented X 3. Cranial nerve exam: II-XII are grossly intact No motor deficit. No sensory deficit. Reflexes normal. Course Course Course Narrative: 38-year-old female status post mechanical fall with back pain, patient feels better after 4 mg of morphine IM injection will discharge the patient on oxycodone and follow-up with PCP. Medications Administered Discontinued Medications Generic Name Dose Route Start Last Admin Trade Name Freq PRN Reason Stop Dose Admin Ibuprofen 600 mg 07/09/23 02:26 07/09/23 03:29 Ibuprofen 600 Mg Tablet PO 07/09/23 02:27 600 mg ONCE ONE Administration Medical Decision Making Differential Diagnosis Differential Diagnoses: The differential diagnosis associated with the presentation includes (Contusion of the back, lumbar spine fracture, back ecchymosis, hematoma) Admission/Observation Consideration of admission/observation: Escalation of care including admi ssion/observation considered Independent Historian Clinical information obtained from an independent historian. History obtained from or confirmed by: Other (Chronic back pain) Discharge Plan Discharge Clinical Impression: Back contusion Patient Disposition: Home, Self-Care Instructions: Contusion in Adults (ED) Prescriptions: New oxycodone 5 mg tablet 5 mg PO BID PRN (Reason: pain) Qty: 20 0RF Rx Instructions: Partial Fill upon patient request. No Action meclizine 25 mg tablet 25 mg PO TID PRN (Reason: dizziness) 30 Days Qty: 90 2RF cholecalciferol (vitamin D3) 125 mcg (5,000 unit) capsule 125 mcg PO DAILY Qty: 90 3RF vitamin A palmitate 10,000 unit capsule 10,000 unit PO DAILY Qty: 90 3RF Vitron-C 65 mg iron- 125 mg tablet,delayed release (DR/EC) 1 tab PO BEDTIME Qty: 90 3RF midodrine 10 mg tablet 10 mg PO TID Qty: 90 3RF albuterol sulfate [Ventolin HFA] 90 mcg/actuation HFA aerosol inhaler 2 puff inhalation Q4-6H PRN (Reason: for wheezing) Qty: 18 0RF Wegovy 0.25 mg/0.5 mL pen injector 0.25 mg subcut QWEEK Qty: 2 0RF Rx Instructions: administer weeks 1 through 4 of therapy fluticasone propionate [Flovent HFA] 110 mcg/actuation HFA aerosol inhaler 2 puff PO BID Qty: 12 3RF cyclobenzaprine 10 mg tablet 10 mg PO TID PRN (Reason: muscle spasm) Qty: 10 0RF zolpidem [Ambien] 5 mg tablet 5 mg PO BEDTIME PRN (Reason: Insomnia) sertraline 100 mg tablet 100 mg PO DAILY ketotifen fumarate 0.025 % (0.035 %) drops 1 drp ophthalmic (eye) Q8H cetirizine 10 mg tablet 10 mg PO DAILY diclofenac sodium 1 % gel 2 g topical BID-TID hydroxyzine HCl 25 mg tablet 25 mg PO BID PRN (Reason: anxiety) gabapentin 300 mg capsule 300 mg PO BID fluticasone propionate [Flonase Allergy Relief] 50 mcg/actuation spray,suspension 1 spray intranasal DAILY lidocaine 5 % adhesive patch,medicated 1 patch topical Q3D PRN (Reason: Back Pain) baclofen 10 mg tablet 10 mg PO BID PRN (Reason: Back Pain) topiramate 25 mg tablet 25 mg PO BID PRN (Reason: Headache) venlafaxine 37.5 mg capsule,extended release 24hr 37.5 mg PO DAILY Referrals: Lucia Quintanilla MD [Primary Care Provider] -
[2023-07-09] MEDS: Ibuprofen 600 MG TABLET PO (03:29)
[2023-07-09 03:49] VITALS: RESP 18
[2023-07-09] MEDS: Morphine Sulfate 4 MG/ML CARTRIDGE IM (03:49)
[2023-07-09 03:54] VITALS: BP 97/84; PULSE 76; RESP 18; TEMP 36.8; O2SAT 100
== END 2023-07-09 03:54 | disposition home or self-care (01) ==
PROVIDERS: Emergency Provider Emergency Medicine; PCP Internal Medicine
DX: S30.0XXA Contusion of lower back and pelvis, initial encounter (principal); W10.9XXA Fall (on) (from) unspecified stairs and steps, initial encounter; Y93.9 Activity, unspecified; Y92.9 Unspecified place or not applicable; Y99.9 Unspecified external cause status; Z79.899 Other long term (current) drug therapy
CPT/HCPCS: 72100; 96372; 99283; 99284; J2270

== ENCOUNTER 2023-07-28 11:41 | Outpatient (AMB) | payer OTHER, SELFPAY ==
--- NOTE | 2023-07-28 11:48 | MHC.OFFVISWM ---
Intake VS Expanded 07/28/23 11:51 Height 5 ft 3 in Weight 178 lb 9.6 oz BMI 31.6 Blood Pressure Location Lt brachial Blood Pressure Position Sitting Pulse 76 Pulse Source Pulse Oximeter Temp 98.7 F Temperature Source Temporal Artery Scan Pulse Oximetry 98 Oxygen Delivery Method Room Air Body Fat 63.2 Body Fat Percentage 35.4 Free Fat Mass 115.4 Muscle Mass 109.6 Visceral Mass 7.0 Water Mass 82.4 BMR 1,579 Intake Visit Reasons: (OV) PO LSG 06/29/18 Allergies Iodinated Contrast Media [IV CONTRAST] Allergy (Intermediate, Verified 07/28/23 11:50) DIFFICULTY BREATHING dextran sulfate Adverse Reaction (Mild, Verified 07/28/23 11:50) Cough Medication List - Last Reconciled 07/28/23 by CARTER Nuñez baclofen 10 mg PO BID PRN cetirizine 10 mg PO DAILY cholecalciferol (vitamin D3) 125 mcg PO DAILY cyclobenzaprine 10 mg PO TID PRN diclofenac sodium 1% 2 grams topical BID-TID fluticasone propionate 50 mcg/actuation (Flonase Allergy Relief) 1 spray intranasal DAILY fluticasone propionate 110 mcg/actuation (Flovent HFA) 2 puffs PO BID gabapentin 300 mg PO BID hydroxyzine HCl 25 mg PO BID PRN iron,carbonyl-vitamin C 65 mg iron- 125 mg (Vitron-C) 1 tab PO BEDTIME ketotifen fumarate 0.025%(0.035%) 1 drp ophthalmic (eye) Q8H lidocaine 5% 1 patch topical Q3D PRN meclizine 25 mg PO TID PRN 30 days midodrine 10 mg PO TID oxycodone 5 mg PO BID PRN semaglutide (weight loss) (Wegovy) 0.25 mg (0.5 mL) subcut QWEEK sertraline 100 mg PO DAILY topiramate 25 mg PO BID PRN venlafaxine ER 37.5 mg PO DAILY Ventolin HFA 90 mcg/actuation (albuterol sulfate) 2 puffs inhalation Q4-6H PRN NS vitamin A palmitate 10,000 units PO DAILY zolpidem (Ambien) 5 mg PO BEDTIME PRN HPI HPI Comments History of Present Illness Details This?is a?38?yo female who is s/p LSG 06/29/2018. Presents for 4 year post op visit. Weight at last visit on 02/03/2023 was 168.8 pounds with a BMI of 29.9, weight today is 178.6 pounds, representing a 9.8 pound weight gain with a BMI today of 31.6.? No complaints of nausea, emesis, abdominal pain or reflux, or constipation. Was not able to get Wegovy approved. Present meal plan includes: breakfast- 1 egg with tea lunch- soup or salad- chicken/meat dinner- skip, not hungry Isopure shakes recommended at last visit- 2 scoops/40g per day, pt reports she has been doing this only eating once a day currently, one meal at night Exercise routine includes: treadmill 4x/week- 30 min [facility] Medical History Abdominal pain, LUQ (left upper quadrant) Acute hemorrhoid Allergic rhinitis Asthma Back pain Class 1 obesity with body mass index (BMI) of 30.0 to 30.9 in adult COVID-19 vaccine series completed Dizziness Iron deficiency anemia Multinodular thyroid Neck pain Ocular myasthenia gravis Orthostatic hypotension Polyarthralgia Pre-syncope Right hand pain Umbilical hernia Vitamin D deficiency Surgical History Hx of cholecystectomy Hx of eye surgery History of umbilical hernia repair (~07/02/21) History of esophagogastroduodenoscopy (EGD) History of thyroidectomy History of gastric surgery History of section Family History Mother Hypertension Diabetes Father No problems noted. Paternal Uncle Breast cancer Social History Household Members: Significant Other and Children Housing: Apartment Are you a primary disabilities caregiver to a significant other at home: No Do you presently have visiting nurse or other home services: No Alcohol intake: never Patient Tobacco Use Status: Never used Tobacco e-Cigarette/Vaping Use: Never Used Second Hand Smoke Exposure: No service: No Current occupational status: unemployed Cognitive needs: No Hearing needs: No Vision needs: Yes (glasses) Physical Exam Vital Signs: Last Vital Signs Temp 98.7 F 07/28/23 11:51 Pulse 76 07/28/23 11:51 Pulse Ox 98 07/28/23 11:51 Oxygen Delivery Method Room Air 07/28/23 11:51 BMI result Body Mass Index 31.6 Assessment & Plan Assessment & Plan (1) Obesity (BMI 30.0-34.9): Code(s): E66.9 - Obesity, unspecified (2) History of gastric surgery: Comment: 06/2018 gastric sleeve surgery Code(s): Z98.890 - Other specified postprocedural states Plan Encouraged pt to resume a MVI, has not been taking. She continues to be too low on protein intake. I again tried to explain to her that it will be very difficult for her to lose weight and keep it off if she is not following an appropriate meal plan. Will try the following: Breakfast- 2 scoops Premier powder in 8oz unsweetened almond milk Lunch- another shake Dinner: 4 forks protein, 4 forks veg Next appt with RD- pt has worked with Dionne in the past, enjoyed her meal plan options and reports she did well with them. Patient is obese and is not considered stable at this time. I spent a total of 30 minutes reviewing/updating records, examining the patient and counseling the patient on weight management as detailed above. Coding Level of Care Code Est Pt Level 4 (36377) Diagnoses Obesity (BMI 30.0-34.9) E66.9 History of gastric surgery Z98.890
[2023-07-28 11:51] VITALS: PULSE 76; TEMP 37.1; O2SAT 98; BMI 31.6
== END 2023-07-28 12:30 | disposition home or self-care (01) ==
PROVIDERS: PCP Nurse Practitioner Family; Visit Provider Physician Assistant Surgical
DX: E66.9 Obesity, unspecified (principal); Z68.31 Body mass index [BMI] 31.0-31.9, adult; Z90.3 Acquired absence of stomach [part of]; Z98.84 Bariatric surgery status
CPT/HCPCS: 99214

== ENCOUNTER → 2023-07-28 11:41 | Outpatient (BNVA) | payer OTHER, SELFPAY | PROVIDERS: PCP Nurse Practitioner Family; Visit Provider Physician Assistant Surgical | DX: E66.9 Obesity, unspecified (principal); Z98.890 Other specified postprocedural states; Z68.31 Body mass index [BMI] 31.0-31.9, adult | CPT/HCPCS: 99212 ==

== ENCOUNTER 2023-08-06 10:22 | Outpatient (AMB) | payer OTHER, SELFPAY ==
--- NOTE | 2023-08-06 10:28 | MHC.PC.OV ---
Vital Signs 08/06/23 10:30 Height 5 ft 3 in Weight 182 lb BMI 32.2 BP 110/72 Blood Pressure Location Lt brachial Position Sitting Intake Visit Reasons: Physical Exam Intake Note: Patient here for a physical exam Drop Pit Worker Required: No Accompanied by: Self / Same As Patient Allergies Iodinated Contrast Media [IV CONTRAST] Allergy (Intermediate, Verified 08/06/23 10:41) DIFFICULTY BREATHING dextran sulfate Adverse Reaction (Mild, Verified 08/06/23 10:41) Cough Medication List - Last Reconciled 08/06/23 by Lucia Rico MD baclofen 10 mg PO BID PRN cetirizine 10 mg PO DAILY diclofenac sodium 1% 2 grams topical BID-TID fluticasone propionate 50 mcg/actuation (Flonase Allergy Relief) 1 spray intranasal DAILY fluticasone propionate 110 mcg/actuation (Flovent HFA) 2 puffs PO BID gabapentin 300 mg PO BID ketotifen fumarate 0.025%(0.035%) 1 drp ophthalmic (eye) Q8H lidocaine 5% 1 patch topical Q3D PRN meclizine 25 mg PO TID PRN 30 days midodrine 10 mg PO TID sertraline 100 mg PO DAILY topiramate 25 mg PO BID PRN venlafaxine ER 37.5 mg PO DAILY Ventolin HFA 90 mcg/actuation (albuterol sulfate) 2 puffs inhalation Q4-6H PRN NS zolpidem (Ambien) 5 mg PO BEDTIME PRN Tobacco use date assessed: 04/02/23 Dental Screening Dental Screen Date: 08/06/23 Did you have a dental visit in the last 12 months?: Yes Did you have a dental problem in the last 6 months where you did not have access to dental care?: No Was dental information given to patient?: Patient has dentist HPI HPI Comments History of Present Illness Details This is a 38-year-old female with 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 Depression stable with sertraline. Ocular myasthenia gravis is follow by [facility]. As per patient last Pap smear was this year and she follows with [facility]. Denies any chest pain or shortness of breath. [facility] Medical History (Updated 08/06/23 @ 10:52 by Lucia Rico MD) Allergic rhinitis Back pain Class 1 obesity with body mass index (BMI) of 30.0 to 30.9 in adult COVID-19 vaccine series completed Neck pain Vitamin D deficiency Multinodular thyroid Ocular myasthenia gravis Right hand pain Umbilical hernia Abdominal pain, LUQ (left upper quadrant) Asthma Iron deficiency anemia Polyarthralgia Acute hemorrhoid Pre-syncope Dizziness Orthostatic hypotension Surgical History Hx of cholecystectomy Hx of eye surgery History of umbilical hernia repair (~07/02/21) History of esophagogastroduodenoscopy (EGD) History of thyroidectomy History of gastric surgery History of section Family History (Updated 08/06/23 @ 10:49 by Lucia Rico MD) Mother Hypertension Diabetes Father No problems noted. Paternal Aunt Breast cancer Social History Household Members: Significant Other and Children Housing: Apartment Are you a primary weekend caregiver to a significant other at home: No Do you presently have visiting nurse or other home services: No Alcohol intake: never Patient Tobacco Use Status: Never used Tobacco e-Cigarette/Vaping Use: Never Used Second Hand Smoke Exposure: No service: No Current occupational status: unemployed Cognitive needs: No Hearing needs: No Vision needs: Yes (glasses) Questionnaire Thrive Questionnaire Date Thrive assessed: 11/27/22 EPI-7 AMB Questionnaire EPI-7 Date EPI - 7 assessed: 11/27/22 Source: Developed by Drs. Betito Carter, Renata Daigle, Adam Bowman and colleagues, with an educational jame from [employer]. Review of Systems Const All systems reviewed & are unremarkable except as noted in HPI and below Eyes Reports no additional complaints, Denies change in vision and Denies other visual disturbances Card Denies chest pain at rest, Denies chest pain with activity, Denies edema, Denies irregular heart rhythm, Denies claudication, Denies dyspnea, Denies dyspnea on exertion, Denies orthopnea, Denies paroxysmal nocturnal dyspnea and Denies slow heart rate Resp Denies cough, Denies dyspnea and Denies dyspnea on exertion GI Denies abdominal pain, Denies change in bowel habits, Denies excessive flatus, Denies nausea and Denies vomiting Denies urinary incontinence, Denies urinary hesitancy and Denies urinary urgency Musc Denies atrophy, Denies deformity and Denies limited range of motion Skin/Breast Denies bleeding lesions, Denies changing lesions and Denies rash Physical exam (Primary Care) Vital Signs: Last Vital Signs BP 110/72 08/06/23 10:30 BMI result Body Mass Index 32.2 Tobacco/Smoking Status: Tobacco use Status Tobacco use date assessed 04/02/23 08/06/23 10:33 Patient Tobacco Use Status Never used Tobacco 08/06/23 10:33 e-Cigarette/Vaping Use Never Used 08/06/23 10:33 Thrive Assessment: Date of Thrive Assessment Date Thrive assessed 11/27/22 08/06/23 10:33 Const Orientation/consciousness: patient oriented x3 HENMT Head: Yes normal to inspection, Yes normocephalic and Yes atraumatic Ears: external ears normal Eyes General: appearance normal, both eyes and all related structures Eyelids: Yes eyelids normal Conjunctivae: conjunctivae normal Neck Neck: Yes normal visual inspection and Yes supple Resp Effort & Inspection: normal respiratory effort Auscultation: clear to auscultation bilaterally Cardio Jugular venous distension: no JVD Rate: regular rate Rhythm: regular rhythm Heart sounds: S1 normal heart sound present and S2 normal heart sound present GI Inspection: Yes normal to inspection Palpation (GI): Soft to palpation and nontender Auscultation: normal bowel sounds Skin General skin exam: no rashes or lesions noted Neuro General: patient oriented x3 and no focal motor deficits Extrem General: Yes full ROM Psych Appearance: grossly normal Office Procedures Flu Questionnaire Does the patient have a severe egg allergy?: No Does the patient have severe life threatening allergies?: No Does the patient have a fever or illness today?: No Has the patient ever had Guillain-Carver Syndrome?: No Has the patient ever had any past reaction to a flu shot?: No Immunizations flu vacc [id number] 6mos up(PF) 60 mcg(15 mcgx4)/0.5 mL IM syringe Performing Provider: Lucia Rico MD Performing Location: [facility] Administered by: HENRIQUE Clark on 08/06/23 11:02 Dose Route Admin Location Dispensed Lot Number Expiration Date NDC Granulizing Machine Operator 0.5 mL IM Left Deltoid 0.5 mL [id number] 05/01/24 34264-371-36 [employer] VIS Given Date VIS Provided VIS Publication Date 08/06/23 Single Vaccine 21 Eligibility Eligibility Date Funding Source Not [facility] Eligible 08/06/23 Private Assessment and Plan Assessment & Plan (1) Physical exam: Code(s): Z00.00 - Encounter for general adult medical examination without abnormal findings Plan: Repeat in a year. (2) Mild recurrent major depression: Code(s): F33.0 - Major depressive disorder, recurrent, mild Plan: Continue SSRIs. (3) Ocular myasthenia gravis: Comment: This patient with diagnosis of ocular myasthenia gravis, seems to be stable at present, She is being followed by neurologist Dr. Kelley at [facility]. Code(s): G70.00 - Myasthenia gravis without (acute) exacerbation Plan: Follow-up with Neurology. Orders: Orders Thyroid Stimulating Hormone Today R79.89 - Other specified abnormal findings of blood chemistry Influenza [id number] Immunization Today Z23 - Encounter for immunization Free T4 (Free Thyroxine) Today R79.89 - Other specified abnormal findings of blood chemistry Lipid Panel Today Z00.00 - Encounter for general adult medical examination without abnormal findings Comprehensive [place]. Panel Fast Today Z00.00 - Encounter for general adult medical examination without abnormal findings Referrals Rheumatology Referral M54.50 - Low back pain, unspecified Medications: New midodrine do not give last dose of day after 6PM or within 4 hrs of bedtime 5 mg PO TID 270 tabs 1RF 90 days Discontinued midodrine Discontinued Reason: Patient Completed Course 10 mg PO TID 90 tabs 3RF Coding Level of Care Code Est Pt Prev Care 18-39y(75776) Diagnoses Physical exam Z00.00 Mild recurrent major depression F33.0 Ocular myasthenia gravis G70.00 Time Spent (min) 33
[2023-08-06 10:30] VITALS: BP 110/72; BMI 32.2
== END 2023-08-06 11:12 | disposition home or self-care (01) ==
PROVIDERS: PCP Nurse Practitioner Family; Visit Provider Internal Medicine
DX: Z00.00 Encounter for general adult medical examination without abnormal findings (principal); F33.0 Major depressive disorder, recurrent, mild; G70.00 Myasthenia gravis without (acute) exacerbation; Z23 Encounter for immunization
CPT/HCPCS: 90471; 90686; 99395

== ENCOUNTER 2023-08-21 11:18 | Outpatient (REF) | payer OTHER, SELFPAY ==
[2023-08-21 12:59] LABS: Alanine Aminotransferase 14 U/L (0-31); Albumin Level 4.1 g/dL (3.5-5.0); Alkaline Phosphatase 81 U/L (39-117); Anion Gap 13 (12-20); Aspartate Amino Transferase 17 U/L (5-31); Bilirubin Total 0.8 mg/dL (0.0-1.0); Blood Urea Nitrogen 10 mg/dL (9-16); Calcium 9.6 mg/dL (8.4-10.2); Carbon Dioxide 25 mmol/L (22-29); Chloride 105 mmol/L (96-108); Cholesterol 173 mg/dL (<200); Estimated Glomerular Filt Rate > 60; Glucose Fasting 87 mg/dL (60-99); HDL Cholesterol 48 mg/dL (>40); LDL Cholesterol Calculated 107 mg/dL (<100); Potassium 3.7 mmol/L (3.3-5.1); Sodium 139 mmol/L (135-145); Total Protein 7.2 g/dL (6.5-8.0); Triglycerides 92 mg/dL (<150)
[2023-08-21 13:04] LABS: Thyroid Stimulating Hormone 0.49 uIU/mL (0.32-4.0)
== END 2023-08-21 11:19 | disposition home or self-care (01) ==
LOC: HO.LAB 11:18
PROVIDERS: PCP Internal Medicine; Visit Provider Internal Medicine
DX: Z00.00 Encounter for general adult medical examination without abnormal findings (principal); R79.89 Other specified abnormal findings of blood chemistry
CPT/HCPCS: 36415; 80053; 80061; 84439; 84443

== ENCOUNTER 2023-08-21 11:35 | Outpatient (REF) | payer OTHER, SELFPAY | END 2023-08-21 11:36 | disposition home or self-care (01) | LOC: HO.MDS 11:35 | PROVIDERS: Visit Provider Internal Medicine | DX: D50.8 Other iron deficiency anemias (principal) | CPT/HCPCS: 96365; J1756 ==

== ENCOUNTER 2023-09-04 10:36 | Outpatient (REF) | payer OTHER, SELFPAY | END 2023-09-04 10:37 | disposition home or self-care (01) | LOC: HO.MDS 10:36 | PROVIDERS: Visit Provider Internal Medicine | DX: D50.8 Other iron deficiency anemias (principal) | CPT/HCPCS: 96365; J1756 ==

== ENCOUNTER 2023-09-11 10:33 | Outpatient (REF) | payer OTHER, SELFPAY | END 2023-09-11 10:34 | disposition home or self-care (01) | LOC: HO.MDS 10:33 | PROVIDERS: Visit Provider Internal Medicine | DX: D50.8 Other iron deficiency anemias (principal) | CPT/HCPCS: 96365; J1756 ==

== ENCOUNTER 2023-09-17 13:03 | Outpatient (AMB) | payer OTHER, SELFPAY ==
--- NOTE | 2023-09-17 13:05 | A.OFFVIS_ITS ---
Intake Vital Signs 09/17/23 13:07 Height 5 ft 3 in Weight 187 lb 6.287 oz BMI 33.2 BP 90/54 L Blood Pressure Location Lt brachial Position Sitting Pulse 64 Intake Visit Reasons: 1 year follow up Intake Note: 1 year follow up wEra EKG Starch Cooker Required: No Accompanied by: Self / Same As Patient Allergies Iodinated Contrast Media [IV CONTRAST] Allergy (Intermediate, Verified 09/17/23 13:08) DIFFICULTY BREATHING dextran sulfate Adverse Reaction (Mild, Verified 09/17/23 13:08) Cough Medication List - Last Reconciled 09/17/23 by Augustine Lopez MD baclofen 10 mg PO BID PRN cetirizine 10 mg PO DAILY diclofenac sodium 1% 2 grams topical BID-TID fluticasone propionate 50 mcg/actuation (Flonase Allergy Relief) 1 spray intranasal DAILY fluticasone propionate 110 mcg/actuation (Flovent HFA) 2 puffs PO BID gabapentin 300 mg PO BID ketotifen fumarate 0.025%(0.035%) 1 drp ophthalmic (eye) Q8H lidocaine 5% 1 patch topical Q3D PRN meclizine 25 mg PO TID PRN 30 days midodrine 5 mg PO TID 90 days sertraline 100 mg PO DAILY topiramate 25 mg PO BID PRN venlafaxine ER 37.5 mg PO DAILY Ventolin HFA 90 mcg/actuation (albuterol sulfate) 2 puffs inhalation Q4-6H PRN NS zolpidem (Ambien) 5 mg PO BEDTIME PRN HPI HPI Comments History of Present Illness Details Noor returns for follow up of dizziness and orthostatic hypotension. In the past, she underwent weight loss surgery and lost about 80-90 lb. Even before the surgery she had lowish blood pressures. She is maintained on midodrine. In the past, she was also on Florinef but not anymore. Mostly doing well. No clear dizziness. Sometimes, she states that blood pressures are going quite high into the 160s and then she does not take the midodrine dose days. Today, it is again low. [facility] Medical History Abdominal pain, LUQ (left upper quadrant) Acute hemorrhoid Allergic rhinitis Asthma Back pain Class 1 obesity with body mass index (BMI) of 30.0 to 30.9 in adult COVID-19 vaccine series completed Dizziness Iron deficiency anemia Multinodular thyroid Neck pain Ocular myasthenia gravis Orthostatic hypotension Polyarthralgia Pre-syncope Right hand pain Umbilical hernia Vitamin D deficiency Surgical History Hx of cholecystectomy Hx of eye surgery History of umbilical hernia repair (~07/02/21) History of esophagogastroduodenoscopy (EGD) History of thyroidectomy History of gastric surgery History of section Family History Mother Hypertension Diabetes Father No problems noted. Paternal Aunt Breast cancer Social History Household Members: Significant Other and Children Housing: Apartment Are you a primary long term acute care registered nurse to a significant other at home: No Do you presently have visiting nurse or other home services: No Alcohol intake: never Patient Tobacco Use Status: Never used Tobacco e-Cigarette/Vaping Use: Never Used Second Hand Smoke Exposure: No service: No Current occupational status: unemployed Cognitive needs: No Hearing needs: No Vision needs: Yes (glasses) Review of Systems Const Denies weakness ENT Denies dizziness Card Denies chest pain, Denies chest pain with activity, Denies syncope, Denies rapid heart rate, Denies pedal edema, Denies edema, Denies leg edema, Denies lightheadedness, Denies palpitations, Denies dyspnea, Denies dyspnea on exertion and Denies orthopnea Resp Denies cough, Denies dyspnea and Denies dyspnea on exertion GI Denies hematochezia and Denies change in stool character Musc Denies abnormal gait, Denies muscle cramps, Denies muscle weakness, Denies numbness, Denies radiating pain into limb and Denies tingling Neuro Denies abnormal gait, Denies dizziness, Denies syncope, Denies numbness, Denies tingling and Denies weakness Endo Denies palpitations Physical Exam Vital Signs: Last Vital Signs Pulse 64 09/17/23 13:07 BP 90/54 L 09/17/23 13:07 BMI result Body Mass Index 33.2 Const General: comfortable and no acute distress Orientation/consciousness: patient oriented x3 HEENT Other: Unremarkable Head: Yes normal to inspection Neck Neck: Yes normal visual inspection Chest Chest palpation & inspection: normal inspection of the chest Resp Auscultation: clear to auscultation bilaterally Cardio Palpation: normal PMI Heart sounds: S1 normal heart sound present, S2 normal heart sound present, no gallops, no murmurs and no rubs GI Palpation (GI): Soft to palpation Back/Spine/Pelvis Other: unremarkable Skin General skin exam: no rashes or lesions noted Neuro General: patient oriented x3 Extrem General: Yes normal to inspection Psych Mental Status: mental status grossly normal Office Procedures EKG Details: EKG with sinus rhythm at 64/Min; low voltage QRS complex; no significant ST-T changes and otherwise unremarkable[place] [id number], Complete Assessment & Plan Assessment & Plan (1) Orthostatic hypotension: Code(s): I95.1 - Orthostatic hypotension Plan Continue midodrine without changes. On days when the blood pressure go up > 120 mm systolic, not to take midodrine. Discussed. Follow-up in 1 year. Coding Level of Care Code Est Pt Level 3 (78542) Diagnoses Orthostatic hypotension I95.1 CPT Codes EKG - CPT: 84910-[id number], Complete ([id number])
[2023-09-17 13:07] VITALS: BP 90/54; PULSE 64; BMI 33.2
== END 2023-09-17 13:23 | disposition home or self-care (01) ==
PROVIDERS: Visit Provider Internal Medicine
DX: I95.1 Orthostatic hypotension (principal)
CPT/HCPCS: 93010; 99213

== ENCOUNTER → 2023-09-17 13:03 | Outpatient (BNVA) | payer OTHER, SELFPAY | PROVIDERS: Visit Provider Internal Medicine | DX: I95.1 Orthostatic hypotension (principal) | CPT/HCPCS: 93005; 99212 ==

== ENCOUNTER 2023-11-11 12:57 | Outpatient (AMB) | payer OTHER, SELFPAY ==
[2023-11-11 13:01] VITALS: BP 112/64; PULSE 76; O2SAT 98; BMI 34.1
--- NOTE | 2023-11-11 13:01 | MHC.OFFVIS ---
Intake Vital Signs 11/11/23 13:01 Height 5 ft 3 in Weight 192 lb 3.889 oz BMI 34.1 BP 112/64 Blood Pressure Location Rt brachial Position Sitting Pulse 76 Pulse Source Pulse Oximeter Pulse Oximetry (%) 98 Oxygen Delivery Method Room Air Intake Visit Reasons: LBP Intake Note: New pt presents today for consult at the request of PCP. C/o low back pain and joint pain States pain started a long time ago but PCP did labs and xrays and was told she has arthritis Biometrics Analyst Required: Yes Biometrics Analyst Language: Lithuanian Accompanied by: Self / Same As Patient Allergies Iodinated Contrast Media [IV CONTRAST] Allergy (Intermediate, Verified 11/11/23 13:06) DIFFICULTY BREATHING dextran sulfate Adverse Reaction (Mild, Verified 11/11/23 13:06) Cough Medication List - Last Reconciled 11/11/23 by Farooq Ventura MD baclofen 10 mg PO BID PRN cetirizine 10 mg PO DAILY diclofenac sodium 1% 2 grams topical BID-TID fluticasone propionate 50 mcg/actuation (Flonase Allergy Relief) 1 spray intranasal DAILY fluticasone propionate 110 mcg/actuation (Flovent HFA) 2 puffs PO BID gabapentin 300 mg PO BID ketotifen fumarate 0.025%(0.035%) 1 drp ophthalmic (eye) Q8H lidocaine 5% 1 patch topical Q3D PRN meclizine 25 mg PO TID PRN 30 days midodrine 5 mg PO TID 90 days sertraline 100 mg PO DAILY topiramate 25 mg PO BID PRN venlafaxine ER 37.5 mg PO DAILY Ventolin HFA 90 mcg/actuation (albuterol sulfate) 2 puffs inhalation Q4-6H PRN NS zolpidem (Ambien) 5 mg PO BEDTIME PRN HPI HPI Comments History of Present Illness Details This is a 38-year-old female who presents for evaluation of polyarthralgias. Of note patient was recently diagnosed with myasthenia gravis and states that she is on pyridostigmine. She states that over the last 1-2 years she has been having multiple joint pain including wrists, hands, elbows, knees, shoulders. She has morning stiffness lasting around 1 hour. Intermittent swelling of her fingers. Also recently she notices that he can not tolerate the cold. She has to go out wearing gloves. In the cold her fingers change color to pale white and red. Sometimes she had to put her hands under warm water. She denies any history of DVT/PE. She denies any history of abortions or miscarriages. She is unaware of any family history of an autoimmune rheumatic disease. Denies any fevers or weight loss. [facility] Medical History Allergic rhinitis Back pain Class 1 obesity with body mass index (BMI) of 30.0 to 30.9 in adult COVID-19 vaccine series completed Neck pain Vitamin D deficiency Multinodular thyroid Ocular myasthenia gravis Right hand pain Umbilical hernia Abdominal pain, LUQ (left upper quadrant) Asthma Iron deficiency anemia Polyarthralgia Acute hemorrhoid Pre-syncope Dizziness Orthostatic hypotension Surgical History Hx of cholecystectomy Hx of eye surgery History of umbilical hernia repair (~07/02/21) History of esophagogastroduodenoscopy (EGD) History of thyroidectomy History of gastric surgery History of section Family History Mother Hypertension Diabetes Father No problems noted. Paternal Aunt Breast cancer Social History Household Members: Significant Other and Children Housing: Apartment Are you a primary transitional care manager to a significant other at home: No Do you presently have visiting nurse or other home services: No Alcohol intake: never Patient Tobacco Use Status: Never used Tobacco e-Cigarette/Vaping Use: Never Used Second Hand Smoke Exposure: No service: No Current occupational status: unemployed Cognitive needs: No Hearing needs: No Vision needs: Yes (glasses) Female Reproductive History Menstrual Total pregnancies: 4 Full term: 4 Review of Systems Const Reports weight gain Musc Reports back pain, Reports arthralgias, Reports joint swelling, Reports limited range of motion and Reports stiffness Skin/Breast Denies rash Physical Exam Vital Signs: Last Vital Signs Pulse 76 11/11/23 13:01 BP 112/64 11/11/23 13:01 Pulse Ox 98 11/11/23 13:01 Oxygen Delivery Method Room Air 11/11/23 13:01 BMI result Body Mass Index 34.1 Const General: cooperative, healthy appearing and comfortable Nutritional Appearance: obese Orientation/consciousness: patient oriented x3 Limitations: no limitations HEENT Head: Yes normocephalic and Yes atraumatic Mouth: moist mucous membranes Resp Effort & Inspection: normal respiratory effort and able to speak in complete sentences Auscultation: clear to auscultation bilaterally Cardio Rate: regular rate Skin General skin exam: no rashes or lesions noted Neuro General: patient oriented x3 Extrem Other: Bilateral tender wrists and pain with flexion and extension Multiple tender MCPs and PIP is bilaterally Bilateral elbow pain with flexion and extension Bilateral reduced shoulder abduction Bilateral knee pain with full extension Left ankle pain posteriorly without swelling Negative MTP squeeze test Normal nailfold capillaroscopy Results Reviewed Results Reviewed: Bilateral hand x-rays 05/2023? Right hand findings: Bone mineralization is normal.? Mild degenerative changes in the 1st carpometacarpal joint with joint space narrowing and hypertrophic change.? Mild degenerative changes with mild hypertrophic change in scattered interphalangeal joints.?? Left hand: bone mineralization is normal.? Mild degenerative changes in the 1st carpometacarpal joint with joint space narrowing and hypertrophic change.? Mild degenerative changes with mild hypertrophic change in scattered interphalangeal joints Assessment & Plan Assessment & Plan (1) Polyarthralgia: Code(s): M25.50 - Pain in unspecified joint Plan: This is a 38-year-old female who presents for evaluation of multiple joint pain. She has morning stiffness of her joints lasting about 1 hour. Mentions few swollen joints. Symptoms suggestive of Raynaud's. No swollen joints on exam but multiple tender joints. Recent labs showed borderline elevated rheumatoid factor. Will order comprehensive serology to screen for underlying autoimmune rheumatic disease Check x-rays of involved joints Start prednisone therapeutic trial Follow-up in 2 weeks Plan I spent 47 minutes reviewing patient's chart, evaluating patient, ordering diagnostic workup, counseling patient and documenting in the chart Orders: Orders Comprehensive Met. Panel Today M06.9 - Rheumatoid arthritis, unspecified C Reactive Protein Today M06.9 - Rheumatoid arthritis, unspecified Erythrocyte Sedimentation Rate Today M06.9 - Rheumatoid arthritis, unspecified Hepatitis A,B,C Profile Today Z11.59 - Encounter for screening for other viral diseases T Spot TB Today Z11.7 - Encounter for testing for latent tuberculosis infection Protein Electrophoresis, Serum Today M06.9 - Rheumatoid arthritis, unspecified Immunofixation Pnl, Serum Today M06.9 - Rheumatoid arthritis, unspecified Cyclic Citrullinated Peptide Today M06.9 - Rheumatoid arthritis, unspecified XR knee standing BI Today M06.9 - Rheumatoid arthritis, unspecified XR knee LT 3V Today M06.9 - Rheumatoid arthritis, unspecified XR ankle LT min 3V Today M06.9 - Rheumatoid arthritis, unspecified XR ankle RT min 3V Today M06.9 - Rheumatoid arthritis, unspecified XR foot RT min 3V Today M06.9 - Rheumatoid arthritis, unspecified BREE Reflex Titer and Pattern Today M32.9 - Systemic lupus erythematosus, unspecified Complement C4 Today M32.9 - Systemic lupus erythematosus, unspecified DNA Double Stranded-Crithidia Today M32.9 - Systemic lupus erythematosus, unspecified Sjogren's Antibodies Today M32.9 - Systemic lupus erythematosus, unspecified Beta-2 Glycoprotein Antibody Today D68.61 - Antiphospholipid syndrome Cardiolipin Antibodies Today D68.61 - Antiphospholipid syndrome Lupus Anticoagulant Panel Today D68.61 - Antiphospholipid syndrome Scleroderma 12 Panel Today M34.9 - Systemic sclerosis, unspecified Complete Blood Count Auto Diff Today M06.9 - Rheumatoid arthritis, unspecified Rheumatoid Factor Today M06.9 - Rheumatoid arthritis, unspecified XR knee RT 3V Today M06.9 - Rheumatoid arthritis, unspecified XR foot LT min 3V Today M06.9 - Rheumatoid arthritis, unspecified Anti Extractable Nuclear Ag Today M32.9 - Systemic lupus erythematosus, unspecified Anti DNA DS Antibody Today M32.9 - Systemic lupus erythematosus, unspecified Complement C3 Today M32.9 - Systemic lupus erythematosus, unspecified Protein Creatinine Ratio, Ur Today M32.9 - Systemic lupus erythematosus, unspecified UA w Microscopic Today M32.9 - Systemic lupus erythematosus, unspecified Medications: New prednisone 15 mg (3 x 5 mg) PO TID 42 tabs 0RF Coding Level of Care Code New Pt Level 4 (69645) Diagnoses Polyarthralgia M25.50
== END 2023-11-11 13:28 | disposition home or self-care (01) ==
PROVIDERS: PCP Nurse Practitioner Family; Visit Provider Student in an Organized Health Care Education/Training Program
DX: M25.50 Pain in unspecified joint (principal)
CPT/HCPCS: 99204

== ENCOUNTER → 2023-11-11 12:57 | Outpatient (BNVA) | payer OTHER, SELFPAY | PROVIDERS: PCP Nurse Practitioner Family; Visit Provider Student in an Organized Health Care Education/Training Program | DX: M25.50 Pain in unspecified joint (principal) | CPT/HCPCS: 99202 ==

== ENCOUNTER 2023-11-12 10:55 | Outpatient (AMB) | payer OTHER, SELFPAY ==
--- NOTE | 2023-11-12 11:14 | A.OFFVIS_ITS ---
Intake Vital Signs 11/12/23 11:15 Height 5 ft 3 in Weight 191 lb BMI 33.8 BP 86/52 L Blood Pressure Location Lt brachial Position Sitting Pulse 67 Pulse Source Pulse Oximeter Pulse Oximetry (%) 99 Oxygen Delivery Method Room Air Intake Visit Reasons: Asthma Intake Note: pt is here for follow up and states she has some coughing. pt states she use to have a small white pill that helped with her allergies. In the morning her allergies bother her. pt is on flovent and need alternative to be sent in. Radiation Control Technician Required: No Allergies Iodinated Contrast Media [IV CONTRAST] Allergy (Intermediate, Verified 11/12/23 11:58) DIFFICULTY BREATHING dextran sulfate Adverse Reaction (Mild, Verified 11/12/23 11:58) Cough Medication List - Last Reconciled 11/12/23 by Asiya Mcintyre MD albuterol sulfate 90 mcg/actuation 2 puffs inhalation Q4-6H PRN 30 days baclofen 10 mg PO BID PRN beclomethasone dipropionate 80 mcg/actuation (Qvar RediHaler) 1 inh inhalation BID 30 days desogestrel-ethinyl estradiol 0.15-0.03 mg (Apri) 1 tab PO DAILY diclofenac sodium 1% 2 grams topical BID-TID docusate sodium 100 mg PO BID fluticasone propionate 50 mcg/actuation (Flonase Allergy Relief) 1 spray intranasal DAILY gabapentin 300 mg PO BID ketotifen fumarate 0.025%(0.035%) 1 drp ophthalmic (eye) Q8H lidocaine 5% 1 patch topical Q3D PRN loratadine (Allergy Relief (loratadine)) 10 mg PO DAILY 30 days meclizine 25 mg PO TID PRN 30 days midodrine 5 mg PO TID 90 days prednisone 15 mg (3 x 5 mg) PO TID sertraline 100 mg PO DAILY temazepam 7.5 mg PO BEDTIME PRN topiramate 25 mg PO BID PRN venlafaxine ER 37.5 mg PO DAILY Ventolin HFA 90 mcg/actuation (albuterol sulfate) 2 puffs inhalation Q4-6H PRN NS Do you need a note to return to daycare/school/sports/work: No HPI Asthma HPI Details 38 years old female is a case of chronic allergic rhinitis/bronchial asthma. Her symptoms have been somewhat worse, as she does not have antihistaminic agent on hand. She is having increased cough and wheezing especially at night and has to use the rescue inhaler 2-3 times per night. She denies any chest infection fever or chills. [facility] Medical History Allergic rhinitis Back pain Class 1 obesity with body mass index (BMI) of 30.0 to 30.9 in adult COVID-19 vaccine series completed Neck pain Vitamin D deficiency Multinodular thyroid Ocular myasthenia gravis Right hand pain Umbilical hernia Abdominal pain, LUQ (left upper quadrant) Asthma Iron deficiency anemia Polyarthralgia Acute hemorrhoid Pre-syncope Dizziness Orthostatic hypotension Surgical History Hx of cholecystectomy Hx of eye surgery History of umbilical hernia repair (~07/02/21) History of esophagogastroduodenoscopy (EGD) History of thyroidectomy History of gastric surgery History of section Family History Mother Hypertension Diabetes Father No problems noted. Paternal Aunt Breast cancer Social History Household Members: Significant Other and Children Housing: Apartment Are you a primary childbirth and infant care teacher to a significant other at home: No Do you presently have visiting nurse or other home services: No Alcohol intake: never Patient Tobacco Use Status: Never used Tobacco e-Cigarette/Vaping Use: Never Used Second Hand Smoke Exposure: No service: No Current occupational status: unemployed Cognitive needs: No Hearing needs: No Vision needs: Yes (glasses) Review of Systems Const All systems reviewed & are unremarkable except as noted in HPI and below Reports fatigue and Reports weakness Eyes Reports other (Ptosis of eyelids when tired) ENT Reports nasal congestion (Intermittent) Card Denies chest pain, Reports syncope (History of pre syncopal attacks, due to postural hypotension), Denies irregular heart rhythm and Denies leg edema Resp Reports as per HPI GI Reports no additional complaints Reports no additional complaints Musc Reports back pain Skin/Breast Reports system reviewed and no additional complaints, except as documented Neuro Reports syncope (History of pre syncopal attacks, due to postural hypotension), Reports weakness and Reports other (History of myasthenia gravis) Psych Reports depression (Controlled with med) Endo Reports fatigue and Reports other (Mom thyroid nodules, borderline thyroid dysfunction) Physical Exam Vital Signs: Last Vital Signs Pulse 67 11/12/23 11:15 BP 86/52 L 11/12/23 11:15 Pulse Ox 99 11/12/23 11:15 Oxygen Delivery Method Room Air 11/12/23 11:15 BMI result Body Mass Index 33.8 Const General: comfortable, no acute distress, alert and awake Orientation/consciousness: patient oriented x3 HEENT Head: Yes normal to inspection General nose exam: No nasal polyps present, No nasal discharge present and Other nasal findings present (Mild to moderate bilateral nasal congestion) Face and sinus: Yes sinuses nontender Mouth: oropharynx normal Throat: Yes posterior oropharynx normal Eyes General: appearance normal, both eyes and all related structures Neck Neck: Yes normal visual inspection, Yes no lymphadenopathy, Yes trachea midline and Yes no JVD Thyroid: Thyroid normal Chest Chest palpation & inspection: normal inspection of the chest, normal palpation of entire chest wall and no tenderness Resp Effort & Inspection: normal respiratory effort and no cough Auscultation: clear to auscultation bilaterally, no crackles and wheezes (A few scattered expiratory wheezes over the lower lobes) Cardio Palpation: normal PMI Rate: regular rate Rhythm: regular rhythm Heart sounds: no gallops and no murmurs Peripheral pulses: Peripheral pulses 2+ throughout GI Palpation (GI): Soft to palpation, nontender, No hepatosplenomegaly present and no masses Auscultation: normal bowel sounds Back/Spine/Pelvis Thoracic/Lumbar Spine: thoracic and lumbar spine normal to inspection Skin General skin exam: no rashes or lesions noted Neuro General: patient oriented x3 and no focal motor deficits Cranial nerves: Yes CN's II-XII intact bilaterally Extrem General: Yes normal to inspection, Yes no clubbing, cyanosis or edema and Yes no calf tenderness Psych Appearance: grossly normal and well kempt Speech and movement: Normal speech and movement present Assessment & Plan Assessment & Plan (1) Allergic rhinitis: Comment: HAS CHRONIC NASAL ALLERGIES BUT MILD, Code(s): J30.9 - Allergic rhinitis, unspecified Plan: ADVISED TO CONTINUE USING FLONASE 2 SPRAY EACH NOSTRIL DAILY AND USE LORATDINE 10 MG Q DAILY P.R.N. (2) Asthma: Comment: Mild intermittent bronchial asthma, most likely allergic , secondary to environmental allergies. PULMONARY FUNCTION TEST WAS ESSENTIALLY NORMAL. HOWEVER CLINICALLY SHE SEEMS TO HAVE MILD INTERMITTENT BRONCHIAL ASTHMA AND IS BENEFITING FROM THE USE OF FLOVENT. Code(s): J45.909 - Unspecified asthma, uncomplicated Plan: FLOVENT IS NO LONGER AVAILABLE . QVAR REDIHALER 80 1 INHALATION B.I.D. IS ORDERED. PROAIR 2 PUFFS Q 4-6 HOURS P.R.N.. Medications: New loratadine (Allergy Relief (loratadine)) 10 mg PO DAILY 30 days 30 tabs 5RF allergic Rhinitis beclomethasone dipropionate 80 mcg/actuation (Qvar RediHaler) 1 inh inhalation BID 30 days 10.6 grams 5RF asthma albuterol sulfate 90 mcg/actuation 2 puffs inhalation Q4-6H 30 days PRN 8.5 grams 5RF shortness of breath or wheezing Coding Level of Care Code Est Pt Level 3 (48400) Diagnoses Allergic rhinitis J30.9 Asthma J45.909
[2023-11-12 11:15] VITALS: BP 86/52; PULSE 67; O2SAT 99; BMI 33.8
== END 2023-11-12 11:35 | disposition home or self-care (01) ==
PROVIDERS: PCP Nurse Practitioner Family; Visit Provider Internal Medicine
DX: J30.9 Allergic rhinitis, unspecified (principal); J45.909 Unspecified asthma, uncomplicated
CPT/HCPCS: 99213

== ENCOUNTER 2023-11-12 10:55 | Outpatient (REF) | payer OTHER, SELFPAY ==
[2023-11-12 12:26] LABS: MANUAL DIFF FLAG NO
[2023-11-12 12:35] LABS: Basophils Percent Auto 0.6 % (0-2); Eosinophils Absolute Auto 0.1 X10*3/uL (0.0-0.4); Eosinophils Percent Auto 2.2 % (0-4); Hematocrit 41.6 % (37.0-47.0); Imm Gran Abs Auto 0.05 X10*3/uL (0.00-0.03); Imm Gran Pct Auto 0.8 % (0.0-0.4); Lymphocytes Absolute Auto 1.7 X10*3/uL (1.2-4.9); Mean Corpuscular HGB Conc 31.3 g/dl (31.0-35.0); Mean Corpuscular Hemoglobin 24.9 pg (27.0-33.0); Mean Corpuscular Volume 79.7 fL (80.0-98.0); Mean Platelet Volume 8.7 fL (9.4-12.3); Monocytes Absolute Auto 0.5 X10*3/uL (0.1-1.2); Monocytes Percent Auto 7.5 % (2-11); Neutrophils Absolute Auto 3.9 x10*3/uL (2.0-8.3); Neutrophils Percent Auto 61.9 % (45-73); Platelet Count 262 X10*3/uL (160-400); Red Blood Count 5.22 X10*6/uL (4.20-5.50); Red Cell Distribution Width 13.8 % (11.0-16.0); White Blood Count 6.3 X10*3/uL (4.8-10.8)
[2023-11-12 13:07] LABS: Alanine Aminotransferase 13 U/L (0-31); Albumin Level 4.1 g/dL (3.5-5.0); Alkaline Phosphatase 81 U/L (39-117); Anion Gap 9 (12-20); Aspartate Amino Transferase 14 U/L (5-31); Bilirubin Total 0.7 mg/dL (0.0-1.0); Blood Urea Nitrogen 10 mg/dL (9-16); Calcium 9.2 mg/dL (8.4-10.2); Carbon Dioxide 27 mmol/L (22-29); Chloride 106 mmol/L (96-108); Estimated Glomerular Filt Rate > 60; Glucose Random 94 mg/dL (60-115); Potassium 3.6 mmol/L (3.3-5.1); Sodium 138 mmol/L (135-145); Total Protein 7.1 g/dL (6.5-8.0)
[2023-11-12 13:08] LABS: Erythrocyte Sedimentation Rate 6 MM/HR (0-20)
[2023-11-12 14:02] LABS: Appearance Urine Cloudy; Color Urine Yellow; Creatinine Urine 215.16 mg/dL; Glucose Urine UA Negative (Negative); Leukocyte Esterase Urine Small (1+) (Negative); Nitrite Urine Negative (Negative); PH 5.5 (5.0-9.0); Protein/Creatinine Ratio, Ur 0.05 (<0.2); Specific Gravity - Urine 1.025 (1.005-1.025); Total Protein Urine Random 11 mg/dL (<12); UMIC TRIGGER UA YES; Urine Blood Negative (Negative); Urine Ketones Negative (Negative); Urine Protein Negative (Neg-Trace)
[2023-11-12 14:05] LABS: Bacteria Urine 1+ (None Seen); Hyaline Casts Urine 0-2 /LPF (0-2)
[2023-11-12 14:24] LABS: RBC Urine 0-2 /HPF (0-2)
[2023-11-13 08:04] LABS: HBc Num1 0.12 S/CO (0.00-0.79); HBsAGNum1 0.22 S/CO (0.00-0.99); Hepatitis A Antibody IgM 0.39 Index (0-0.79); Hepatitis B Core Antibody Nonreactive (Nonreactive); Hepatitis B Surface Antigen Negative (Negative); ~HepC Num1 0.14 S/CO (0.00-0.79); ~Hepatitis A Antibody IgM Nonreactive (Nonreactive); ~Hepatitis B Surface Antibody REACTIVE (Nonreactive); ~Hepatitis C Antibody Nonreactive (Nonreactive)
[2023-11-14 21:32] LABS: TS Negative Control Passed; TS Panel A 0; TS Panel B 0; TS Positive Control Passed; TSpotTB Negative (Negative)
[2023-11-16 09:38] LABS: Complement C3 35 mg/dL (83-193)
[2023-11-16 12:34] LABS: Prot Elec - Albumin 4.2 g/dL (3.8-4.8); Prot Elec - Alpha1 0.3 g/dL (0.2-0.3); Prot Elec - Alpha2 0.5 g/dL (0.5-0.9); Prot Elec - Beta 1 0.5 g/dL (0.4-0.6); Prot Elec - Beta 2 0.4 g/dL (0.2-0.5); Prot Elec - Gamma 1.2 g/dL (0.8-1.7)
[2023-11-16 22:13] LABS: Anti DNA DS Antibody 1 IU/mL; Antibody to SS-A Antigen <1.0 NEG AI (<1.0 NEG); Antibody to SS-B Antigen <1.0 NEG AI (<1.0 NEG); SM/Ribonucleoprotein Ab <1.0 NEG AI (<1.0 NEG); Smith Protein <1.0 NEG AI (<1.0 NEG)
[2023-11-18 05:39] LABS: PTT (LAC) Screen 39 sec (<=40)
[2023-11-18 11:08] LABS: Anti Nuclear Antibody Screen NEGATIVE (NEGATIVE)
[2023-11-18 13:34] LABS: IgA 264 mg/dL (47-310); IgG 1245 mg/dL (600-1640); IgM 174 mg/dL (50-300)
[2023-11-18 14:04] LABS: Cardiolipin IgG Ab <2.0 GPL-U/mL; Cardiolipin IgM Ab <2.0 MPL-U/mL
[2023-11-20 13:04] LABS: Cyclic Citrullinated Peptide <16 UNITS
[2023-11-20 15:23] LABS: DNAds, Crithidia Antibody Negative (Negative)
[2023-11-21 05:09] LABS: Beta-2 Glycoprotein IgA <2.0 U/mL (<20.0); Beta-2 Glycoprotein IgG <2.0 U/mL (<20.0); Beta-2 Glycoprotein IgM <2.0 U/mL (<20.0)
[2023-11-26 17:44] LABS: Centromere Protein A Ab <11 SI (<11); Centromere Protein B Ab <11 SI (<11); Fibrillarin Ab <11 SI (<11); PM SCL 100 Ab <11 SI (<11); PM SCL 75 Ab <11 SI (<11); RNA Polymerase III RP11 Ab <11 SI (<11); RNA Polymerase III RP155 Ab <11 SI (<11); SCL-70 Extractable Nuclear Ab <11 SI (<11); Th-To Ab <11 SI (<11); U1 SNRNP RNP 70KD <11 SI (<11); U1 SNRNP RNP A <11 SI (<11); U1 SNRNP RNP C <11 SI (<11)
== END 2023-11-12 10:56 | disposition home or self-care (01) ==
LOC: HO.LAB 10:55
PROVIDERS: Student in an Organized Health Care Education/Training Program; PCP Internal Medicine; Visit Provider Internal Medicine
DX: D68.61 Antiphospholipid syndrome (principal); J45.909 Unspecified asthma, uncomplicated; M32.9 Systemic lupus erythematosus, unspecified; M34.9 Systemic sclerosis, unspecified; Z11.7 Encounter for testing for latent tuberculosis infection; M06.9 Rheumatoid arthritis, unspecified; Z79.899 Other long term (current) drug therapy
CPT/HCPCS: 36415; 80053; 81001; 82570; 82784; 84156; 84165; 84182; 85025; 85597; 85598; 85613; 85652; 85730; 86038; 86140; 86146; 86147; 86160; 86200; 86225; 86235; 86255; 86334; 86431; 86481; 86704; 86706; 86709; 86803; 87340; 99212

== ENCOUNTER 2023-12-30 11:53 | Outpatient (REF) | payer OTHER, SELFPAY ==
--- NOTE | ~2023-12-30 | XR_ITS ---
EXAMINATION: XR KNEE, RIGHT XR KNEE, LEFT XR KNEE AP STANDING CLINICAL INFORMATION: Rheumatoid arthritis. COMPARISON: Radiographs dated 08/22/2021. TECHNIQUE: AP, lateral and sunrise views of the right knee were obtained. AP, lateral and sunrise views of the left knee were obtained. AP bilateral standing view of the knees was obtained. FINDINGS: RIGHT KNEE: No fracture or joint effusion. Alignment is anatomic. Joint spaces are maintained. No abnormal soft tissue calcification. LEFT KNEE: No fracture or joint effusion. Alignment is anatomic. Joint spaces are maintained. No abnormal soft tissue calcification. XR/XR knee LT 2V IMPRESSION: Unremarkable bilateral knee radiographs.
--- NOTE | ~2023-12-30 | XR_ITS ---
EXAMINATION: XR ANKLE, RIGHT XR FOOT, RIGHT CLINICAL INFORMATION: Rheumatoid arthritis. COMPARISON: None available. TECHNIQUE: AP, lateral, and mortise views of the right ankle. AP, lateral, and oblique views of the right foot. FINDINGS: Bony alignment and mineralization are normal. The ankle mortise is intact. No fracture, dislocation or left ankle joint effusion is seen. Boehler's angle is normal. There is no calcaneal spur. No unusual bony erosive or productive change is seen. There is no focal soft tissue swelling, gas or foreign body. XR/XR foot RT min 3V IMPRESSION: Normal right ankle and foot radiographs.
--- NOTE | ~2023-12-30 | XR_ITS ---
EXAMINATION: XR ANKLE, LEFT XR FOOT, LEFT CLINICAL INFORMATION: Rheumatoid arthritis. COMPARISON: None available. TECHNIQUE: AP, lateral, and mortise views of the left ankle. AP, lateral, and oblique views of the left foot. FINDINGS: Bony alignment and mineralization are normal. The ankle mortise is intact. No fracture, dislocation or left ankle joint effusion is seen. Boehler's angle is normal. There is no calcaneal spur. No unusual bony erosive or productive change is seen. There is no focal soft tissue swelling, gas or foreign body. XR/XR foot LT min 3V IMPRESSION: Normal left ankle and foot radiographs.
--- NOTE | ~2023-12-30 | XR_ITS ---
EXAMINATION: XR KNEE, RIGHT XR KNEE, LEFT XR KNEE AP STANDING CLINICAL INFORMATION: Rheumatoid arthritis. COMPARISON: Radiographs dated 08/22/2021. TECHNIQUE: AP, lateral and sunrise views of the right knee were obtained. AP, lateral and sunrise views of the left knee were obtained. AP bilateral standing view of the knees was obtained. FINDINGS: RIGHT KNEE: No fracture or joint effusion. Alignment is anatomic. Joint spaces are maintained. No abnormal soft tissue calcification. LEFT KNEE: No fracture or joint effusion. Alignment is anatomic. Joint spaces are maintained. No abnormal soft tissue calcification. XR/XR knee RT 2V IMPRESSION: Unremarkable bilateral knee radiographs.
--- NOTE | ~2023-12-30 | XR_ITS ---
EXAMINATION: XR ANKLE, LEFT XR FOOT, LEFT CLINICAL INFORMATION: Rheumatoid arthritis. COMPARISON: None available. TECHNIQUE: AP, lateral, and mortise views of the left ankle. AP, lateral, and oblique views of the left foot. FINDINGS: Bony alignment and mineralization are normal. The ankle mortise is intact. No fracture, dislocation or left ankle joint effusion is seen. Boehler's angle is normal. There is no calcaneal spur. No unusual bony erosive or productive change is seen. There is no focal soft tissue swelling, gas or foreign body. XR/XR ankle LT min 3V IMPRESSION: Normal left ankle and foot radiographs.
--- NOTE | ~2023-12-30 | XR_ITS ---
EXAMINATION: XR ANKLE, RIGHT XR FOOT, RIGHT CLINICAL INFORMATION: Rheumatoid arthritis. COMPARISON: None available. TECHNIQUE: AP, lateral, and mortise views of the right ankle. AP, lateral, and oblique views of the right foot. FINDINGS: Bony alignment and mineralization are normal. The ankle mortise is intact. No fracture, dislocation or left ankle joint effusion is seen. Boehler's angle is normal. There is no calcaneal spur. No unusual bony erosive or productive change is seen. There is no focal soft tissue swelling, gas or foreign body. XR/XR ankle RT min 3V IMPRESSION: Normal right ankle and foot radiographs.
--- NOTE | ~2023-12-30 | XR_ITS ---
EXAMINATION: XR KNEE, RIGHT XR KNEE, LEFT XR KNEE AP STANDING CLINICAL INFORMATION: Rheumatoid arthritis. COMPARISON: Radiographs dated 08/22/2021. TECHNIQUE: AP, lateral and sunrise views of the right knee were obtained. AP, lateral and sunrise views of the left knee were obtained. AP bilateral standing view of the knees was obtained. FINDINGS: RIGHT KNEE: No fracture or joint effusion. Alignment is anatomic. Joint spaces are maintained. No abnormal soft tissue calcification. LEFT KNEE: No fracture or joint effusion. Alignment is anatomic. Joint spaces are maintained. No abnormal soft tissue calcification. XR/XR knee standing BI IMPRESSION: Unremarkable bilateral knee radiographs.
== END 2023-12-30 11:54 | disposition home or self-care (01) ==
LOC: HO.XRAY 11:53
PROVIDERS: PCP Nurse Practitioner Family; Visit Provider Student in an Organized Health Care Education/Training Program
DX: M06.9 Rheumatoid arthritis, unspecified (principal)
CPT/HCPCS: 73560; 73562; 73564; 73565; 73610; 73630

== ENCOUNTER 2024-01-04 12:42 | Outpatient (AMB) | payer OTHER, SELFPAY ==
--- NOTE | 2024-01-04 12:53 | A.OFFVIS_ITS ---
Intake Vital Signs 01/04/24 12:54 Height 5 ft 3 in Weight 190 lb 14.725 oz BMI 33.8 BP 98/62 Blood Pressure Location Rt brachial Position Sitting Pulse 68 Pulse Source Pulse Oximeter Temp Source Skin Pulse Oximetry (%) 97 Oxygen Delivery Method Room Air Intake Visit Reasons: RA Intake Note: Patient last seen 11/11/23 presents today for follow up and test results. Business Development Assistant Required: No Accompanied by: Self / Same As Patient Allergies Iodinated Contrast Media [IV CONTRAST] Allergy (Intermediate, Verified 01/04/24 12:59) DIFFICULTY BREATHING dextran sulfate Adverse Reaction (Mild, Verified 01/04/24 12:59) Cough Medication List - Last Reconciled 01/04/24 by Farooq Ventura MD albuterol sulfate 90 mcg/actuation 2 puffs inhalation Q4-6H PRN 30 days baclofen 10 mg PO BID PRN beclomethasone dipropionate 80 mcg/actuation (Qvar RediHaler) 1 inh inhalation BID 30 days desogestrel-ethinyl estradiol 0.15-0.03 mg (Apri) 1 tab PO DAILY diclofenac sodium 1% 2 grams topical BID-TID docusate sodium 100 mg PO BID fluticasone propionate 50 mcg/actuation (Flonase Allergy Relief) 1 spray intranasal DAILY gabapentin 300 mg PO BID ketotifen fumarate 0.025%(0.035%) 1 drp ophthalmic (eye) Q8H lidocaine 5% 1 patch topical Q3D PRN loratadine (Allergy Relief (loratadine)) 10 mg PO DAILY 30 days meclizine 25 mg PO TID PRN 30 days midodrine 5 mg PO TID 90 days prednisone 15 mg (3 x 5 mg) PO TID sertraline 100 mg PO DAILY temazepam 7.5 mg PO BEDTIME PRN topiramate 25 mg PO BID PRN venlafaxine ER 37.5 mg PO DAILY Ventolin HFA 90 mcg/actuation (albuterol sulfate) 2 puffs inhalation Q4-6H PRN NS HPI HPI Comments History of Present Illness Details 38-year-old female returns for follow-up after completion of her diagnostic workup. She took prednisone as prescribed for 2 weeks without any benefit. She continues to have pain with little activity. Pain in hands, wrists, knees, back. Patient has difficulty falling and sleep. She has history of anxiety and depression. She follows up regularly with a psychologist and a psychiatrist Initial history: This is a 38-year-old female who presents for evaluation of polyarthralgias. Of note patient was recently diagnosed with myasthenia gravis and states that she is on pyridostigmine. She states that over the last 1-2 years she has been having multiple joint pain including wrists, hands, elbows, knees, shoulders. She has morning stiffness lasting around 1 hour. Intermittent swelling of her fingers. Also recently she notices that he can not tolerate the cold. She has to go out wearing gloves. In the cold her fingers change color to pale white and red. Sometimes she had to put her hands under warm water. She denies any history of DVT/PE. She denies any history of abortions or miscarriages. She is unaware of any family history of an autoimmune rheumatic disease. Denies any fevers or weight loss. [facility] Medical History Allergic rhinitis Back pain Class 1 obesity with body mass index (BMI) of 30.0 to 30.9 in adult COVID-19 vaccine series completed Neck pain Vitamin D deficiency Multinodular thyroid Ocular myasthenia gravis Right hand pain Umbilical hernia Abdominal pain, LUQ (left upper quadrant) Asthma Iron deficiency anemia Polyarthralgia Acute hemorrhoid Pre-syncope Dizziness Orthostatic hypotension Surgical History Hx of cholecystectomy Hx of eye surgery History of umbilical hernia repair (~07/02/21) History of esophagogastroduodenoscopy (EGD) History of thyroidectomy History of gastric surgery History of section Family History Mother Hypertension Diabetes Father No problems noted. Paternal Aunt Breast cancer Social History Household Members: Significant Other and Children Housing: Apartment Are you a primary healthcare sales representative to a significant other at home: No Do you presently have visiting nurse or other home services: No Alcohol intake: never Patient Tobacco Use Status: Never used Tobacco e-Cigarette/Vaping Use: Never Used Second Hand Smoke Exposure: No service: No Current occupational status: unemployed Cognitive needs: No Hearing needs: No Vision needs: Yes (glasses) Review of Systems Const Reports weight gain Musc Reports back pain, Reports arthralgias, Reports limited range of motion and Reports stiffness Skin/Breast Denies rash Physical Exam Vital Signs: BMI result Body Mass Index 33.8 Const General: cooperative, healthy appearing and comfortable Nutritional Appearance: obese Orientation/consciousness: patient oriented x3 Limitations: no limitations HEENT Head: Yes normocephalic and Yes atraumatic Mouth: moist mucous membranes Resp Effort & Inspection: normal respiratory effort and able to speak in complete sentences Auscultation: clear to auscultation bilaterally Cardio Rate: regular rate Skin General skin exam: no rashes or lesions noted Neuro General: patient oriented x3 Extrem Other: Bilateral tender wrists and pain with flexion and extension Multiple tender MCPs and PIP is bilaterally without swelling No elbow pain with flexion and extension Bilateral reduced shoulder abduction Mildly positive empty can test and Speed's test bilaterally Bilateral knee pain with full extension + crepitus bilateral Left ankle pain posteriorly without swelling Negative MTP squeeze test Normal nailfold capillaroscopy Results Reviewed Results Reviewed: Bilateral hand x-rays 05/2023? Right hand findings: Bone mineralization is normal.? Mild degenerative changes in the 1st carpometacarpal joint with joint space narrowing and hypertrophic change.? Mild degenerative changes with mild hypertrophic change in scattered interphalangeal joints.?? Left hand: bone mineralization is normal.? Mild degenerative changes in the 1st carpometacarpal joint with joint space narrowing and hypertrophic change.? Mild degenerative changes with mild hypertrophic change in scattered interphalangeal joints Assessment & Plan Assessment & Plan (1) Polyarthralgia: Code(s): M25.50 - Pain in unspecified joint Plan: This is a 38-year-old female who presents for evaluation of diffuse pain. Upon evaluation there are no swollen joints. She has few tender joints and few tender points. She has bilateral knee osteoarthritis and mild osteoarthritis of both hands. Labs show normal inflammatory markers, negative serology except for borderline positive rheumatoid factor and low C3 and C4 with negative BREE and negative sub serologies. Symptoms did not improve with prednisone. Clinical picture at this point is consistent with degenerative arthritis as well as fibromyalgia. Discussed management of fibromyalgia with patient. Is a noninflammatory, non- autoimmune central afferent processing disorder leading to a diffuse pain syndrome. Patient follows up regularly with a psychiatrist and a psychologist she is on gabapentin, venlafaxine and temazepam. Try to follow sleep hygiene practices. Consider a referral for a sleep study by her PCP. Patient would benefit from increased physical activity, either through formal physical therapy or by joining a gym. Advised patient that she should start activity slowly and increase as tolerated. Consider low-impact exercises such as walking, swimming, aqua therapy stretching, yoga. Follow-up as needed Plan I spent 27 minutes reviewing patient's chart, evaluating patient,, counseling patient and documenting in the chart Coding Level of Care Code Est Pt Level 4 (27589) Diagnoses Polyarthralgia M25.50
[2024-01-04 12:54] VITALS: BP 98/62; PULSE 68; O2SAT 97; BMI 33.8
== END 2024-01-04 13:20 | disposition home or self-care (01) ==
PROVIDERS: PCP Nurse Practitioner Family; Visit Provider Student in an Organized Health Care Education/Training Program
DX: M25.50 Pain in unspecified joint (principal)
CPT/HCPCS: 99214

== ENCOUNTER → 2024-01-04 12:42 | Outpatient (BNVA) | payer OTHER, SELFPAY | PROVIDERS: PCP Nurse Practitioner Family; Visit Provider Student in an Organized Health Care Education/Training Program | DX: M25.50 Pain in unspecified joint (principal) | CPT/HCPCS: 99212 ==

== ENCOUNTER 2024-01-11 10:11 | Outpatient (AMB) | payer OTHER, SELFPAY ==
--- NOTE | 2024-01-11 10:13 | MHC.OFFVISWM ---
Intake VS Expanded 01/11/24 10:19 BP 107/58 L Blood Pressure Location Rt brachial Blood Pressure Position Sitting Pulse 71 Pulse Source Pulse Oximeter Temp 98.7 F Temperature Source Temporal Artery Scan Pulse Oximetry 98 Oxygen Delivery Method Room Air Height 5 ft 3 in Weight 187 lb 12.6 oz BMI 33.3 Body Fat % 35.3 Body Fat Mass 66.2 Fat Free Mass 121.2 Visceral Fat Rating 7.0 Body Water % 46.2 Body Water Mass 86.6 Muscle Mass/Score 115.0 Basal Metabolic Rate/Score 1,658 Intake Visit Reasons: (OV) PO LSG 06/29/18 Allergies Iodinated Contrast Media [IV CONTRAST] Allergy (Intermediate, Verified 01/11/24 10:15) DIFFICULTY BREATHING dextran sulfate Adverse Reaction (Mild, Verified 01/11/24 10:15) Cough Medication List - Last Reconciled 01/11/24 by Martha Burgos PA-C albuterol sulfate 90 mcg/actuation 2 puffs inhalation Q4-6H PRN 30 days baclofen 10 mg PO BID PRN beclomethasone dipropionate 80 mcg/actuation (Qvar RediHaler) 1 inh inhalation BID 30 days diclofenac sodium 1% 2 grams topical BID-TID docusate sodium 100 mg PO BID fluticasone propionate 50 mcg/actuation (Flonase Allergy Relief) 1 spray intranasal DAILY gabapentin 300 mg PO BID ketotifen fumarate 0.025%(0.035%) 1 drp ophthalmic (eye) Q8H lidocaine 5% 1 patch topical Q3D PRN loratadine (Allergy Relief (loratadine)) 10 mg PO DAILY 30 days meclizine 25 mg PO TID PRN 30 days midodrine 5 mg PO TID 90 days multivit with min-folic acid 0.4 mg tabs PO prednisone 15 mg (3 x 5 mg) PO TID sertraline 100 mg PO DAILY temazepam 7.5 mg PO BEDTIME PRN topiramate 25 mg PO BID PRN venlafaxine ER 37.5 mg PO DAILY Ventolin HFA 90 mcg/actuation (albuterol sulfate) 2 puffs inhalation Q4-6H PRN NS HPI HPI Comments History of Present Illness Details 38 yo woman now 5.5 years s/p LSG. 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 Lowest weight 142 lbs? At her last appt with Marjorie in Jul 2023, she weight 178.9 - had been gaining weight and skipping meals with little exercise. The importance of regular healthy meals and exercise was reiterated with her at that time. No nausea, vomiting, abd pain or relfux. She has now regained about 40 lbs. [employer] Bureau Director - Connie She is concerned about her continue weight gain. Does not like sweet shakes, does not eat carbs. Has pain in her leg, sees psych tech for this and was told she needs to lose weight for this. Meal plan: wakes at 6am and bed at 10 pm. 8 am - 1 egg and 1 c vegetables or cheese and vegetables. tea no sugar 2-3 pm - palm of hand meat, chicken or fish and 1.5 cups vegetables. water 7 pm - individual yogurt plain states not any other food during the day. Getting about 49 grams protein per week. Exercise - treadmill - 4 days. speed 3.0, inline - 0, ? calories - time 30 minutes. [facility] Medical History Allergic rhinitis Back pain Class 1 obesity with body mass index (BMI) of 30.0 to 30.9 in adult COVID-19 vaccine series completed Neck pain Vitamin D deficiency Multinodular thyroid Ocular myasthenia gravis Right hand pain Umbilical hernia Abdominal pain, LUQ (left upper quadrant) Asthma Iron deficiency anemia Polyarthralgia Acute hemorrhoid Pre-syncope Dizziness Orthostatic hypotension Surgical History Hx of cholecystectomy Hx of eye surgery History of umbilical hernia repair (~07/02/21) History of esophagogastroduodenoscopy (EGD) History of thyroidectomy History of gastric surgery History of section Family History Mother Hypertension Diabetes Father No problems noted. Paternal Aunt Breast cancer Social History Household Members: Significant Other and Children Housing: Apartment Are you a primary patient care technician instructor to a significant other at home: No Do you presently have visiting nurse or other home services: No Alcohol intake: never Patient Tobacco Use Status: Never used Tobacco e-Cigarette/Vaping Use: Never Used Second Hand Smoke Exposure: No service: No Current occupational status: unemployed Cognitive needs: No Hearing needs: No Vision needs: Yes (glasses) Physical Exam Vital Signs: Last Vital Signs Temp 98.7 F 01/11/24 10:19 Pulse 71 01/11/24 10:19 BP 107/58 L 01/11/24 10:19 Pulse Ox 98 01/11/24 10:19 Oxygen Delivery Method Room Air 01/11/24 10:19 BMI result Body Mass Index 33.3 Assessment & Plan Assessment & Plan (1) Obesity (BMI 30.0-34.9): Code(s): E66.9 - Obesity, unspecified Plan: 5 years s/p LSG with weight gain, asking about conversion to GBP. We discussed that her weight gain is not due to anything being wrong with her surgery but is due to inadequate meal plan and exercise. She understands that she is not doing the same plans that she did when she was losing weight. She is now observing Ramadan - will be eating at 7pm and 4 am only but will start her new exercise program now. Will start the new meal plan after Ramadan ends around February 10. Meal plan - needs 80 grams of protein per day 9am - 2 egg whites and 1/4 c vegetables 2pm - 8 forks each protein and vegetable 7pm- 8 forks each protein and vegetable Exercise - alternate treadmill and bicycle 7 days per week treadmill - speed 3.0, incline at 3 for 300 calories bicycle - 300 calories weith 2 lb hand weights Next appt in 2 months (will be 1 month of bothe meal and exercise plans) Patient is obese and is not considered stable at this time. 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 (2) History of gastric surgery: Comment: 06/2018 gastric sleeve surgery Code(s): Z98.890 - Other specified postprocedural states Plan see above Coding Level of Care Code Est Pt Level 4 (97898) Diagnoses Obesity (BMI 30.0-34.9) E66.9 History of gastric surgery Z98.890
[2024-01-11 10:19] VITALS: BP 107/58; PULSE 71; TEMP 37.1; O2SAT 98; BMI 33.3
== END 2024-01-11 12:51 | disposition home or self-care (01) ==
PROVIDERS: PCP Nurse Practitioner Family; Visit Provider Physician Assistant
DX: E66.9 Obesity, unspecified (principal); Z68.33 Body mass index [BMI] 33.0-33.9, adult; Z90.3 Acquired absence of stomach [part of]; Z98.84 Bariatric surgery status
CPT/HCPCS: 99214

== ENCOUNTER → 2024-01-11 10:11 | Outpatient (BNVA) | payer OTHER, SELFPAY | PROVIDERS: PCP Nurse Practitioner Family; Visit Provider Physician Assistant | DX: E66.9 Obesity, unspecified (principal); Z68.33 Body mass index [BMI] 33.0-33.9, adult; Z98.890 Other specified postprocedural states | CPT/HCPCS: 99212 ==

== ENCOUNTER 2024-02-08 10:28 | Outpatient (AMB) | payer OTHER, SELFPAY ==
[2024-02-08 10:31] VITALS: BP 120/70; BMI 33.7
--- NOTE | 2024-02-08 10:31 | MHC.PC.OV ---
Vital Signs 02/08/24 10:31 Height 5 ft 3 in Weight 190 lb BMI 33.7 BP 120/70 Blood Pressure Location Lt brachial Position Sitting Intake Visit Reasons: myasthenia gravis Intake Note: Patient here for a follow up myasthenia gravis Therapy Coordinator Required: No Accompanied by: Daughter Allergies Iodinated Contrast Media [IV CONTRAST] Allergy (Intermediate, Verified 02/08/24 10:44) DIFFICULTY BREATHING dextran sulfate Adverse Reaction (Mild, Verified 02/08/24 10:44) Cough Medication List - Last Reconciled 02/08/24 by Lucia Rico MD albuterol sulfate 90 mcg/actuation 2 puffs inhalation Q4-6H PRN 30 days baclofen 10 mg PO BID PRN beclomethasone dipropionate 80 mcg/actuation (Qvar RediHaler) 1 inh inhalation BID 30 days diclofenac sodium 1% 2 grams topical BID-TID docusate sodium 100 mg PO BID fluticasone propionate 50 mcg/actuation (Flonase Allergy Relief) 1 spray intranasal DAILY gabapentin 300 mg PO BID ketotifen fumarate 0.025%(0.035%) 1 drp ophthalmic (eye) Q8H lidocaine 5% 1 patch topical Q3D PRN loratadine (Allergy Relief (loratadine)) 10 mg PO DAILY 30 days meclizine 25 mg PO TID PRN 30 days midodrine 5 mg PO TID 90 days multivit with min-folic acid 0.4 mg tabs PO sertraline 100 mg PO DAILY temazepam 7.5 mg PO BEDTIME PRN topiramate 25 mg PO BID PRN venlafaxine ER 37.5 mg PO DAILY Ventolin HFA 90 mcg/actuation (albuterol sulfate) 2 puffs inhalation Q4-6H PRN NS Tobacco use date assessed: 02/08/24 Dental Screening Dental Screen Date: 02/08/24 Did you have a dental visit in the last 12 months?: Yes Did you have a dental problem in the last 6 months where you did not have access to dental care?: No Was dental information given to patient?: Patient has dentist HPI HPI Comments History of Present Illness Details This is a 38-year-old female with ocular myasthenia gravis, mild recurrent major depression, orthostatic hypotension and chronic lumbar pain that comes today accompanied by daughter for follow-up on her conditions. Ocular myasthenia gravis is follow by Neurology and has been stable. Depression well control with SSRIs. Blood pressure well controlled with midodrine. Still has lumbar pain and her right foot bothers her when she stands and walks. So Rheumatology for this matter that recommended weight loss. Has weight management referral. Also has thyroid enlargement and an ultrasound of the thyroid will be ordered. [facility] Medical History (Updated 02/08/24 @ 10:55 by Lucia Rico MD) Allergic rhinitis Back pain Class 1 obesity with body mass index (BMI) of 30.0 to 30.9 in adult COVID-19 vaccine series completed Neck pain Vitamin D deficiency Multinodular thyroid Ocular myasthenia gravis Right hand pain Umbilical hernia Abdominal pain, LUQ (left upper quadrant) Asthma Iron deficiency anemia Polyarthralgia Acute hemorrhoid Pre-syncope Dizziness Orthostatic hypotension Surgical History Hx of cholecystectomy Hx of eye surgery History of umbilical hernia repair (~07/02/21) History of esophagogastroduodenoscopy (EGD) History of thyroidectomy History of gastric surgery History of section Family History Mother Hypertension Diabetes Father No problems noted. Paternal Aunt Breast cancer Social History Household Members: Significant Other and Children Housing: Apartment Are you a primary critical care unit nurse to a significant other at home: No Do you presently have visiting nurse or other home services: No Alcohol intake: never Patient Tobacco Use Status: Never used Tobacco e-Cigarette/Vaping Use: Never Used Second Hand Smoke Exposure: No service: No Current occupational status: unemployed Cognitive needs: No Hearing needs: No Vision needs: Yes (glasses) Questionnaire PHQ-9 Over the last 2 weeks, how often have you been bothered by any of the following problems? 1. Little interest or pleasure in doing things: not at all 2. Feeling down, depressed, or hopeless: not at all 3. Trouble falling or staying asleep, or sleeping too much: not at all 4. Feeling tired or having little energy: not at all 5. Poor appetite or overeating: not at all 6. Feeling bad about yourself - or that you are a failure or have let yourself or your family down: not at all 7. Trouble concentrating on things, such as reading the newspaper or watching television: not at all 8. Moving or speaking so slowly that other people could have noticed. Or the opposite - being so fidgety or restless that you have been moving around a lot more than usual: not at all 9. Thoughts that you would be better off or of hurting yourself in some way: not at all Total score: 0 Depression Screening Interpretation: Negative Depression Screening Done: Yes 33839 - PHQ-9 Billing: Yes Source: Developed by Drs. Betito Carter, Renata Daigle, Adam Bowman and colleagues, with an educational jame from [employer]. Thrive Questionnaire Date Thrive assessed: 02/08/24 I am a: Patient What is your living situation today?: I have a steady place to live Within the past 12 months, did the food you bought not last and you didn't have the money to get more?: Never true Within the past 12 months, did you worry whether your food would run out before you got money to buy more?: Never true Do you have trouble paying for medicines?: No Do you have trouble getting transportation to medical appointments?: No Do you have trouble paying your heating and electricity bill?: No Do you have trouble taking care of your child, family member or friend?: No Do you have trouble with day-to-day activities such as bathing, preparing meals, shopping, managing finances, etc.?: No Are you currently unemployed and looking for a job?: No Are you interested in more education?: No Please select the resources that you would like help with: None Currently or been in a relationship where the following occur: no concerns reported THRIVE Score: 0 AUDIT C Alcohol Use Questionnaire (AUDIT-C) 1. How often do you have a drink containing alcohol?: Never Total Score: 0 EPI-7 AMB Questionnaire EPI-7 Date EPI - 7 assessed: 02/08/24 Feeling nervous, anxious, or on edge: 0 = Not at all Not being able to stop or control worryin = Not at all Worrying too much about different things: 0 = Not at all Trouble relaxin = Not at all Being so restless that it is hard to sit still: 0 = Not at all Becoming easily annoyed or irritable: 0 = Not at all Feeling afraid as if something awful might happen: 0 = Not at all Total EPI-7 score (0-4 normal; 5-9 mild; 10-14 moderate; 15-21 severe): 0 Source: Developed by Drs. Betito Carter, Renata Daigle, Adam Bowman and colleagues, with an educational jame from [employer]. EPI-7 Assessment Billing EPI-7 Assessment Tool: EPI-7 Assessment 31545 Review of Systems Const All systems reviewed & are unremarkable except as noted in HPI and below Eyes Reports no additional complaints, Denies change in vision and Denies other visual disturbances Card Denies chest pain at rest, Denies chest pain with activity, Denies edema, Denies irregular heart rhythm, Denies claudication, Denies dyspnea, Denies dyspnea on exertion, Denies orthopnea, Denies paroxysmal nocturnal dyspnea and Denies slow heart rate Resp Denies cough, Denies dyspnea and Denies dyspnea on exertion GI Denies abdominal pain, Denies change in bowel habits, Denies excessive flatus, Denies nausea and Denies vomiting Denies urinary incontinence, Denies urinary hesitancy and Denies urinary urgency Physical exam (Primary Care) Vital Signs: Last Vital Signs BP 120/70 02/08/24 10:31 BMI result Body Mass Index 33.7 Tobacco/Smoking Status: Tobacco use Status Tobacco use date assessed 02/08/24 02/08/24 10:37 Patient Tobacco Use Status Never used Tobacco 02/08/24 10:37 e-Cigarette/Vaping Use Never Used 02/08/24 10:37 PHQ-9: PHQ-9 Score PHQ-9: Total score 0 02/08/24 10:46 Depression Screening Interpretation: Negative Thrive Assessment: Date of Thrive Assessment Date Thrive assessed 02/08/24 02/08/24 10:37 Currently or been in a relationship where the following occur: no concerns reported Neck Thyroid: diffusely enlarged Resp Effort & Inspection: normal respiratory effort Auscultation: clear to auscultation bilaterally Cardio Jugular venous distension: no JVD Rate: regular rate Rhythm: regular rhythm Heart sounds: S1 normal heart sound present and S2 normal heart sound present Extrem General: Yes full ROM Assessment and Plan Assessment & Plan (1) Mild recurrent major depression: Code(s): F33.0 - Major depressive disorder, recurrent, mild Plan: Continue SSRI (2) Ocular myasthenia gravis: Comment: This patient with diagnosis of ocular myasthenia gravis, seems to be stable at present, She is being followed by neurologist Dr. Kelley at [facility]. Code(s): G70.00 - Myasthenia gravis without (acute) exacerbation Plan: Continue follow-up with Neurology. (3) Orthostatic hypotension: Code(s): I95.1 - Orthostatic hypotension Plan: Continue midodrine. (4) Lumbar pain: Code(s): M54.50 - Low back pain, unspecified Plan: Continue gabapentin. Orders: Orders US thyroid Today E04.9 - Nontoxic goiter, unspecified Vitamin D 25-OH Total Today E55.9 - Vitamin D deficiency, unspecified Comprehensive [place]. Panel Fast 6 Months K59.09 - Other constipation Lipid Panel Today E66.9 - Obesity, unspecified Comprehensive [place]. Panel Fast Today E66.9 - Obesity, unspecified Thyroid Stimulating Hormone Today R79.89 - Other specified abnormal findings of blood chemistry Free T4 (Free Thyroxine) Today R79.89 - Other specified abnormal findings of blood chemistry Complete Blood Count Auto Diff Today J30.9 - Allergic rhinitis, unspecified Thyroid Stimulating Hormone 6 Months E04.9 - Nontoxic goiter, unspecified Free T4 (Free Thyroxine) 6 Months E04.9 - Nontoxic goiter, unspecified Lipid Panel 6 Months E66.9 - Obesity, unspecified Complete Blood Count Auto Diff 6 Months K59.09 - Other constipation Coding Level of Care Code Est Pt Level 4 (12539) Diagnoses Mild recurrent major depression F33.0 Ocular myasthenia gravis G70.00 Orthostatic hypotension I95.1 Lumbar pain M54.50 Additional Codes EPI-7 Assessment Billing - EPI-7 Assessment Tool: EPI-7 Assessment 94840 ([id number]) Time Spent (min) 22
== END 2024-02-08 10:57 | disposition home or self-care (01) ==
PROVIDERS: PCP Nurse Practitioner Family; Visit Provider Internal Medicine
DX: G70.00 Myasthenia gravis without (acute) exacerbation (principal); F33.0 Major depressive disorder, recurrent, mild; I95.1 Orthostatic hypotension; M54.50 Low back pain, unspecified
CPT/HCPCS: 99214

== ENCOUNTER 2024-03-01 10:31 | Outpatient (REF) | payer OTHER, SELFPAY | END 2024-03-01 10:32 | disposition home or self-care (01) | LOC: HO.US 10:31 | PROVIDERS: PCP Nurse Practitioner Family; Visit Provider Internal Medicine | DX: E04.9 Nontoxic goiter, unspecified (principal) | CPT/HCPCS: 76536 ==

== ENCOUNTER 2024-03-10 10:49 | Outpatient (AMB) | payer OTHER, SELFPAY ==
--- NOTE | 2024-03-10 10:58 | MHC.OFFVISWM ---
VS Expanded 03/10/24 11:04 BP 109/57 L Blood Pressure Location Rt brachial Blood Pressure Position Sitting Pulse 87 Pulse Source Pulse Oximeter Temp 98.0 F Temperature Source Temporal Artery Scan Pulse Oximetry 99 Oxygen Delivery Method Room Air Height 5 ft 3 in Weight 185 lb 3.2 oz BMI 32.8 Body Fat % 36.2 Body Fat Mass 67.0 Fat Free Mass 118.2 Visceral Fat Rating 8.0 Body Water % 45.6 Body Water Mass 84.4 Muscle Mass/Score 112.2 Basal Metabolic Rate/Score 2,655 Intake Visit Reasons: (OV) PO LSG 06/29/18 Elevator Starter Required: Yes Allergies Iodinated Contrast Media [IV CONTRAST] Allergy (Intermediate, Verified 03/10/24 11:00) DIFFICULTY BREATHING dextran sulfate Adverse Reaction (Mild, Verified 03/10/24 11:00) Cough Medication List - Last Reconciled 03/10/24 by CARTER Nuñez albuterol sulfate 90 mcg/actuation 2 puffs inhalation Q4-6H PRN 30 days baclofen 10 mg PO BID PRN beclomethasone dipropionate 80 mcg/actuation (Qvar RediHaler) 1 inh inhalation BID 30 days diclofenac sodium 1% 2 grams topical BID-TID docusate sodium 100 mg PO BID fluticasone propionate 50 mcg/actuation (Flonase Allergy Relief) 1 spray intranasal DAILY gabapentin 300 mg PO BID ketotifen fumarate 0.025%(0.035%) 1 drp ophthalmic (eye) Q8H lidocaine 5% 1 patch topical Q3D PRN loratadine (Allergy Relief (loratadine)) 10 mg PO DAILY 30 days meclizine 25 mg PO TID PRN 30 days midodrine 5 mg PO TID 90 days multivit with min-folic acid 0.4 mg 0.4 tabs PO DAILY sertraline 100 mg PO DAILY temazepam 7.5 mg PO BEDTIME PRN topiramate 25 mg PO BID PRN venlafaxine ER 37.5 mg PO DAILY Ventolin HFA 90 mcg/actuation (albuterol sulfate) 2 puffs inhalation Q4-6H PRN NS HPI Comments Details: This?is a?39?yo female who is s/p LSG 06/29/2018. Weight at last visit on 01/11/2024 was 187.6 pounds with a BMI of 33.3, weight today is 185.2 pounds, representing a 2.4 pound weight loss with a BMI today of 32.8.? No complaints of nausea, emesis, abdominal pain or reflux, or constipation. At last visit was given the following meal plan: needs 80 grams of protein per day 9am - 2 egg whites and 1/4 c vegetables 2pm - 8 forks each protein and vegetable 7pm- 8 forks each protein and vegetable takes MVI- not bariatric Exercise - alternate treadmill and bicycle 7 days per week treadmill - speed 3.0, incline at 3 for 300 calories bicycle - 300 calories weith 2 lb hand weights Pt reports difficulty eating dinnertime meal due to being too full. Was able to finish lunch and breakfast. Reports she did start exercise after adan. [facility] Medical History Allergic rhinitis Back pain Class 1 obesity with body mass index (BMI) of 30.0 to 30.9 in adult COVID-19 vaccine series completed Neck pain Vitamin D deficiency Multinodular thyroid Ocular myasthenia gravis Right hand pain Umbilical hernia Abdominal pain, LUQ (left upper quadrant) Asthma Iron deficiency anemia Polyarthralgia Acute hemorrhoid Pre-syncope Dizziness Orthostatic hypotension Surgical History Hx of cholecystectomy Hx of eye surgery History of umbilical hernia repair (~07/02/21) History of esophagogastroduodenoscopy (EGD) History of thyroidectomy History of gastric surgery History of section Family History Mother Hypertension Diabetes Father No problems noted. Paternal Aunt Breast cancer Social History Household Members: Significant Other and Children Housing: Apartment Are you a primary critical care nurse practitioner to a significant other at home: No Do you presently have visiting nurse or other home services: No Alcohol intake: never Patient Tobacco Use Status: Never used Tobacco e-Cigarette/Vaping Use: Never Used Second Hand Smoke Exposure: No service: No Current occupational status: unemployed Cognitive needs: No Hearing needs: No Vision needs: Yes (glasses) Assessment & Plan Assessment & Plan (1) Obesity (BMI 30.0-34.9): Code(s): E66.9 - Obesity, unspecified Category: Medical (2) History of gastric surgery: Comment: 06/2018 gastric sleeve surgery Code(s): Z98.890 - Other specified postprocedural states Category: Surgical Plan Pt still overall low on total protein intake if she is skipping dinner. Has used Isopure powder unflavored in the past but reports nausea with the sweetness . Will adjust meal plan to the followinam - 2 egg whites and 1/4 c vegetables 2pm - 1 cup plain Romanian yogurt 7pm- 8 forks each protein and vegetable Pt encouraged to eat protein first, then vegetable at evening meal. Recommended purchasing krzysztof MVI next time she is due to refill vitamins. Pt reports she will go to gift shop to purchase Celebrate. Reports hair loss, discussed importance of getting enough protein to help with this, may also use Biotin. RTC June for annual visit. Will order labs at that time. Patient is obese and is not considered stable at this time. I spent a total of 30 minutes reviewing/updating records, examining the patient and counseling the patient on weight management as detailed above.
[2024-03-10 11:04] VITALS: BP 109/57; PULSE 87; TEMP 36.7; O2SAT 99; BMI 32.8
== END 2024-03-10 11:29 | disposition home or self-care (01) ==
PROVIDERS: PCP Nurse Practitioner Family; Visit Provider Physician Assistant Surgical
DX: E66.9 Obesity, unspecified (principal); Z68.32 Body mass index [BMI] 32.0-32.9, adult; Z90.3 Acquired absence of stomach [part of]; Z98.84 Bariatric surgery status
CPT/HCPCS: 99214

== ENCOUNTER → 2024-03-10 10:49 | Outpatient (BNVA) | payer OTHER, SELFPAY | PROVIDERS: PCP Nurse Practitioner Family; Visit Provider Physician Assistant Surgical | DX: E66.9 Obesity, unspecified (principal); Z98.890 Other specified postprocedural states; Z68.32 Body mass index [BMI] 32.0-32.9, adult | CPT/HCPCS: 99212 ==

== ENCOUNTER 2024-05-16 11:34 | Outpatient (AMB) | payer OTHER, SELFPAY ==
[2024-05-16 11:41] VITALS: BP 96/60; PULSE 69; O2SAT 98; BMI 34.2
--- NOTE | 2024-05-16 11:41 | MHC.OFFVIS ---
Vital Signs 05/16/24 11:41 Height 5 ft 3 in Weight 192 lb 14.472 oz BMI 34.2 BP 96/60 Blood Pressure Location Lt brachial Position Sitting Pulse 69 Pulse Source Pulse Oximeter Pulse Oximetry (%) 98 Oxygen Delivery Method Room Air Intake Visit Reasons: Asthma Intake Note: pthere for follow up and sis not feeling to well today Planetarium Sky Show Technician Required: No Allergies Iodinated Contrast Media [IV CONTRAST] Allergy (Intermediate, Verified 05/16/24 11:48) DIFFICULTY BREATHING dextran sulfate Adverse Reaction (Mild, Verified 05/16/24 11:48) Cough Medication List - Last Reconciled 05/16/24 by Asiya Mcintyre MD albuterol sulfate 90 mcg/actuation 2 puffs inhalation Q4-6H PRN 30 days baclofen 10 mg PO BID PRN beclomethasone dipropionate 80 mcg/actuation (Qvar RediHaler) 1 inh inhalation BID 30 days diclofenac sodium 1% 2 grams topical BID-TID docusate sodium 100 mg PO BID fluticasone propionate 50 mcg/actuation (Flonase Allergy Relief) 1 spray intranasal DAILY gabapentin 300 mg PO BID ketotifen fumarate 0.025%(0.035%) 1 drp ophthalmic (eye) Q8H lidocaine 5% 1 patch topical Q3D PRN loratadine (Allergy Relief (loratadine)) 10 mg PO DAILY 30 days meclizine 25 mg PO TID PRN 30 days midodrine 5 mg PO TID 90 days multivit with min-folic acid 0.4 mg 0.4 tabs PO DAILY sertraline 100 mg PO DAILY temazepam 7.5 mg PO BEDTIME PRN topiramate 25 mg PO BID PRN venlafaxine ER 37.5 mg PO DAILY Ventolin HFA 90 mcg/actuation (albuterol sulfate) 2 puffs inhalation Q4-6H PRN NS Do you need a note to return to daycare/school/sports/work: No HPI HPI Asthma: Details: 39 years old female coming after 6 months for follow-up for her breathing problems. She does have bronchial asthma and using QVAR RediHaler 80 mcg 1 inhalation b.i.d. is helping. She also has Ventolin inhaler but does not need to use too much. Most of her complaint is related to nasal blockage in stuffiness, which is every day and almost all the times. She say is that she has discomfort on the left side due to blockage of the nose. She has been out of Flonase and loratadine. She has frequent bouts of cough. [facility] Medical History Allergic rhinitis Back pain Class 1 obesity with body mass index (BMI) of 30.0 to 30.9 in adult COVID-19 vaccine series completed Neck pain Vitamin D deficiency Multinodular thyroid Ocular myasthenia gravis Right hand pain Umbilical hernia Abdominal pain, LUQ (left upper quadrant) Asthma Iron deficiency anemia Polyarthralgia Acute hemorrhoid Pre-syncope Dizziness Orthostatic hypotension Surgical History Hx of cholecystectomy Hx of eye surgery History of umbilical hernia repair (~07/02/21) History of esophagogastroduodenoscopy (EGD) History of thyroidectomy History of gastric surgery History of section Family History Mother Hypertension Diabetes Father No problems noted. Paternal Aunt Breast cancer Social History Household Members: Significant Other and Children Housing: Apartment Are you a primary long term care administrator to a significant other at home: No Do you presently have visiting nurse or other home services: No Alcohol intake: never Patient Tobacco Use Status: Never used Tobacco e-Cigarette/Vaping Use: Never Used Second Hand Smoke Exposure: No service: No Current occupational status: unemployed Cognitive needs: No Hearing needs: No Vision needs: Yes (glasses) Review of Systems Const All systems reviewed & are unremarkable except as noted in HPI and below Reports fatigue and Reports weakness Eyes Reports other (Ptosis of eyelids when tired) ENT Reports nasal congestion (Intermittent) Card Denies chest pain, Reports syncope (History of pre syncopal attacks, due to postural hypotension), Denies irregular heart rhythm and Denies leg edema Resp Reports as per HPI GI Reports no additional complaints Reports no additional complaints Musc Reports back pain Skin/Breast Reports system reviewed and no additional complaints, except as documented Neuro Reports syncope (History of pre syncopal attacks, due to postural hypotension), Reports weakness and Reports other (History of myasthenia gravis) Psych Reports depression (Controlled with med) Endo Reports fatigue and Reports other (Mom thyroid nodules, borderline thyroid dysfunction) Physical Exam Vital Signs: Last Vital Signs Pulse 69 05/16/24 11:41 BP 96/60 05/16/24 11:41 Pulse Ox 98 05/16/24 11:41 Oxygen Delivery Method Room Air 05/16/24 11:41 BMI result Body Mass Index 34.2 Const General: comfortable, no acute distress, alert and awake Orientation/consciousness: patient oriented x3 HEENT Head: Yes normal to inspection General nose exam: No nasal polyps present, No nasal discharge present and Other nasal findings present (Mild to moderate bilateral nasal congestion) Face and sinus: Yes sinuses nontender Mouth: oropharynx normal Throat: Yes posterior oropharynx normal Eyes General: appearance normal, both eyes and all related structures Neck Neck: Yes normal visual inspection, Yes no lymphadenopathy, Yes trachea midline and Yes no JVD Thyroid: Thyroid normal Chest Chest palpation & inspection: normal inspection of the chest, normal palpation of entire chest wall and no tenderness Resp Effort & Inspection: normal respiratory effort and no cough Auscultation: clear to auscultation bilaterally, no crackles and no wheezes Cardio Palpation: normal PMI Rate: regular rate Rhythm: regular rhythm Heart sounds: no gallops and no murmurs Peripheral pulses: Peripheral pulses 2+ throughout GI Palpation (GI): Soft to palpation, nontender, No hepatosplenomegaly present and no masses Auscultation: normal bowel sounds Back/Spine/Pelvis Thoracic/Lumbar Spine: thoracic and lumbar spine normal to inspection Skin General skin exam: no rashes or lesions noted Neuro General: patient oriented x3 and no focal motor deficits Cranial nerves: Yes CN's II-XII intact bilaterally Extrem General: Yes normal to inspection, Yes no clubbing, cyanosis or edema and Yes no calf tenderness Psych Appearance: grossly normal and well kempt Speech and movement: Normal speech and movement present Assessment & Plan Assessment & Plan (1) Allergic rhinitis: Comment: HAS CHRONIC NASAL ALLERGIES MILD, MILD TO MODERATE . CURRENTLY HAVING PERSISTENT NASAL CONGESTION AND BLOCKAGE ALMOST ON A DAILY BASIS. Code(s): J30.9 - Allergic rhinitis, unspecified Category: Medical Plan: START USING LORATADINE 10 MG DAILY AND FLONASE NASAL SPRAY 2 SPRAY IN EACH NOSTRIL DAILY. (2) Asthma: Comment: Mild intermittent bronchial asthma, most likely allergic , secondary to environmental allergies. PULMONARY FUNCTION TEST WAS ESSENTIALLY NORMAL. HOWEVER CLINICALLY SHE SEEMS TO HAVE MILD INTERMITTENT BRONCHIAL ASTHMA AND IS BENEFITING FROM THE USE OF FLOVENT. Code(s): J45.909 - Unspecified asthma, uncomplicated Category: Medical Plan: QVAR-80 MCG 1 INHALATION B.I.D.. VENTOLIN 2 PUFFS Q 6 HOURS P.R.N.. Coding Level of Care Code Est Pt Level 3 (12620) Diagnoses Allergic rhinitis J30.9 Asthma J45.909
== END 2024-05-16 11:55 | disposition home or self-care (01) ==
PROVIDERS: PCP Nurse Practitioner Family; Visit Provider Internal Medicine
DX: J30.9 Allergic rhinitis, unspecified (principal); J45.909 Unspecified asthma, uncomplicated
CPT/HCPCS: 99213

== ENCOUNTER → 2024-05-16 11:34 | Outpatient (BNVA) | payer OTHER, SELFPAY | PROVIDERS: PCP Nurse Practitioner Family; Visit Provider Internal Medicine | DX: J45.909 Unspecified asthma, uncomplicated (principal) | CPT/HCPCS: 99212 ==

== ENCOUNTER 2024-06-15 12:39 | Outpatient (AMB) | payer OTHER, SELFPAY ==
--- NOTE | 2024-06-15 12:41 | A.OFFVIS_ITS ---
VS Expanded 06/15/24 12:49 BP 102/61 Blood Pressure Location Rt brachial Blood Pressure Position Sitting Pulse 68 Pulse Source Pulse Oximeter Temp 97.3 F Temperature Source Tympanic Pulse Oximetry 97 Oxygen Delivery Method Room Air Height 5 ft 3 in Weight 186 lb 12.8 oz BMI 33.1 Body Fat % 36.6 Body Fat Mass 68.4 Fat Free Mass 118.4 Visceral Fat Rating 8.0 Body Water % 45.3 Body Water Mass 84.6 Muscle Mass/Score 112.4 Basal Metabolic Rate/Score 1,624 Intake Visit Reasons: OV PO LSG 06/29/18 Lockstitch Collar Setter Required: Yes Allergies Iodinated Contrast Media [IV CONTRAST] Allergy (Intermediate, Verified 06/15/24 12:46) DIFFICULTY BREATHING dextran sulfate Adverse Reaction (Mild, Verified 06/15/24 12:46) Cough Medication List - Last Reconciled 06/15/24 by CARTER Nuñez albuterol sulfate 90 mcg/actuation 2 puffs inhalation Q4-6H PRN 30 days baclofen 10 mg PO BID PRN beclomethasone dipropionate 80 mcg/actuation (Qvar RediHaler) 1 inh inhalation BID 30 days diclofenac sodium 1% 2 grams topical BID-TID docusate sodium 100 mg PO BID fluticasone propionate 50 mcg/actuation (Flonase Allergy Relief) 2 sprays intranasal DAILY 30 days gabapentin 300 mg PO BID ketotifen fumarate 0.025%(0.035%) 1 drp ophthalmic (eye) Q8H lidocaine 5% 1 patch topical Q3D PRN loratadine (Allergy Relief (loratadine)) 10 mg PO DAILY 30 days meclizine 25 mg PO TID PRN 30 days midodrine 5 mg PO TID 90 days multivit with min-folic acid 0.4 mg 0.4 tabs PO DAILY sertraline 100 mg PO DAILY temazepam 7.5 mg PO BEDTIME PRN topiramate 25 mg PO BID PRN venlafaxine ER 37.5 mg PO DAILY Ventolin HFA 90 mcg/actuation (albuterol sulfate) 2 puffs inhalation Q4-6H PRN NS HPI Comments Details: This?is a?39?yo female who is s/p LSG 06/29/2018. Presents for 6 year post op visit. Weight at last visit on 03/10/2024 was 185.2 pounds with a BMI of 32.8, weight today is 186.8 pounds, representing a 1.6 pound weight gain with a BMI today of 33.3020969.? No complaints of nausea, emesis, abdominal pain or reflux. Occasional constipation, not taking anything for it. Recently saw one of her doctors for joint pain who felt that excess weight was worsening her issues. Asks about revision surgery. Present meal plan includes: 9am - 2 egg whites and 1/4 c vegetables 2pm - 1 cup plain Turkmen yogurt 7pm- 8 forks each protein and vegetable Exercise routine includes: having some back pain, receiving injections, walks daily [facility] Medical History Allergic rhinitis Back pain Class 1 obesity with body mass index (BMI) of 30.0 to 30.9 in adult COVID-19 vaccine series completed Neck pain Vitamin D deficiency Multinodular thyroid Ocular myasthenia gravis Right hand pain Umbilical hernia Abdominal pain, LUQ (left upper quadrant) Asthma Iron deficiency anemia Polyarthralgia Acute hemorrhoid Pre-syncope Dizziness Orthostatic hypotension Surgical History Hx of cholecystectomy Hx of eye surgery History of umbilical hernia repair (~07/02/21) History of esophagogastroduodenoscopy (EGD) History of thyroidectomy History of gastric surgery History of section Family History Mother Hypertension Diabetes Father No problems noted. Paternal Aunt Breast cancer Social History Household Members: Significant Other and Children Housing: Apartment Are you a primary rn wound care to a significant other at home: No Do you presently have visiting nurse or other home services: No Alcohol intake: never Patient Tobacco Use Status: Never used Tobacco e-Cigarette/Vaping Use: Never Used Second Hand Smoke Exposure: No service: No Current occupational status: unemployed Cognitive needs: No Hearing needs: No Vision needs: Yes (glasses) Assessment & Plan Assessment & Plan (1) Obesity: Code(s): E66.9 - Obesity, unspecified Category: Medical (2) History of gastric surgery: Comment: 06/2018 gastric sleeve surgery Code(s): Z98.890 - Other specified postprocedural states Category: Surgical Plan Fiber rx sent to pharmacy. Offered pt the option of transitioning back to a protein based plan primarily of shakes/bars to help with weight loss. She is interested in medication, recommended she reach out to her PCP. Try 2 Isopure unflavored drinks per day each 1 scoop in 8oz fluid (coffee, tea, water or water with herbs for soup broth). Meal of 6f/6f for lunch. Sent pt Isopure product info, encouraged her to also text me between appts with any questions. Labs ordered. PCP already has some active orders, added vitamin levels and insulin/A1C. RTC 6 months. I spent a total of 30 minutes reviewing/updating records, examining the patient and counseling the patient on weight management as detailed above. Orders: Orders Vitamin A Today Z98.890 - Other specified postprocedural states Vitamin D 25-OH Total Today Z98.890 - Other specified postprocedural states Insulin Today Z98.890 - Other specified postprocedural states Hemoglobin A1c Today Z98.890 - Other specified postprocedural states Zinc Today Z98.890 - Other specified postprocedural states Vitamin B1 Today Z98.890 - Other specified postprocedural states Vitamin B12 and Folate Today Z98.890 - Other specified postprocedural states Medications: New inulin 2 grams PO DAILY 90 tabs 3RF
[2024-06-15 12:49] VITALS: BP 102/61; PULSE 68; TEMP 36.3; O2SAT 97; BMI 33.1
== END 2024-06-15 13:10 | disposition home or self-care (01) ==
PROVIDERS: PCP Nurse Practitioner Family; Visit Provider Physician Assistant Surgical
DX: E66.9 Obesity, unspecified (principal); Z68.33 Body mass index [BMI] 33.0-33.9, adult; Z90.3 Acquired absence of stomach [part of]; Z98.84 Bariatric surgery status
CPT/HCPCS: 99214

== ENCOUNTER → 2024-06-15 12:39 | Outpatient (BNVA) | payer OTHER, SELFPAY | PROVIDERS: PCP Nurse Practitioner Family; Visit Provider Physician Assistant Surgical | DX: E66.9 Obesity, unspecified (principal); Z68.33 Body mass index [BMI] 33.0-33.9, adult; Z98.84 Bariatric surgery status | CPT/HCPCS: 99212 ==

== ENCOUNTER 2024-07-14 09:13 | Outpatient (REF) | payer OTHER, SELFPAY ==
[2024-07-14 09:58] LABS: Estimated Average Glucose 108 mg/dL; Hemoglobin A1c % 5.4 % (<6.0)
[2024-07-14 10:53] LABS: Insulin 9 uU/mL (2-29); Vitamin D 25-OH Total 28.5 ng/mL (>30)
[2024-07-14 11:03] LABS: Folate 15.1 ng/mL (> or = 4.0); Vitamin B12 315 pg/mL (200-900)
[2024-07-19 03:03] LABS: Vitamin A 77 mcg/dL (38-98)
[2024-07-19 13:23] LABS: Vitamin B1 14 nmol/L (8-30)
[2024-07-19 17:28] LABS: Zinc 66 mcg/dL (60-130)
== END 2024-07-14 09:14 | disposition home or self-care (01) ==
LOC: HO.LAB 09:13
PROVIDERS: PCP Internal Medicine; Referring Provider Internal Medicine; Visit Provider Physician Assistant Surgical
DX: Z98.890 Other specified postprocedural states (principal)
CPT/HCPCS: 36415; 82306; 82607; 82746; 83036; 83525; 84425; 84590; 84630

== ENCOUNTER 2024-08-08 13:05 | Outpatient (AMB) | payer OTHER, SELFPAY ==
--- NOTE | 2024-08-08 13:13 | MHC.PC.OV ---
Vital Signs 08/08/24 13:15 Height 5 ft 3 in Weight 185 lb BMI 32.8 BP 112/70 Blood Pressure Location Lt brachial Position Sitting Intake Visit Reasons: Annual Exam Intake Note: Patient here for an Annual Physical Exam Line Up Examiner Required: No Accompanied by: Daughter Allergies Iodinated Contrast Media [IV CONTRAST] Allergy (Intermediate, Verified 08/08/24 13:30) DIFFICULTY BREATHING dextran sulfate Adverse Reaction (Mild, Verified 08/08/24 13:30) Cough Medication List - Last Reconciled 08/08/24 by Lucia Rico MD albuterol sulfate 90 mcg/actuation 2 puffs inhalation Q4-6H PRN 30 days baclofen 10 mg PO BID PRN beclomethasone dipropionate 80 mcg/actuation (Qvar RediHaler) 1 inh inhalation BID 30 days cholecalciferol (vitamin D3) 50 mcg PO DAILY diclofenac sodium 1% 2 grams topical BID-TID docusate sodium 100 mg PO BID fluticasone propionate 50 mcg/actuation (Flonase Allergy Relief) 2 sprays intranasal DAILY 30 days gabapentin 300 mg PO BID inulin 2 grams PO DAILY ketotifen fumarate 0.025%(0.035%) 1 drp ophthalmic (eye) Q8H lidocaine 5% 1 patch topical Q3D PRN loratadine (Allergy Relief (loratadine)) 10 mg PO DAILY 30 days meclizine 25 mg PO TID PRN 30 days midodrine 5 mg PO TID 90 days multivit with min-folic acid 0.4 mg 0.4 tabs PO DAILY sertraline 100 mg PO DAILY temazepam 7.5 mg PO BEDTIME PRN topiramate 25 mg PO BID PRN venlafaxine ER 37.5 mg PO DAILY Ventolin HFA 90 mcg/actuation (albuterol sulfate) 2 puffs inhalation Q4-6H PRN NS Tobacco use date assessed: 02/08/24 Dental Screening Dental Screen Date: 02/08/24 HPI HPI Comments History of Present Illness Details This is a 39-year-old female with mild major depression that comes accompanied by daughter for her physical exam. Has not had a mammogram yet. Has OBGYN appointment for Pap smear this year. Complains of left costovertebral angle tenderness and I will order ultrasound of the kidneys. Depression stable with medications. Denies any chest pain or shortness on breath. She is obese with a BMI of 32.8 and had weight loss surgery but still struggles with weight. I will start her on Wegovy. [facility] Medical History (Updated 08/08/24 @ 16:53 by Lucia Rico MD) Allergic rhinitis Back pain Class 1 obesity with body mass index (BMI) of 30.0 to 30.9 in adult COVID-19 vaccine series completed Neck pain Vitamin D deficiency Multinodular thyroid Ocular myasthenia gravis Right hand pain Umbilical hernia Abdominal pain, LUQ (left upper quadrant) Asthma Iron deficiency anemia Polyarthralgia Acute hemorrhoid Pre-syncope Dizziness Orthostatic hypotension Surgical History Hx of cholecystectomy Hx of eye surgery History of umbilical hernia repair (~07/02/21) History of esophagogastroduodenoscopy (EGD) History of thyroidectomy History of gastric surgery History of section Family History Mother Hypertension Diabetes Father No problems noted. Paternal Aunt Breast cancer Social History Household Members: Significant Other and Children Housing: Apartment Are you a primary post anesthesia care unit nurse to a significant other at home: No Do you presently have visiting nurse or other home services: No Alcohol intake: never Patient Tobacco Use Status: Never used Tobacco e-Cigarette/Vaping Use: Never Used Second Hand Smoke Exposure: No service: No Current occupational status: unemployed Cognitive needs: No Hearing needs: No Vision needs: Yes (glasses) Questionnaire PHQ-9 Over the last 2 weeks, how often have you been bothered by any of the following problems? 1. Little interest or pleasure in doing things: several days 2. Feeling down, depressed, or hopeless: several days 3. Trouble falling or staying asleep, or sleeping too much: several days 4. Feeling tired or having little energy: several days 5. Poor appetite or overeating: several days 6. Feeling bad about yourself - or that you are a failure or have let yourself or your family down: not at all 7. Trouble concentrating on things, such as reading the newspaper or watching television: several days 8. Moving or speaking so slowly that other people could have noticed. Or the opposite - being so fidgety or restless that you have been moving around a lot more than usual: several days 9. Thoughts that you would be better off or of hurting yourself in some way: not at all Total score: 7 Depression Screening Interpretation: Positive Depression Screening Follow-up: Existing condition, In treatment and Follow-up Visit Requested Depression Screening Done: Yes 33121 - PHQ-9 Billing: Yes Source: Developed by Drs. Betito Carter, Renata Daigle, Adam Bowman and colleagues, with an educational jame from [employer]. Thrive Questionnaire Date Thrive assessed: 02/08/24 I am a: Parent/Caregiver What is your living situation today?: I have a steady place to live Within the past 12 months, did the food you bought not last and you didn't have the money to get more?: Never true Within the past 12 months, did you worry whether your food would run out before you got money to buy more?: Never true Do you have trouble paying for medicines?: No Do you have trouble getting transportation to medical appointments?: No Do you have trouble paying your heating and electricity bill?: No Do you have trouble taking care of your child, family member or friend?: No Do you have trouble with day-to-day activities such as bathing, preparing meals, shopping, managing finances, etc.?: Yes Are you currently unemployed and looking for a job?: No Are you interested in more education?: No Please select the resources that you would like help with: None Currently or been in a relationship where the following occur: I choose not to answer THRIVE Score: 0 AUDIT C Alcohol Use Questionnaire (AUDIT-C) 1. How often do you have a drink containing alcohol?: Never Total Score: 0 Score Reviewed/Action Taken: No EPI-7 AMB Questionnaire EPI-7 Date EPI - 7 assessed: 02/08/24 Feeling nervous, anxious, or on edge: 1 = Several days Not being able to stop or control worryin = Several days Worrying too much about different things: 1 = Several days Trouble relaxin = Several days Being so restless that it is hard to sit still: 1 = Several days Becoming easily annoyed or irritable: 1 = Several days Feeling afraid as if something awful might happen: 1 = Several days Total EPI-7 score (0-4 normal; 5-9 mild; 10-14 moderate; 15-21 severe): 7 Source: Developed by Drs. Betito Carter, Renata Daigle, Adam Bowman and colleagues, with an educational jame from [employer]. EPI-7 Assessment Billing EPI-7 Assessment Tool: EPI-7 Assessment 16460 Review of Systems Const All systems reviewed & are unremarkable except as noted in HPI and below Card Denies chest pain at rest, Denies chest pain with activity, Denies edema, Denies irregular heart rhythm, Denies claudication, Denies dyspnea, Denies dyspnea on exertion, Denies orthopnea, Denies paroxysmal nocturnal dyspnea and Denies slow heart rate Resp Denies cough, Denies dyspnea and Denies dyspnea on exertion GI Denies abdominal pain, Denies change in bowel habits, Denies excessive flatus, Denies nausea and Denies vomiting Physical exam (Primary Care) Vital Signs: Last Vital Signs BP 112/70 08/08/24 13:15 BMI result Body Mass Index 32.8 BMI Assessment/Plan discussion: High BMI High, discussed plan: lifestyle, weight reduction, dietary and physical activity Tobacco/Smoking Status: Tobacco use Status Tobacco use date assessed 02/08/24 08/08/24 13:14 Patient Tobacco Use Status Never used Tobacco 08/08/24 13:14 e-Cigarette/Vaping Use Never Used 08/08/24 13:14 PHQ-9: PHQ-9 Score PHQ-9: Total score 7 08/08/24 16:23 Depression Screening Interpretation: Positive Depression Screening Follow-up: Existing condition, In treatment and Follow-up Visit Requested Thrive Assessment: Date of Thrive Assessment Date Thrive assessed 02/08/24 08/08/24 13:14 Currently or been in a relationship where the following occur: I choose not to answer Resp Effort & Inspection: normal respiratory effort Auscultation: clear to auscultation bilaterally Cardio Jugular venous distension: no JVD Rate: regular rate Rhythm: regular rhythm Heart sounds: S1 normal heart sound present and S2 normal heart sound present General: Yes CVA tenderness Back/Spine/Pelvis Back: CVA tenderness Extrem General: Yes full ROM Office Procedures Flu Questionnaire Does the patient have a severe egg allergy?: No Does the patient have severe life threatening allergies?: No Does the patient have a fever or illness today?: No Has the patient ever had Guillain-[place] Syndrome?: No Has the patient ever had any past reaction to a flu shot?: No Immunizations Fluarix Triv [id number] (PF) 45 mcg (15 mcg x 3)/0.5 mL IM syringe Performing Provider: Lucia Rico MD [facility] Administered by: HENRIQUE Clark on 08/08/24 13:58 Dose Route Admin Location Dispensed Lot Number Expiration Date NDC Management Lead 0.5 mL IM Left Deltoid 0.5 mL [id number] 05/01/25 29700-931-23 Pouring Pounds VIS Given Date VIS Provided VIS Publication Date 08/08/24 Single Vaccine 21 Eligibility Eligibility Date Funding Source Not [facility] Eligible 08/08/24 Private Coding Level of Care Code Est Pt Level 3 (60126) Est Pt Prev Care 40-64y(03768) Diagnoses Physical exam Z00.00 Mild recurrent major depression F33.0 Obesity E66.9 Costovertebral angle tenderness M54.9 Additional Codes EPI-7 Assessment Billing - EPI-7 Assessment Tool: EPI-7 Assessment 91721 ([id number]) Time Spent (min) 34 Assessment & Plan Assessment & Plan (1) Physical exam: Code(s): Z00.00 - Encounter for general adult medical examination without abnormal findings Category: Medical Plan: Repeat in a year. (2) Mild recurrent major depression: Code(s): F33.0 - Major depressive disorder, recurrent, mild Category: Medical Plan: Continue SSRIs. (3) Obesity: Code(s): E66.9 - Obesity, unspecified Category: Medical Plan: Start Wegovy. BMI goal is less than 30. (4) Costovertebral angle tenderness: Code(s): M54.9 - Dorsalgia, unspecified Category: Medical Plan: Ultrasound renal ordered. Orders: Orders MM tomosynthesis screening BI Today Z12.31 - Encounter for screening mammogram for malignant neoplasm of breast Comprehensive [place]. Panel Fast Today E66.9 - Obesity, unspecified Lipid Panel Today E78.5 - Hyperlipidemia, unspecified US renal BI Today N20.0 - Calculus of kidney Influenza [id number] Immunization Today Z23 - Encounter for immunization Medications: New semaglutide (weight loss) (Wegovy) administer weeks 1 through 4 of therapy 0.25 mg (0.5 mL) subcut QWEEK 4 weeks 2 mL 0RF E66.9 - Obesity, unspecified Changed From docusate sodium 100 mg PO BID To docusate sodium 100 mg PO BID 90 days 180 caps 0RF Refilled cholecalciferol (vitamin D3) 50 mcg PO DAILY 90 caps 3RF
[2024-08-08 13:15] VITALS: BP 112/70; BMI 32.8
== END 2024-08-08 13:53 | disposition home or self-care (01) ==
PROVIDERS: PCP Internal Medicine; Visit Provider Internal Medicine
DX: Z00.00 Encounter for general adult medical examination without abnormal findings (principal); F33.0 Major depressive disorder, recurrent, mild; Z68.32 Body mass index [BMI] 32.0-32.9, adult; E66.811 Obesity, class 1; M54.9 Dorsalgia, unspecified; Z23 Encounter for immunization

== ENCOUNTER → 2024-08-08 13:05 | Outpatient (BNVA) | payer OTHER, SELFPAY | PROVIDERS: PCP Internal Medicine; Visit Provider Internal Medicine | DX: Z00.01 Encounter for general adult medical examination with abnormal findings (principal); F33.0 Major depressive disorder, recurrent, mild; E66.9 Obesity, unspecified; Z68.32 Body mass index [BMI] 32.0-32.9, adult; Z23 Encounter for immunization; M54.9 Dorsalgia, unspecified; Z71.3 Dietary counseling and surveillance | CPT/HCPCS: 90471; 90656; 96127; 99212; 99396 ==

== ENCOUNTER 2024-08-22 10:33 | Outpatient (REF) | payer OTHER, SELFPAY ==
[2024-08-22 11:24] LABS: MANUAL DIFF FLAG NO
[2024-08-22 12:27] LABS: Basophils Absolute Auto 0.1 X10*3/uL (0.0-0.2); Basophils Percent Auto 0.9 % (0-2); Eosinophils Absolute Auto 0.4 X10*3/uL (0.0-0.4); Eosinophils Percent Auto 5.2 % (0-4); Hematocrit 39.1 % (37.0-47.0); Hemoglobin 12.3 g/dl (12.0-16.0); Imm Gran Abs Auto 0.04 X10*3/uL (0.00-0.03); Imm Gran Pct Auto 0.6 % (0.0-0.4); Lymphocytes Absolute Auto 2.1 X10*3/uL (1.2-4.9); Lymphocytes Percent Auto 31.9 % (20-40); Mean Corpuscular HGB Conc 31.5 g/dl (31.0-35.0); Mean Corpuscular Hemoglobin 25.1 pg (27.0-33.0); Mean Corpuscular Volume 79.6 fL (80.0-98.0); Mean Platelet Volume 8.9 fL (9.4-12.3); Monocytes Absolute Auto 0.5 X10*3/uL (0.1-1.2); Monocytes Percent Auto 7.6 % (2-11); Neutrophils Absolute Auto 3.6 x10*3/uL (2.0-8.3); Neutrophils Percent Auto 53.8 % (45-73); Platelet Count 276 X10*3/uL (160-400); Red Blood Count 4.91 X10*6/uL (4.20-5.50); Red Cell Distribution Width 13.9 % (11.0-16.0); White Blood Count 6.7 X10*3/uL (4.8-10.8)
[2024-08-22 13:08] LABS: Alanine Aminotransferase 21 U/L (0-31); Albumin Level 4.2 g/dL (3.5-5.0); Alkaline Phosphatase 91 U/L (39-117); Anion Gap 9 (12-20); Aspartate Amino Transferase 23 U/L (5-31); Bilirubin Total 0.7 mg/dL (0.0-1.0); Blood Urea Nitrogen 11 mg/dL (9-16); Calcium 9.7 mg/dL (8.4-10.2); Carbon Dioxide 29 mmol/L (22-29); Chloride 106 mmol/L (96-108); Cholesterol 203 mg/dL (<200); Estimated Glomerular Filt Rate > 60; Glucose Fasting 97 mg/dL (60-99); HDL Cholesterol 48 mg/dL (>40); LDL Cholesterol Calculated 136 mg/dL (<100); Potassium 3.9 mmol/L (3.3-5.1); Sodium 140 mmol/L (135-145); Total Protein 7.2 g/dL (6.5-8.0); Triglycerides 97 mg/dL (<150)
[2024-08-22 13:27] LABS: Free T4 (Free Thyroxine) 1.05 ng/dL (0.71-1.85); Thyroid Stimulating Hormone 0.47 uIU/mL (0.32-4.0); Vitamin D 25-OH Total 26.3 ng/mL (>30)
== END 2024-08-22 10:34 | disposition home or self-care (01) ==
LOC: HO.US 10:33
PROVIDERS: PCP Internal Medicine; Visit Provider Internal Medicine
DX: N20.0 Calculus of kidney (principal); E55.9 Vitamin D deficiency, unspecified; K59.09 Other constipation; R79.89 Other specified abnormal findings of blood chemistry; J30.9 Allergic rhinitis, unspecified; E78.5 Hyperlipidemia, unspecified
CPT/HCPCS: 36415; 76775; 80053; 80061; 82306; 84439; 84443; 85025

== ENCOUNTER → 2024-09-21 12:00 | Outpatient (BNV) | payer OTHER, SELFPAY | PROVIDERS: PCP Internal Medicine; Visit Provider Internal Medicine | DX: Z12.31 Encounter for screening mammogram for malignant neoplasm of breast (principal) | CPT/HCPCS: 77063; 77067 ==

== ENCOUNTER 2024-09-21 12:02 | Outpatient (REF) | payer OTHER, SELFPAY ==
--- NOTE | ~2024-09-21 | MM_ITS ---
EXAMINATION: MM SCREENING DIGITAL BREAST TOMOSYNTHESIS, BILATERAL CLINICAL INFORMATION: Screening. Asymptomatic. COMPARISON: Mammography: Comparison is made with available priors TECHNIQUE: Digital breast mammography with tomosynthesis is performed in both the craniocaudal and mediolateral oblique views along with computer-aided detection (CAD). FINDINGS: There are scattered areas of fibroglandular density (ACR BI-RADS breast composition Category b). Left: There are no significant masses, abnormal calcifications, or other abnormalities. Right: Asymmetry retroareolar region posterior depth on MLO view. No suspicious calcifications or other abnormal findings. MM/MM tomosynthesis screening BI IMPRESSION: Additional imaging is recommended ASSESSMENT: BI-RADS BI-RADS 0 - Incomplete: Needs additional Imaging. RECOMMENDATION: 1. Additional views of the right breast 2. Targeted ultrasound if warranted after review of the additional views. 3. Radiology department staff will contact the patient for additional imaging. Additional Imaging required This examination should not preclude the clinical evaluation of a suspicious palpable abnormality. This patient's information was entered into a reminder system with a target due date for their next mammogram. Electronically signed by: Holly Can DO 09/28/2024 02:51 PM [facility]ERNAND[facility]
== END 2024-09-21 12:03 | disposition home or self-care (01) ==
LOC: HO.MAMMO 12:02
PROVIDERS: PCP Internal Medicine; Visit Provider Internal Medicine
DX: Z12.31 Encounter for screening mammogram for malignant neoplasm of breast (principal)
CPT/HCPCS: 77063; 77067

== ENCOUNTER → 2024-10-05 12:00 | Outpatient (BNV) | payer OTHER, SELFPAY | PROVIDERS: PCP Internal Medicine; Visit Provider Internal Medicine | DX: R92.331 Mammographic heterogeneous density, right breast (principal); R92.2 Inconclusive mammogram | CPT/HCPCS: 76642; 77061; 77065 ==

== ENCOUNTER 2024-10-05 12:01 | Outpatient (REF) | payer OTHER, SELFPAY ==
--- NOTE | ~2024-10-05 | US_ITS ---
EXAMINATION: MM DIAGNOSTIC DIGITAL BREAST TOMOSYNTHESIS, RIGHT Limited right ultrasound. CLINICAL INFORMATION: Called from screening for asymmetry in the right breast on MLO view. COMPARISON: Mammography: Comparison is made with available prior examinations. TECHNIQUE: Digital breast tomosynthesis is performed in both the craniocaudal and mediolateral oblique views along with computer-aided detection (CAD). Synthesized 2D images are generated from the tomosynthesis. Limited right breast ultrasound. FINDINGS: The breasts are heterogeneously dense, which may obscure small masses (ACR BI-RADS breast composition Category c). Asymmetry retroareolar region on MLO view partially effaces on additional imaging projections. No suspicious calcifications or other abnormal findings. Targeted color Doppler ultrasound scanning in the right breast the entire lateral breast superior breast and medial breast from 8-4 o'clock demonstrates normal fibroglandular breast tissue. US/US breast RT limited mamm only IMPRESSION: Right breast asymmetry retroareolar region without sonographic correlate. Recommend six-month follow-up mammography for further evaluation of stability. ASSESSMENT: BI-RADS BI-RADS 3 - Probably benign finding(s) - 6 month follow-up suggested RECOMMENDATION: 1 year F/U (accession [id number]), 6 Month F/U (accession [id number]) Results were provided to the patient at time of visit by the technologist. This patient's information was entered into a reminder system with a target due date for their next mammogram. Electronically signed by: Holly Can DO 10/05/2024 01:21 PM [facility]
--- NOTE | ~2024-10-05 | MM_ITS ---
EXAMINATION: MM DIAGNOSTIC DIGITAL BREAST TOMOSYNTHESIS, RIGHT Limited right ultrasound. CLINICAL INFORMATION: Called from screening for asymmetry in the right breast on MLO view. COMPARISON: Mammography: Comparison is made with available prior examinations. TECHNIQUE: Digital breast tomosynthesis is performed in both the craniocaudal and mediolateral oblique views along with computer-aided detection (CAD). Synthesized 2D images are generated from the tomosynthesis. Limited right breast ultrasound. FINDINGS: The breasts are heterogeneously dense, which may obscure small masses (ACR BI-RADS breast composition Category c). Asymmetry retroareolar region on MLO view partially effaces on additional imaging projections. No suspicious calcifications or other abnormal findings. Targeted color Doppler ultrasound scanning in the right breast the entire lateral breast superior breast and medial breast from 8-4 o'clock demonstrates normal fibroglandular breast tissue. MM/MM tomosynthesis added views R IMPRESSION: Right breast asymmetry retroareolar region without sonographic correlate. Recommend six-month follow-up mammography for further evaluation of stability. ASSESSMENT: BI-RADS BI-RADS 3 - Probably benign finding(s) - 6 month follow-up suggested RECOMMENDATION: 1 year F/U (accession [id number]), 6 Month F/U (accession [id number]) Results were provided to the patient at time of visit by the technologist. This patient's information was entered into a reminder system with a target due date for their next mammogram. Electronically signed by: Holly Can DO 10/05/2024 01:21 PM [facility]
== END 2024-10-05 12:02 | disposition home or self-care (01) ==
LOC: HO.MAMMO 12:01
PROVIDERS: PCP Internal Medicine; Visit Provider Internal Medicine
DX: N64.89 Other specified disorders of breast (principal)
CPT/HCPCS: 76642; 77061; 77065

== ENCOUNTER → 2024-12-08 10:25 | Outpatient (BNVA) | payer OTHER, SELFPAY | PROVIDERS: PCP Internal Medicine; Visit Provider Internal Medicine | DX: E66.9 Obesity, unspecified (principal); J45.909 Unspecified asthma, uncomplicated; Z98.84 Bariatric surgery status; Z68.35 Body mass index [BMI] 35.0-35.9, adult | CPT/HCPCS: 99212 ==

== ENCOUNTER 2024-12-08 11:05 | Outpatient (AMB) | payer OTHER, SELFPAY ==
--- NOTE | 2024-12-08 11:07 | MHC.OFFVISWM ---
VS Expanded 12/08/24 11:12 BP 108/67 Blood Pressure Location Rt brachial Blood Pressure Position Sitting Pulse 78 Pulse Source Pulse Oximeter Temp 97.7 F Temperature Source Temporal Artery Scan Pulse Oximetry 99 Oxygen Delivery Method Room Air Height 5 ft 3 in Weight 178 lb 12.8 oz BMI 31.7 Body Fat % 35.4 Body Fat Mass 63.2 Fat Free Mass 115.6 Visceral Fat Rating 7.0 Body Water % 46.2 Body Water Mass 82.6 Muscle Mass/Score 109.6 Basal Metabolic Rate/Score 1,580 Intake Visit Reasons: OV PO LSG 06/29/18 Allergies Iodinated Contrast Media [IV CONTRAST] Allergy (Intermediate, Verified 12/08/24 11:10) DIFFICULTY BREATHING dextran sulfate Adverse Reaction (Mild, Verified 12/08/24 11:10) Cough Medication List - Last Reconciled 12/08/24 by CARTER Nuñez albuterol sulfate 90 mcg/actuation 2 puffs inhalation Q4-6H PRN 30 days atorvastatin 10 mg PO BEDTIME 90 days baclofen 10 mg PO BID PRN beclomethasone dipropionate 80 mcg/actuation (Qvar RediHaler) 1 inh inhalation BID 30 days cholecalciferol (vitamin D3) 50 mcg PO DAILY diclofenac sodium 1% 2 grams topical BID-TID docusate sodium 100 mg PO BID 90 days fluticasone propionate 50 mcg/actuation 2 sprays intranasal DAILY gabapentin 300 mg PO BID inulin 2 grams PO DAILY ketotifen fumarate 0.025%(0.035%) 1 drp ophthalmic (eye) Q8H lidocaine 5% 1 patch topical Q3D PRN meclizine 25 mg PO TID PRN 30 days midodrine 5 mg PO TID 90 days sertraline 100 mg PO DAILY temazepam 7.5 mg PO BEDTIME PRN tirzepatide (weight loss) (Zepbound) 2.5 mg (0.5 mL) subcut QWEEK 4 weeks topiramate 25 mg PO BID PRN Ventolin HFA 90 mcg/actuation (albuterol sulfate) 2 puffs inhalation Q4-6H PRN NS HPI Comments Details: This?is a?39?yo female who is s/p LSG 06/29/2018. Presents for 6.5 year post op visit. Weight at last visit on 06/15/2024 was 186.8 pounds with a BMI of 33.1, weight today is 178.8 pounds, representing an 8 pound weight loss with a BMI today of 31.7.? Pt was started on Zepbound. Tolerating without issues. Has been on for 2 months. Initially took Wegovy, changed after 1 month. Present meal plan includes: 2 Isopure unflavored drinks per day each 1 scoop in 8oz fluid (coffee, tea, water or water with herbs for soup broth). Meal of 6f/6f for lunch. - given at last office visit Exercise routine includes: walks daily Have you been diagnosed with reflux (GERD)? no Score 0-5: 0=no symptoms, 1=noticeable but not bothersome (slight or occasional), 2=noticeable, bothersome but not daily, 3=bothersome and daily, 4=affects daily activities, 5=incapacitating, unable to do daily activities How bad is the heartburn: 2 Heartburn when lying down: 0 Heartburn when standing up: 0 Heartburn after meals: 2 Does heartburn change your diet: 1 Does heartburn wake you up from sleep: 0 Do you have difficulty swallowin Do you have pain with swallowin If you take medication for reflux, does this affect your daily life: 0 Total score: 12 PFSH Medical History Allergic rhinitis Back pain Class 1 obesity with body mass index (BMI) of 30.0 to 30.9 in adult COVID-19 vaccine series completed Neck pain Vitamin D deficiency Multinodular thyroid Ocular myasthenia gravis Right hand pain Umbilical hernia Abdominal pain, LUQ (left upper quadrant) Asthma Iron deficiency anemia Polyarthralgia Acute hemorrhoid Pre-syncope Dizziness Orthostatic hypotension Surgical History Hx of cholecystectomy Hx of eye surgery History of umbilical hernia repair (~07/02/21) History of esophagogastroduodenoscopy (EGD) History of thyroidectomy History of gastric surgery History of section Family History Mother Hypertension Diabetes Father No problems noted. Paternal Aunt Breast cancer Social History (Reviewed 12/08/24 @ 11:11 by GRANT Guevara Household Members: Significant Other and Children Housing: Apartment Are you a primary plant health care technician to a significant other at home: No Do you presently have visiting nurse or other home services: No Alcohol intake: never Patient Tobacco Use Status: Never used Tobacco e-Cigarette/Vaping Use: Never Used Second Hand Smoke Exposure: No service: No Current occupational status: unemployed Cognitive needs: No Hearing needs: No Vision needs: Yes (glasses) Assessment & Plan Assessment & Plan (1) Obesity: Code(s): E66.9 - Obesity, unspecified Category: Medical (2) History of gastric surgery: Comment: 06/2018 gastric sleeve surgery Code(s): Z98.890 - Other specified postprocedural states Category: Medical Plan Pt doing well on Zepbound, will continue. Discussed the importance of adequate protein intake while on this med, pt reports she is still taking two protein drinks per day. Able to exercise at home, has a gym. RTC 6 months. I spent a total of 30 minutes reviewing/updating records, examining the patient and counseling the patient on weight management as detailed above.
[2024-12-08 11:12] VITALS: BP 108/67; PULSE 78; TEMP 36.5; O2SAT 99; BMI 31.7
== END 2024-12-08 11:34 | disposition home or self-care (01) ==
LOC: HO.HBS 11:05
PROVIDERS: PCP Internal Medicine; Visit Provider Physician Assistant Surgical
DX: E66.812 Obesity, class 2 (principal); Z68.35 Body mass index [BMI] 35.0-35.9, adult; Z90.3 Acquired absence of stomach [part of]; Z98.84 Bariatric surgery status
CPT/HCPCS: 99214; G2211

== ENCOUNTER 2025-02-06 10:46 | Outpatient (AMB) | payer OTHER, SELFPAY ==
[2025-02-06 10:51] VITALS: BP 110/64; BMI 31.4
--- NOTE | 2025-02-06 10:51 | MHC.PC.OV ---
Vital Signs 02/06/25 10:51 Height 5 ft 3 in Weight 177 lb BMI 31.4 BP 110/64 Blood Pressure Location Lt brachial Position Sitting Intake Visit Reasons: depression, ocular myasthenia gravis Drilling Fluids Specialist Required: No Accompanied by: Daughter Allergies Iodinated Contrast Media [IV CONTRAST] Allergy (Intermediate, Verified 02/06/25 11:02) DIFFICULTY BREATHING dextran sulfate Adverse Reaction (Mild, Verified 02/06/25 11:02) Cough Medication List - Last Reconciled 02/06/25 by Lucia Rico MD albuterol sulfate 90 mcg/actuation 2 puffs inhalation Q4-6H PRN 30 days atorvastatin 10 mg PO BEDTIME 90 days baclofen 10 mg PO BID PRN beclomethasone dipropionate 80 mcg/actuation (Qvar RediHaler) 1 inh inhalation BID 30 days cholecalciferol (vitamin D3) 50 mcg PO DAILY diclofenac sodium 1% 2 grams topical BID-TID docusate sodium 100 mg PO BID 90 days fluticasone propionate 50 mcg/actuation 2 sprays intranasal DAILY gabapentin 300 mg PO BID inulin 2 grams PO DAILY ketotifen fumarate 0.025%(0.035%) 1 drp ophthalmic (eye) Q8H lidocaine 5% 1 patch topical Q3D PRN meclizine 25 mg PO TID PRN 30 days midodrine 5 mg PO TID 90 days sertraline 100 mg PO DAILY temazepam 7.5 mg PO BEDTIME PRN tirzepatide 5 mg (0.5 mL) subcut QWEEK 4 weeks topiramate 25 mg PO BID PRN Ventolin HFA 90 mcg/actuation (albuterol sulfate) 2 puffs inhalation Q4-6H PRN NS Tobacco use date assessed: 02/06/25 Dental Screening Dental Screen Date: 02/06/25 Did you have a dental visit in the last 12 months?: Yes Was dental information given to patient?: Patient has dentist HPI HPI Comments History of Present Illness Details The patient is a 39-year-old female presenting with follow-up concerns regarding her chronic conditions. She has myasthenia gravis, managed by [facility], and reports issues with her vision manifesting as blurriness during the middle of the day. Memory lapses like forgetting object placements are associated with her medication regimen, potentially linked to gabapentin. She has a history of both hypotension previously treated with midodrine, which she discontinued due to increased blood pressure levels. Since stopping midodrine, she experienced elevated blood pressure at rest with a peak of 165 mmHg. Her depressive symptoms are under control with sertraline. Other health issues include dizziness treated with meclizine, constipation managed with docusate, and past use of Topamax for migraines. Current medications include atorvastatin, baclofen, and vitamin D. Cholesterol monitoring is planned through upcoming bloodwork, acknowledging previous management efforts. Discussions are ongoing about the possible cognitive side effects of gabapentin necessitating potential revision in her treatment approach. [facility] Medical History Allergic rhinitis Back pain Class 1 obesity with body mass index (BMI) of 30.0 to 30.9 in adult COVID-19 vaccine series completed Neck pain Vitamin D deficiency Multinodular thyroid Ocular myasthenia gravis Right hand pain Umbilical hernia Abdominal pain, LUQ (left upper quadrant) Asthma Iron deficiency anemia Polyarthralgia Acute hemorrhoid Pre-syncope Dizziness Orthostatic hypotension Surgical History Hx of cholecystectomy Hx of eye surgery History of umbilical hernia repair (~07/02/21) History of esophagogastroduodenoscopy (EGD) History of thyroidectomy History of gastric surgery History of section Family History Mother Hypertension Diabetes Father No problems noted. Paternal Aunt Breast cancer Social History Household Members: Significant Other and Children Housing: Apartment Are you a primary career development associate to a significant other at home: No Do you presently have visiting nurse or other home services: No Alcohol intake: never Patient Tobacco Use Status: Never used Tobacco e-Cigarette/Vaping Use: Never Used Second Hand Smoke Exposure: No service: No Current occupational status: unemployed Cognitive needs: No Hearing needs: No Vision needs: Yes (glasses) Questionnaire PHQ-9 Over the last 2 weeks, how often have you been bothered by any of the following problems? 1. Little interest or pleasure in doing things: not at all 2. Feeling down, depressed, or hopeless: several days 3. Trouble falling or staying asleep, or sleeping too much: not at all 4. Feeling tired or having little energy: not at all 5. Poor appetite or overeating: not at all 6. Feeling bad about yourself - or that you are a failure or have let yourself or your family down: not at all 7. Trouble concentrating on things, such as reading the newspaper or watching television: not at all 8. Moving or speaking so slowly that other people could have noticed. Or the opposite - being so fidgety or restless that you have been moving around a lot more than usual: not at all 9. Thoughts that you would be better off or of hurting yourself in some way: not at all Total score: 1 Source: Developed by Drs. Betito Carter, Renata Daigle, Adam Bowman and colleagues, with an educational jame from [employer]. Thrive Questionnaire Date Thrive assessed: 02/06/25 I am a: Patient What is your living situation today?: I have a steady place to live Within the past 12 months, did the food you bought not last and you didn't have the money to get more?: Never true Within the past 12 months, did you worry whether your food would run out before you got money to buy more?: Never true Do you have trouble paying for medicines?: No Do you have trouble getting transportation to medical appointments?: No Do you have trouble paying your heating and electricity bill?: No Do you have trouble taking care of your child, family member or friend?: No Do you have trouble with day-to-day activities such as bathing, preparing meals, shopping, managing finances, etc.?: No Are you currently unemployed and looking for a job?: No Are you interested in more education?: No Please select the resources that you would like help with: None Currently or been in a relationship where the following occur: No concerns reported THRIVE Score: 0 AUDIT C Alcohol Use Questionnaire (AUDIT-C) 1. How often do you have a drink containing alcohol?: Never Total Score: 0 EPI-7 AMB Questionnaire PEI-7 Date EPI - 7 assessed: 02/06/25 Feeling nervous, anxious, or on edge: 1 = Several days Not being able to stop or control worryin = Not at all Worrying too much about different things: 0 = Not at all Trouble relaxin = Not at all Being so restless that it is hard to sit still: 0 = Not at all Becoming easily annoyed or irritable: 0 = Not at all Feeling afraid as if something awful might happen: 0 = Not at all Total EPI-7 score (0-4 normal; 5-9 mild; 10-14 moderate; 15-21 severe): 1 Source: Developed by Drs. Betito Carter, Renata Daigle, Adam Bowman and colleagues, with an educational jame from [employer]. Review of Systems Const All systems reviewed & are unremarkable except as noted in HPI and below Card Denies chest pain at rest, Denies chest pain with activity, Denies edema, Denies irregular heart rhythm, Denies claudication, Denies dyspnea, Denies dyspnea on exertion, Denies orthopnea, Denies paroxysmal nocturnal dyspnea and Denies slow heart rate Resp Denies cough, Denies dyspnea and Denies dyspnea on exertion GI Denies abdominal pain, Denies change in bowel habits, Denies excessive flatus, Denies nausea and Denies vomiting Neuro Denies lack of coordination Physical exam (Primary Care) Vital Signs: Last Vital Signs BP 110/64 02/06/25 10:51 BMI result Body Mass Index 31.4 BMI Assessment/Plan discussion: High BMI High, discussed plan: lifestyle, weight reduction, dietary and physical activity Tobacco/Smoking Status: Tobacco use Status Tobacco use date assessed 02/06/25 02/06/25 11:00 Patient Tobacco Use Status Never used Tobacco 02/06/25 10:53 e-Cigarette/Vaping Use Never Used 02/06/25 10:53 PHQ-9: PHQ-9 Score PHQ-9: Total score 1 02/06/25 11:05 Thrive Assessment: Date of Thrive Assessment Date Thrive assessed 02/06/25 02/06/25 10:53 Currently or been in a relationship where the following occur: No concerns reported Resp Effort & Inspection: normal respiratory effort Auscultation: clear to auscultation bilaterally Cardio Jugular venous distension: no JVD Rate: regular rate Rhythm: regular rhythm Heart sounds: S1 normal heart sound present and S2 normal heart sound present Extrem General: Yes full ROM Coding Level of Care Code Est Pt Level 4 (97313) Complex EM visit Add On G2211 Diagnoses Mild recurrent major depression F33.0 Chronic constipation K59.09 Ocular myasthenia gravis G70.00 Orthostatic hypotension I95.1 Dizziness R42 Time Spent (min) 24 Assessment & Plan Assessment & Plan (1) Mild recurrent major depression: Code(s): F33.0 - Major depressive disorder, recurrent, mild Category: Medical (2) Chronic constipation: Comment: Consistent with bowel regimen, increase water intake, she will give trial to Citrucel 500 milligrams b.i.d. Will wait for input from Hematology Code(s): K59.09 - Other constipation Category: Medical (3) Ocular myasthenia gravis: Comment: This patient with diagnosis of ocular myasthenia gravis, seems to be stable at present, She is being followed by neurologist Dr. Kelley at [facility]. Code(s): G70.00 - Myasthenia gravis without (acute) exacerbation Category: Medical (4) Orthostatic hypotension: Code(s): I95.1 - Orthostatic hypotension Category: Medical (5) Dizziness: Code(s): R42 - Dizziness and giddiness Category: Medical Plan For the management of myasthenia gravis, continued follow-up with [facility] is essential to address medication-related concerns, primarily the cognitive effects of gabapentin. Observations about blood pressure warrant a review and potential adjustment strategy for her hypertension control. Her depression remains stable under sertraline, and further management is needed only if symptoms change. Repeat cholesterol assessment will inform future atorvastatin therapy adjustments. Dizziness and constipation will continue to be treated with current medications. While migraines are presently untreated, monitoring for recurrence will guide future therapy decisions. Plan for follow-up in three weeks, particularly concerning hypertension and cognitive effects of medication. Patient was informed and verbally consented to the use of an ambient scribe for clinic note documentation during this visit. I discussed with the patient her chronic conditions, focusing on myasthenia gravis coordination with [facility] and management of any associated cognitive effects potentially traced to gabapentin. We reviewed her hypertension post-midodrine alterations and agreed on regular monitoring to guide future treatment, including potential medication adjustments if elevated readings persist. Depression management with sertraline appears satisfactory, and cholesterol assessment is scheduled for this week to evaluate atorvastatin's efficacy. We emphasized the importance of follow-up in three weeks to reassess blood pressure and continue managing the complex interplay of her medications. Orders: Orders Lipid Panel Today E78.5 - Hyperlipidemia, unspecified Comprehensive [place]. Panel Fast Today E66.9 - Obesity, unspecified Medications: Discontinued midodrine do not give last dose of day after 6PM or within 4 hrs of bedtime Discontinued Reason: Patient Completed Course 5 mg PO TID 90 days 270 tabs 1RF Patient Instructions: - Stop using midodrine as instructed due to elevated blood pressure. - Continue taking sertraline for depression management. - Follow the existing regimen for any dizziness or constipation using prescribed medications. - Perform scheduled cholesterol bloodwork this week and monitor symptoms. - Note any increase in migraine frequency or intensity for further evaluation. - Attend a three-week follow-up appointment for blood pressure reassessment. - Discuss any memory or cognitive issues during neurology visits. - Notify immediately about any significant changes in symptoms or new issues.
== END 2025-02-06 11:13 | disposition home or self-care (01) ==
LOC: HO.HMCH 10:47
PROVIDERS: PCP Internal Medicine; Visit Provider Internal Medicine
DX: F33.0 Major depressive disorder, recurrent, mild (principal); K59.09 Other constipation; G70.00 Myasthenia gravis without (acute) exacerbation; I95.1 Orthostatic hypotension; R42 Dizziness and giddiness

== ENCOUNTER → 2025-02-06 10:46 | Outpatient (BNVA) | payer OTHER, SELFPAY | PROVIDERS: PCP Internal Medicine; Visit Provider Internal Medicine | DX: G70.00 Myasthenia gravis without (acute) exacerbation (principal); F33.0 Major depressive disorder, recurrent, mild; K59.09 Other constipation; I95.1 Orthostatic hypotension; R42 Dizziness and giddiness; Z79.899 Other long term (current) drug therapy | CPT/HCPCS: 99212 ==

== ENCOUNTER 2025-02-22 08:20 | Outpatient (AMB) | payer OTHER, SELFPAY ==
--- NOTE | 2025-02-22 08:21 | MHC.PC.OV ---
Vital Signs 02/22/25 08:24 Height 5 ft 3 in Weight 170 lb BMI 30.1 BP 112/64 Blood Pressure Location Lt brachial Position Sitting Intake Visit Reasons: red,hard circular area to right breast Director Of Midwifery/Staff Midwife Required: Yes Director Of Midwifery/Staff Midwife Language: Malay Director Of Midwifery/Staff Midwife Name: Fay Accompanied by: Self / Same As Patient Allergies Iodinated Contrast Media [IV CONTRAST] Allergy (Intermediate, Verified 02/22/25 08:36) DIFFICULTY BREATHING dextran sulfate Adverse Reaction (Mild, Verified 02/22/25 08:36) Cough Medication List - Last Reconciled 02/22/25 by Lucia Rico MD albuterol sulfate 90 mcg/actuation 2 puffs inhalation Q4-6H PRN 30 days atorvastatin 10 mg PO BEDTIME 90 days baclofen 10 mg PO BID PRN beclomethasone dipropionate 80 mcg/actuation (Qvar RediHaler) 1 inh inhalation BID 30 days cholecalciferol (vitamin D3) 50 mcg PO DAILY diclofenac sodium 1% 2 grams topical BID-TID docusate sodium 100 mg PO BID 90 days fluticasone propionate 50 mcg/actuation 2 sprays intranasal DAILY gabapentin 300 mg PO BID inulin 2 grams PO DAILY ketotifen fumarate 0.025%(0.035%) 1 drp ophthalmic (eye) Q8H lidocaine 5% 1 patch topical Q3D PRN meclizine 25 mg PO TID PRN 30 days sertraline 100 mg PO DAILY temazepam 7.5 mg PO BEDTIME PRN tirzepatide 5 mg (0.5 mL) subcut QWEEK 4 weeks Ventolin HFA 90 mcg/actuation (albuterol sulfate) 2 puffs inhalation Q4-6H PRN NS Tobacco use date assessed: 02/06/25 Dental Screening Dental Screen Date: 02/06/25 HPI HPI Comments History of Present Illness Details The patient is a 40-year-old female presenting with an observed red spot on her breast. Approximately one to two weeks ago, while showering, she noticed this condition. The spot is red and noticeable, yet not painful, with no associated nipple discharge or retraction. There is no history of trauma or additional precipitating events. Past imaging from October consisting of a mammogram and a breast ultrasound indicated normal results, with recommendations for a six-month follow-up. She reports no changes in her breast health since then. There are no exacerbating or alleviating factors or previous incidents of similar nature reported. [facility] Medical History (Updated 02/22/25 @ 08:52 by Lucia Rico MD) Allergic rhinitis Back pain Class 1 obesity with body mass index (BMI) of 30.0 to 30.9 in adult COVID-19 vaccine series completed Neck pain Vitamin D deficiency Multinodular thyroid Ocular myasthenia gravis Right hand pain Umbilical hernia Abdominal pain, LUQ (left upper quadrant) Asthma Iron deficiency anemia Polyarthralgia Acute hemorrhoid Pre-syncope Dizziness Orthostatic hypotension Surgical History Hx of cholecystectomy Hx of eye surgery History of umbilical hernia repair (~07/02/21) History of esophagogastroduodenoscopy (EGD) History of thyroidectomy History of gastric surgery History of section Family History Mother Hypertension Diabetes Father No problems noted. Paternal Aunt Breast cancer Social History Household Members: Significant Other and Children Housing: Apartment Are you a primary adult care provider to a significant other at home: No Do you presently have visiting nurse or other home services: No Alcohol intake: never Patient Tobacco Use Status: Never used Tobacco e-Cigarette/Vaping Use: Never Used Second Hand Smoke Exposure: No service: No Current occupational status: unemployed Cognitive needs: No Hearing needs: No Vision needs: Yes (glasses) Questionnaire PHQ-9 Over the last 2 weeks, how often have you been bothered by any of the following problems? 1. Little interest or pleasure in doing things: not at all 2. Feeling down, depressed, or hopeless: several days 3. Trouble falling or staying asleep, or sleeping too much: not at all 4. Feeling tired or having little energy: not at all 5. Poor appetite or overeating: not at all 6. Feeling bad about yourself - or that you are a failure or have let yourself or your family down: not at all 7. Trouble concentrating on things, such as reading the newspaper or watching television: not at all 8. Moving or speaking so slowly that other people could have noticed. Or the opposite - being so fidgety or restless that you have been moving around a lot more than usual: not at all 9. Thoughts that you would be better off or of hurting yourself in some way: not at all Total score: 1 Depression Screening Interpretation: Negative Depression Screening Done: Yes 60372 - PHQ-9 Billing: Yes Source: Developed by Drs. Betito Carter, Renata Daigle, Adam Bowman and colleagues, with an educational jame from [employer]. Thrive Questionnaire Date Thrive assessed: 02/06/25 I am a: Patient What is your living situation today?: I have a steady place to live Within the past 12 months, did the food you bought not last and you didn't have the money to get more?: Never true Within the past 12 months, did you worry whether your food would run out before you got money to buy more?: Never true Do you have trouble paying for medicines?: No Do you have trouble getting transportation to medical appointments?: No Do you have trouble paying your heating and electricity bill?: No Do you have trouble taking care of your child, family member or friend?: No Do you have trouble with day-to-day activities such as bathing, preparing meals, shopping, managing finances, etc.?: No Are you currently unemployed and looking for a job?: No Are you interested in more education?: No Please select the resources that you would like help with: None Currently or been in a relationship where the following occur: No concerns reported THRIVE Score: 0 AUDIT C Alcohol Use Questionnaire (AUDIT-C) 1. How often do you have a drink containing alcohol?: Never Total Score: 0 EPI-7 AMB Questionnaire EPI-7 Date EPI - 7 assessed: 02/22/25 Feeling nervous, anxious, or on edge: 1 = Several days Not being able to stop or control worryin = Not at all Worrying too much about different things: 0 = Not at all Trouble relaxin = Not at all Being so restless that it is hard to sit still: 0 = Not at all Becoming easily annoyed or irritable: 0 = Not at all Feeling afraid as if something awful might happen: 0 = Not at all Total EPI-7 score (0-4 normal; 5-9 mild; 10-14 moderate; 15-21 severe): 1 Source: Developed by Drs. Betito Carter, Renata Daigle, Adam Bowman and colleagues, with an educational jame from [employer]. EPI-7 Assessment Billing EPI-7 Assessment Tool: EPI-7 Assessment 43703 Review of Systems Const All systems reviewed & are unremarkable except as noted in HPI and below Card Denies chest pain at rest, Denies chest pain with activity, Denies edema, Denies irregular heart rhythm, Denies claudication, Denies dyspnea, Denies dyspnea on exertion, Denies orthopnea, Denies paroxysmal nocturnal dyspnea and Denies slow heart rate Resp Denies cough, Denies dyspnea and Denies dyspnea on exertion GI Denies abdominal pain, Denies change in bowel habits, Denies excessive flatus, Denies nausea and Denies vomiting Skin/Breast Reports breast skin changes Neuro Denies lack of coordination Physical exam (Primary Care) Vital Signs: Last Vital Signs BP 112/64 02/22/25 08:24 BMI result Body Mass Index 30.1 BMI Assessment/Plan discussion: High BMI High, discussed plan: lifestyle, weight reduction, dietary and physical activity Tobacco/Smoking Status: Tobacco use Status Tobacco use date assessed 02/06/25 02/22/25 08:29 Patient Tobacco Use Status Never used Tobacco 02/22/25 08:29 e-Cigarette/Vaping Use Never Used 02/22/25 08:29 PHQ-9: PHQ-9 Score PHQ-9: Total score 1 02/22/25 08:39 Depression Screening Interpretation: Negative Thrive Assessment: Date of Thrive Assessment Date Thrive assessed 02/06/25 02/22/25 08:29 Currently or been in a relationship where the following occur: No concerns reported Chest Breast/axilla inspection: abnormal inspection of the breast (Red right breast lesion at 10:00) Resp Effort & Inspection: normal respiratory effort Auscultation: clear to auscultation bilaterally Cardio Jugular venous distension: no JVD Rate: regular rate Rhythm: regular rhythm Heart sounds: S1 normal heart sound present and S2 normal heart sound present Extrem General: Yes full ROM Coding Level of Care Code Est Pt Level 3 (20755) Complex EM visit Add On G2211 Diagnoses Skin lesion of breast L98.8 Additional Codes EPI-7 Assessment Billing - EPI-7 Assessment Tool: EPI-7 Assessment 62771 ([id number]) PHQ-9 - 70128 - PHQ-9 Billing: Yes ([id number]) Time Spent (min) 19 Assessment & Plan Assessment & Plan (1) Skin lesion of breast: Code(s): L98.8 - Other specified disorders of the skin and subcutaneous tissue Category: Medical Plan To evaluate the observed red spot on the patient's breast, I will proceed with a follow-up breast ultrasound and a mammogram of the right breast to exclude any significant underlying pathology that may not have been apparent in the previous imaging conducted in October. Without additional symptoms like pain or discharge, the assessment aims to clarify if the red spot is merely a benign skin reaction. This plan was chosen to provide reassurance and ensure thorough evaluation given the symptom description, and these imaging methods carry minimal risk. Patient was informed and verbally consented to the use of an ambient scribe for clinic note documentation during this visit. During the visit, I discussed with the patient the potential implications of the red spot observed on her breast, noting that while it presents as a benign skin manifestation, further evaluation is required to ensure no underlying pathology. We reviewed the upcoming imaging procedures, including a breast ultrasound and mammogram, stressing their importance in reaching a definitive diagnosis. I highlighted the low risk associated with these tests and the substantial information they provide. We also discussed the prior imaging results from October, which had been normal, and the six-month follow-up recommendation. The patient was informed of the need for follow-up results to guide subsequent management. Orders: Orders US breast RT limited Today L98.8 - Other specified disorders of the skin and subcutaneous tissue MM diagnostic mammo unilat RT Today L98.8 - Other specified disorders of the skin and subcutaneous tissue Patient Instructions: - Undergo a breast ultrasound and mammogram for the right breast as planned - Monitor the red spot for any changes in size, texture, or discomfort - Contact the office if any new symptoms, such as pain or discharge, develop - Follow up with results from the imaging tests to decide on any further care
[2025-02-22 08:24] VITALS: BP 112/64; BMI 30.1
== END 2025-02-22 08:50 | disposition home or self-care (01) ==
PROVIDERS: PCP Internal Medicine; Visit Provider Internal Medicine
DX: L98.8 Other specified disorders of the skin and subcutaneous tissue (principal)

== ENCOUNTER 2025-02-22 08:20 | Outpatient (REF) | payer OTHER, SELFPAY ==
[2025-02-22 09:02] LABS: MANUAL DIFF FLAG NO
[2025-02-22 09:46] LABS: Basophils Percent Auto 0.6 % (0-2); Eosinophils Absolute Auto 0.1 X10*3/uL (0.0-0.4); Eosinophils Percent Auto 2.7 % (0-4); Hematocrit 39.9 % (37.0-47.0); Hemoglobin 12.5 g/dl (12.0-16.0); Imm Gran Abs Auto 0.02 X10*3/uL (0.00-0.03); Imm Gran Pct Auto 0.4 % (0.0-0.4); Lymphocytes Absolute Auto 1.4 X10*3/uL (1.2-4.9); Lymphocytes Percent Auto 28.2 % (20-40); Mean Corpuscular HGB Conc 31.3 g/dl (31.0-35.0); Mean Corpuscular Hemoglobin 24.6 pg (27.0-33.0); Mean Corpuscular Volume 78.4 fL (80.0-98.0); Mean Platelet Volume 9.2 fL (9.4-12.3); Monocytes Absolute Auto 0.4 X10*3/uL (0.1-1.2); Monocytes Percent Auto 7.8 % (2-11); Neutrophils Absolute Auto 3.1 x10*3/uL (2.0-8.3); Neutrophils Percent Auto 60.3 % (45-73); Platelet Count 269 X10*3/uL (160-400); Red Blood Count 5.09 X10*6/uL (4.20-5.50); White Blood Count 5.1 X10*3/uL (4.8-10.8)
[2025-02-22 10:36] LABS: Alanine Aminotransferase 15 U/L (0-31); Albumin Level 4.3 g/dL (3.5-5.0); Alkaline Phosphatase 79 U/L (39-117); Anion Gap 11 (12-20); Aspartate Amino Transferase 23 U/L (5-31); Bilirubin Total 0.8 mg/dL (0.0-1.0); Blood Urea Nitrogen 14 mg/dL (9-16); Calcium 9.2 mg/dL (8.4-10.2); Carbon Dioxide 26 mmol/L (22-29); Chloride 106 mmol/L (96-108); Cholesterol 171 mg/dL (<200); Estimated Glomerular Filt Rate > 60; Glucose Fasting 78 mg/dL (60-99); HDL Cholesterol 43 mg/dL (>40); LDL Cholesterol Calculated 116 mg/dL (<100); Potassium 3.5 mmol/L (3.3-5.1); Sodium 139 mmol/L (135-145); Total Protein 7.4 g/dL (6.5-8.0); Triglycerides 61 mg/dL (<150)
[2025-02-22 10:53] LABS: Free T4 (Free Thyroxine) 1.13 ng/dL (0.71-1.85); Thyroid Stimulating Hormone 0.31 uIU/mL (0.32-4.0)
== END 2025-02-22 08:21 | disposition home or self-care (01) ==
LOC: HO.LAB 08:20
PROVIDERS: PCP Internal Medicine; Visit Provider Internal Medicine
DX: L98.8 Other specified disorders of the skin and subcutaneous tissue (principal); K59.09 Other constipation; E66.9 Obesity, unspecified; E04.9 Nontoxic goiter, unspecified; E78.5 Hyperlipidemia, unspecified
CPT/HCPCS: 36415; 80053; 80061; 84439; 84443; 85025; 96127; 99212

== ENCOUNTER 2025-03-30 12:46 | Outpatient (REF) | payer OTHER, SELFPAY ==
--- NOTE | ~2025-03-30 | MM_ITS ---
EXAMINATION: MM DIAGNOSTIC DIGITAL BREAST TOMOSYNTHESIS, RIGHT Limited right breast ultrasound. CLINICAL INFORMATION: 6 month follow-up for right breast asymmetry on MLO view without sonographic correlate. Patient has a palpable right breast lump upper outer breast anterior depth which has since decreased/gone away from priors. COMPARISON: Mammography: Prior's on PACS. TECHNIQUE: Digital breast tomosynthesis is performed in both the craniocaudal and mediolateral oblique views along with computer-aided detection (CAD). Synthesized 2D images are generated from the tomosynthesis. FINDINGS: The breasts are heterogeneously dense, which may obscure small masses (ACR BI-RADS breast composition Category c). Previously seen asymmetry in the retroareolar region of the right breast on MLO view without prior sonographic correlate is not significantly changed from prior mammogram. BB marker in the upper outer breast anterior depth without underlying abnormality at the area of the patient's palpable lump which has decreased/Adrián from prior. No suspicious calcifications or other abnormal findings. Targeted color Doppler ultrasound scanning in the area of the patient's palpable superficial lump in the upper outer quadrant demonstrates normal fibronodular breast tissue. There is no sonographic abnormal findings. MM/MM tomosynthesis diagnostic RT IMPRESSION: Recommend six-month follow-up diagnostic right breast mammogram when the patient is due for bilateral mammography to demonstrate stability of right breast asymmetry retroareolar region on MLO view without prior sonographic correlate. No mammographic or sonographic abnormal findings to account for the patient's upper outer quadrant right breast palpable lump. Recommend clinical evaluation and follow-up. ASSESSMENT: BI-RADS BI-RADS 3 - Probably benign finding(s) - 6 month follow-up suggested RECOMMENDATION: 6 Month F/U Results were provided to the patient at time of visit by the technologist. This patient's information was entered into a reminder system with a target due date for their next mammogram. Electronically signed by: Holly Can DO 03/30/2025 02:29 PM EDT
== END 2025-03-30 12:47 | disposition home or self-care (01) ==
LOC: HO.MAMMO 12:46
PROVIDERS: PCP Internal Medicine; Visit Provider Internal Medicine
DX: L98.8 Other specified disorders of the skin and subcutaneous tissue (principal)
CPT/HCPCS: 76642; 77061; 77065

== ENCOUNTER → 2025-03-30 13:30 | Outpatient (BNV) | payer OTHER, SELFPAY | PROVIDERS: PCP Internal Medicine; Visit Provider Internal Medicine | DX: N64.89 Other specified disorders of breast (principal) | CPT/HCPCS: 76642; 77061; 77065 ==

== ENCOUNTER 2025-04-10 08:58 | Outpatient (AMB) | payer OTHER, SELFPAY ==
[2025-04-10 09:02] VITALS: BP 118/68; PULSE 83; BMI 28.5
--- NOTE | 2025-04-10 09:02 | MHC.OFFVIS ---
Vital Signs 04/10/25 09:02 Height 5 ft 3 in Weight 160 lb 14.999 oz BMI 28.5 BP 118/68 Blood Pressure Location Lt brachial Position Sitting Pulse 83 Intake Visit Reasons: Follow up Intake Note: Overdue follow-up with ekg c/o palpitations with high bp at that time Boiler Riveter Required: No Allergies Iodinated Contrast Media [IV CONTRAST] Allergy (Intermediate, Verified 02/22/25 08:36) DIFFICULTY BREATHING dextran sulfate Adverse Reaction (Mild, Verified 02/22/25 08:36) Cough Medication List - Last Reconciled 04/10/25 by Augustine Lopez MD albuterol sulfate 90 mcg/actuation 2 puffs inhalation Q4-6H PRN 30 days atorvastatin 10 mg PO BEDTIME 90 days baclofen 10 mg PO BID PRN beclomethasone dipropionate 80 mcg/actuation (Qvar RediHaler) 1 inh inhalation BID 30 days cholecalciferol (vitamin D3) 50 mcg PO DAILY diclofenac sodium 1% 2 grams topical BID-TID docusate sodium 100 mg PO BID 90 days fluticasone propionate 50 mcg/actuation 2 sprays intranasal DAILY gabapentin 300 mg PO BID inulin 2 grams PO DAILY ketotifen fumarate 0.025%(0.035%) 1 drp ophthalmic (eye) Q8H lidocaine 5% 1 patch topical Q3D PRN loratadine (Allergy Relief (loratadine)) 10 mg PO DAILY 90 days meclizine 25 mg PO TID PRN 30 days sertraline 100 mg PO DAILY temazepam 7.5 mg PO BEDTIME PRN Ventolin HFA 90 mcg/actuation (albuterol sulfate) 2 puffs inhalation Q4-6H PRN NS HPI Comments Details: Mook returns for follow up of dizziness and orthostatic hypotension. In the past, she underwent weight loss surgery and lost about 80 lb. Even before the surgery she had lowish blood pressures. She was maintained on midodrine but she is no longer taking it as she states that her blood pressure intermittently actually goes high. Some days she sees blood pressure at home as much as 160 mm Hg. However, essentially all the readings that were done in the clinic have been well within the normal range. She was taking midodrine/Florinef but not anymore. No other cardiac symptoms. [facility] Medical History Allergic rhinitis Back pain Class 1 obesity with body mass index (BMI) of 30.0 to 30.9 in adult COVID-19 vaccine series completed Neck pain Vitamin D deficiency Multinodular thyroid Ocular myasthenia gravis Right hand pain Umbilical hernia Abdominal pain, LUQ (left upper quadrant) Asthma Iron deficiency anemia Polyarthralgia Acute hemorrhoid Pre-syncope Dizziness Orthostatic hypotension Surgical History Hx of cholecystectomy Hx of eye surgery History of umbilical hernia repair (~07/02/21) History of esophagogastroduodenoscopy (EGD) History of thyroidectomy History of gastric surgery History of section Family History Mother Hypertension Diabetes Father No problems noted. Paternal Aunt Breast cancer Social History Household Members: Significant Other and Children Housing: Apartment Are you a primary rn intensive care unit to a significant other at home: No Do you presently have visiting nurse or other home services: No Alcohol intake: never Patient Tobacco Use Status: Never used Tobacco e-Cigarette/Vaping Use: Never Used Second Hand Smoke Exposure: No service: No Current occupational status: unemployed Cognitive needs: No Hearing needs: No Vision needs: Yes (glasses) Review of Systems Const Denies chills, Denies fatigue, Denies fever(s), Denies frequent falls, Denies weakness, Denies weight gain and Denies weight loss ENT Denies dizziness Card Denies chest pain, Denies leg edema, Denies lightheadedness, Reports palpitations, Denies dyspnea, Denies dyspnea on exertion, Denies orthopnea and Denies other (loss of consciousness) Resp Denies cough, Denies dyspnea and Denies dyspnea on exertion GI Denies hematochezia and Denies change in stool character Musc Denies abnormal gait, Denies muscle weakness, Denies numbness, Denies radiating pain into limb and Denies tingling Neuro Denies abnormal gait, Denies dizziness, Denies frequent falls, Denies numbness, Denies tingling and Denies weakness Endo Denies fatigue and Reports palpitations Physical Exam Vital Signs: Last Vital Signs Pulse 83 04/10/25 09:02 BP 118/68 04/10/25 09:02 BMI result Body Mass Index 28.5 Const General: comfortable and no acute distress Orientation/consciousness: patient oriented x3 HEENT Other: Unremarkable Head: Yes normal to inspection Neck Neck: Yes normal visual inspection Chest Chest palpation & inspection: normal inspection of the chest Resp Auscultation: clear to auscultation bilaterally Cardio Palpation: normal PMI Heart sounds: S1 normal heart sound present, S2 normal heart sound present, no gallops, no murmurs and no rubs GI Palpation (GI): Soft to palpation Back/Spine/Pelvis Other: unremarkable Skin General skin exam: no rashes or lesions noted Neuro General: patient oriented x3 Extrem General: Yes normal to inspection Psych Mental Status: mental status grossly normal Office Procedures EKG Details: EKG with underlying sinus rhythm at 63/Min; low-voltage QRS complexes; [place] [id number], Complete Assessment & Plan Assessment & Plan (1) Orthostatic hypotension: Code(s): I95.1 - Orthostatic hypotension Category: Medical (2) Primary hypertension: Code(s): I10 - Essential (primary) hypertension Category: Medical (3) Obesity: Code(s): E66.9 - Obesity, unspecified Category: Medical (4) S/P gastric sleeve procedure: Code(s): Z90.3 - Acquired absence of stomach [part of] Category: Surgical Plan She seems stable from the hypotension standpoint but now has intermittent hypertension. Off midodrine/Florinef. She does not need daily medications but can use amlodipine as necessary for consistently high blood pressures. We discussed about this today. Discussion Notes I discussed management of essential hypertension with medication for high BP episodes. Understanding the roles of stress and relaxation as influencing factors was emphasized. I addressed risks and benefits of medication use during elevated BP, ensuring intermittent usage. I explained that using medication during episodic BP rise could prevent complications. For weight, I acknowledged her progress post-surgery and suggested maintaining monitoring. I clarified how episodic BP medication should be integrated into her management without daily use. Consensual understanding was achieved for medication administration and overall management. Patient was informed and verbally consented to the use of an ambient scribe for clinic note documentation during this visit. Medications: New amlodipine 2.5 mg PO DAILY PRN 30 tabs 5RF If BP>150/90mmHg Patient Instructions: - Take prescribed medication if blood pressure remains over 150/90 mmHg for a few days. - Monitor blood pressure readings regularly at home. - Aim to maintain current health parameters. - Monitor weight. - Relax when stressed to help control blood pressure. - Contact healthcare provider if symptoms persist or worsen. Coding Level of Care Code Est Pt Level 3 (90576) Diagnoses Orthostatic hypotension I95.1 Primary hypertension I10 Obesity E66.9 S/P gastric sleeve procedure Z90.3 CPT Codes EKG - CPT: 13923-[id number], Complete ([id number])
== END 2025-04-10 09:31 | disposition home or self-care (01) ==
LOC: HO.HCS 08:59
PROVIDERS: PCP Internal Medicine; Visit Provider Internal Medicine
DX: I95.1 Orthostatic hypotension (principal); I10 Essential (primary) hypertension; E66.9 Obesity, unspecified; Z90.3 Acquired absence of stomach [part of]
CPT/HCPCS: 93010; 99213

== ENCOUNTER → 2025-04-10 08:58 | Outpatient (BNVA) | payer OTHER, SELFPAY | PROVIDERS: PCP Internal Medicine; Visit Provider Internal Medicine | DX: I95.0 Idiopathic hypotension (principal); I10 Essential (primary) hypertension; E66.9 Obesity, unspecified; Z68.28 Body mass index [BMI] 28.0-28.9, adult; Z90.3 Acquired absence of stomach [part of] | CPT/HCPCS: 93005; 99212 ==

== ENCOUNTER 2025-06-06 09:48 | Outpatient (AMB) | payer OTHER, SELFPAY ==
--- NOTE | 2025-06-06 09:59 | A.OFFVIS_ITS ---
VS Expanded 06/06/25 10:19 BP 101/58 L Blood Pressure Location Rt brachial Blood Pressure Position Sitting Pulse 74 Pulse Source Pulse Oximeter Temp 97.3 F Temperature Source Temporal Artery Scan Pulse Oximetry 97 Oxygen Delivery Method Room Air Height 5 ft 3 in Weight 161 lb 3.2 oz BMI 28.6 Body Fat % 30.6 Body Fat Mass 49.4 Fat Free Mass 111.8 Visceral Fat Rating 6.0 Body Water % 9.5 Body Water Mass 79.8 Muscle Mass/Score 106.0 Basal Metabolic Rate/Score 1,509 Intake Visit Reasons: OV PO LSG 06/29/2018 Allergies Iodinated Contrast Media (IV CONTRAST) Allergy (Intermediate, Verified 06/06/25 10:12) DIFFICULTY BREATHING dextran sulfate Adverse Reaction (Mild, Verified 06/06/25 10:12) Cough Medication List - Last Reconciled 06/06/25 by CARTER Nuñez albuterol sulfate 90 mcg/actuation 2 puffs inhalation Q4-6H PRN 30 days amlodipine 2.5 mg PO DAILY PRN atorvastatin 10 mg PO BEDTIME 90 days baclofen 10 mg PO BID PRN beclomethasone dipropionate 80 mcg/actuation (Qvar RediHaler) 1 inh inhalation BID 30 days cholecalciferol (vitamin D3) 50 mcg PO DAILY diclofenac sodium 1% 2 grams topical BID-TID docusate sodium 100 mg PO BID 90 days fluticasone propionate 50 mcg/actuation 2 sprays intranasal DAILY gabapentin 300 mg PO BID inulin 2 grams PO DAILY ketotifen fumarate 0.025%(0.035%) 1 drp ophthalmic (eye) Q8H lidocaine 5% 1 patch topical Q3D PRN loratadine (Allergy Relief (loratadine)) 10 mg PO DAILY 90 days meclizine 25 mg PO TID PRN 30 days sertraline 100 mg PO DAILY temazepam 7.5 mg PO BEDTIME PRN tirzepatide (weight loss) (Zepbound) 12.5 mg subcut QWEEK Ventolin HFA 90 mcg/actuation (albuterol sulfate) 2 puffs inhalation Q4-6H PRN NS HPI Comments Details: This?is a?39?yo female who is s/p LSG 06/29/2018. Presents for 7 year post op visit. Weight at last visit on 12/08/2024 was 178.8 pounds; weight today is 161.2 pounds, representing a 17.6 pound weight loss with a BMI today of 28.6.? Pt continues on Zepbound. Tolerating without issues. Present meal plan includes: 2 Isopure unflavored drinks per day each 1 scoop in 8oz fluid (coffee, tea, water or water with herbs for soup broth). Meal of 6f/6f for lunch. - given at last office visit Exercise routine includes: walks daily Pt is experiencing issues of excess skin of abdomen. Sometimes will get rashes of skin folds, that become itchy or painful. She has noticed moisture collecting in the skin folds which smells unpleasant, has to wash more frequently. Has to wear compression around excess skin of abdomen to hold excess skin in place to prevent movement. Excess skin is heavy and uncomfortable. It pulls on her lower back which causes pain. Excess skin of upper arms has also become bothersome to patient. Skin of upper arms rubs against the torso and chafes which is painful. Has to wear long sleeves at all times to prevent skin from rubbing together against torso. Skin is heavy and makes it more difficult for her to lift her arms fully over her head. She also has excess breast tissue which is comfortable. [facility] Medical History Allergic rhinitis Back pain Class 1 obesity with body mass index (BMI) of 30.0 to 30.9 in adult COVID-19 vaccine series completed Neck pain Vitamin D deficiency Multinodular thyroid Ocular myasthenia gravis Right hand pain Umbilical hernia Abdominal pain, LUQ (left upper quadrant) Asthma Iron deficiency anemia Polyarthralgia Acute hemorrhoid Pre-syncope Dizziness Orthostatic hypotension Surgical History Hx of cholecystectomy Hx of eye surgery History of umbilical hernia repair (~07/02/21) History of esophagogastroduodenoscopy (EGD) History of thyroidectomy History of gastric surgery History of section Family History Mother Hypertension Diabetes Father No problems noted. Paternal Aunt Breast cancer Social History Household Members: Significant Other and Children Housing: Apartment Are you a primary home care manager to a significant other at home: No Do you presently have visiting nurse or other home services: No Alcohol intake: never Patient Tobacco Use Status: Never used Tobacco e-Cigarette/Vaping Use: Never Used Second Hand Smoke Exposure: No service: No Current occupational status: unemployed Cognitive needs: No Hearing needs: No Vision needs: Yes (glasses) Assessment & Plan Assessment & Plan (1) Overweight: Code(s): E66.3 - Overweight Category: Medical (2) S/P gastric sleeve procedure: Code(s): Z90.3 - Acquired absence of stomach [part of] Category: Medical Plan Pt doing well on Zepbound. (prescribed by Dr Cohen) She has excess skin of both arms and abdomen resulting in rashes. Clotrimazole ointment ordered. Labs ordered. Pt has excess breast tissue and would like referral to plastics. Will send info to Dr. Zapata's office. RTC 3mo for in person visit, possible photos if she meets goal for skin removal surgery (152lbs). Orders: Orders Vitamin D 25-OH Total Today Z90.3 - Acquired absence of stomach [part of] Ferritin Today Z90.3 - Acquired absence of stomach [part of] Vitamin A Today Z90.3 - Acquired absence of stomach [part of] Vitamin B12 and Folate Today Z90.3 - Acquired absence of stomach [part of] IRON PROFILE Today Z90.3 - Acquired absence of stomach [part of] Insulin Today Z90.3 - Acquired absence of stomach [part of] TSH reflex Free T4 Today Z90.3 - Acquired absence of stomach [part of] C Reactive Protein Today Z90.3 - Acquired absence of stomach [part of] Vitamin B1 Today Z90.3 - Acquired absence of stomach [part of] Zinc Today Z90.3 - Acquired absence of stomach [part of] Comprehensive Met. Panel Today Z90.3 - Acquired absence of stomach [part of] Complete Blood Count Auto Diff Today Z90.3 - Acquired absence of stomach [part of] Lipid Panel Today Z90.3 - Acquired absence of stomach [part of] Hemoglobin A1c Today Z90.3 - Acquired absence of stomach [part of] Medications: New clotrimazole 1% 1 appl topical BID 45 grams 3RF
--- OUTSIDE RECORDS SUMMARY | 2025-06-06 10:13 | XMS_ITS | Clinical Summary ---
Author Organization [address] [place] [address] [place] [phone] Phone Care Team Providers Care Customer Solutions Supervisor Name Role Phone Lucia Rico MD Primary Care Provider [phone] Allergies No known active allergies Medications tirzepatide, weight loss, (Zepbound) 12.5 mg/0.5 mL injection Inject 0.5 mL (12.5 mg total) under the skin every 7 (seven) days. 2 mL 2 5 08/21/20 25 Active tirzepatide, weight loss, (Zepbound) 10 mg/0.5 mL injection Inject 0.5 mL (10 mg total) under the skin every 7 (seven) days for 28 days. 2 mL 5 05/10/20 25 tirzepatide, weight loss, (Zepbound) 12.5 mg/0.5 mL injection Inject 0.5 mL (12.5 mg total) under the skin every 7 (seven) days. 2 mL 5 05/23/20 25 Discontinue d(Reorder) Active Problems Problem Noted Date Diagnosed Date Overweight (BMI 25.0-29.9) 05/23/2025 Class 1 obesity without seri ous comorbidity with body mass index (BMI) of 30.0 to 30.9 in adult 02/21/2025 Encounters Date Type Department Care Team Description 05/25/2025 Telephone Bariatric Surgery [address] [phone] Robel Cohen MD prior auth ([place]) 05/23/2025 12:30 PM EDT Telemedicine Bariatric Surgery [address] [phone] [address] Overweight (BMI 25.0-29.9) (Primary Dx) 05/23/2025 11:15 AM EDT Office Visit Bariatric Surgery [address] [phone] Robel Cohen MD Over weight (Primary Dx) 04/10/2025 Telephone Bariatric Surgery [address] [phone] Robel Cohen MD Med Refill (Zepbound) 03/14/2025 Telephone Bariatric Surgery [address] [phone] Robel Cohen MD Med Refill from Last 3 Months Social History Tobacco Use Types Packs/Day Years Used Date Smoking Tobacco: Never Assessed Comments Unknown Sex and Gender Information Value Date Recorded Sex Assigned at Female 02/14/2025 11:43 AM EDT Legal Sex Female 11:40 AM EDT Gender Identity Female 02/14/2025 11:43 AM EDT Sexual Orientation Not on file Last Filed Vital Signs Vital Sign Reading Time Taken Comments Blood Pressure 88/59 05/23/2025 11:18 AM EDT Pulse 78 05/23/2025 11:18 AM EDT Temperature 36.6 C (97.8 F) 05/23/2025 11:18 AM EDT Respiratory Rate - - Oxygen Saturation - - Inhaled Oxygen Concentration - - Weight 73 kg (161 lb) 05/23/2025 12:00 PM EDT Height 160 cm (5' 3 ) 05/23/2025 11:18 AM EDT Body Mass Index 28.52 05/23/2025 11:18 AM EDT Plan of Treatment Upcoming Encounters Date Type Department Care Team ([facility] st Contact Info) Description 08/18/2025 12:30 PM EDT Telemedicine Bariatric Surgery [address] [phone] [address] [phone] 11/23/2025 11:15 AM EST Office Visit Bariatric Surgery - [place] [address] [place] [phone] Robel Cohen MD [address] [facility] [address] [place] [address] Health Maintenance Due Date Last Done Comments Breast Cancer Screening 1985 DTaP,Tdap,and Td Vaccines (1 - Tdap) 02/12/2003 Hepatitis B Vaccines (1 of 3 - 19+ 3-dose series) 02/12/2003 Cervical Cancer Screening: P ap Smear 02/12/2005 COVID-19 Vaccine ( - 2023-2 5 season) 2024 Cholesterol Screening (Lipid Panel) 08/27/2024 HIV Screening 08/27/2024 Hepatitis C Screening 08/27/2024 Social Influencers of Health Screening 08/27/2024 Depression Screening 11/02/2024 Influenza Vaccine (#1) 2025 HIB Vaccines Aged Out No longer eligi ble based on patient's age to complete this topic HPV Vaccines Aged Out No longer eligi ble based on patient's age to complete this topic Hepatitis A Vaccines Aged Out No long er eligible based on patient's age to complete this topic IPV Vaccines Aged Out No longer eligi ble based on patient's age to complete this topic MMR Vaccines Aged Out No longer eligi ble based on patient's age to complete this topic Meningococcal ACWY Vaccine Aged Out N o longer eligible based on patient's age to complete this topic Meningococcal B Vaccine Aged Out No l onger eligible based on patient's age to complete this topic Pneumococcal Vaccine: Pediat rics (0 to 5 Years) and At-Risk Patients (6 to 49 Years) Aged Out No longer eligible b ased on patient's age to complete this topic RSV Immunization Patients Un jil 20 months Aged Out No longer eligible b ased on patient's age to complete this topic Varicella Vaccines Aged Out No longer eligible based on patient's age to complete this topic Insurance [facility] [employer] Care Teams Customer Solutions Supervisor Relationship Specialty Start Date End Date Lucia Rico MD [address] [place] [address] PCP - General Internal Medicine 10/11/24
[2025-06-06 10:19] VITALS: BP 101/58; PULSE 74; TEMP 36.3; O2SAT 97; BMI 28.6
== END 2025-06-06 10:40 | disposition home or self-care (01) ==
LOC: HO.HBS 09:49
PROVIDERS: PCP Internal Medicine; Visit Provider Physician Assistant Surgical
DX: E66.3 Overweight (principal); Z68.28 Body mass index [BMI] 28.0-28.9, adult; Z90.3 Acquired absence of stomach [part of]; Z98.84 Bariatric surgery status
CPT/HCPCS: 99214

== ENCOUNTER → 2025-06-06 09:48 | Outpatient (BNVA) | payer OTHER, SELFPAY | PROVIDERS: PCP Internal Medicine; Visit Provider Physician Assistant Surgical | DX: Z98.84 Bariatric surgery status (principal); E66.3 Overweight; Z90.3 Acquired absence of stomach [part of] | CPT/HCPCS: 99212 ==

== ENCOUNTER 2025-07-04 09:25 | Outpatient (REF) | payer OTHER, SELFPAY ==
[2025-07-04 09:53] LABS: MANUAL DIFF FLAG NO
--- OUTSIDE RECORDS SUMMARY | 2025-07-04 10:27 | XMS_ITS | Clinical Summary ---
Author Organization [address] [place] [address] Address [address] [place] [address] Phone Care Team Providers Care Agricultural Aircraft Pilot Name Role Phone Lucia Rico MD Primary Care Provider [phone] Allergies No known active allergies Medications tirzepatide, weight loss, (Zepbound) 12.5 mg/0.5 mL injection Inject 0.5 mL (12.5 mg total) under the skin every 7 (seven) days. 2 mL 2 05/23/2025 Active Active Problems Problem Noted Date Diagnosed Date Overweight (BMI 25.0-29.9) 05/23/2025 Class 1 obesity without seri ous comorbidity with body mass index (BMI) of 30.0 to 30.9 in adult 02/21/2025 Encounters Date Type Department Care Team Description 05/25/2025 Telephone Bariatric Surgery [address] [phone] Robel Cohen MD 05/23/2025 12:30 PM EDT Telemedicine Bariatric Surgery [address] [phone] Overweight (BMI 25.0-29.9) (Primary Dx) 05/23/2025 11:15 AM EDT Office Visit Bariatric Surgery [address] [phone] Robel Cohen MD Over weight (Primary Dx) 04/10/2025 Telephone Bariatric Surgery [address] [phone] Robel Cohen MD from Last 3 Months Social History Tobacco [...] Upcoming Encounters Date Type Department Care Team (Late st Contact Info) Description 08/18/2025 12:30 PM EDT Telemedicine Bariatric Surgery [address] [phone] Radha Jeffrey, JAYSON [address] [phone] 11/23/2025 11:15 AM EST Office Visit Bariatric Surgery [address] [phone] Robel Cohen MD [address] [place] [phone] Health Maintenance Due Date Last Done Comments Breast Cancer Screening 1984 DTaP,Tdap,and Td Vaccines (1 - Tdap) 02/12/2003 Hepatitis B Vaccines (1 of 3 - 19+ 3-dose series) 02/12/2003 Cervical Cancer Screening: P ap Smear 02/12/2005 COVID-19 Vaccine (2023-2 5 season) 2024 Cholesterol Screening (Lipid Panel) [...] patient's age to complete this topic Insurance [facility] Care Teams Agricultural Aircraft Pilot Relationship Specialty Start Date End Date Lucia Rico MD [address] [place] [address] PCP - General Internal Medicine 10/11/24
[2025-07-04 10:40] LABS: Hematocrit 36.5 % (37.0-47.0); Hemoglobin 11.7 g/dl (12.0-16.0); Imm Gran Abs Auto 0.02 X10*3/uL (0.00-0.03); Imm Gran Pct Auto 0.3 % (0.0-0.4); Lymphocytes Absolute Auto 1.9 X10*3/uL (1.2-4.9); Mean Corpuscular HGB Conc 32.1 g/dl (31.0-35.0); Mean Corpuscular Hemoglobin 25.4 pg (27.0-33.0); Mean Corpuscular Volume 79.2 fL (80.0-98.0); NRBC Abs Auto 0.000 X10*3/uL (0.0-0.012); NRBC Pct Auto 0.0 /100WBC (0.0-0.2); Platelet Count 251 X10*3/uL (160-400); Red Blood Count 4.61 X10*6/uL (4.20-5.50); White Blood Count 6.0 X10*3/uL (4.8-10.8)
[2025-07-04 10:50] LABS: Hemoglobin A1C 94.6091 umol/L; Total Hemoglobin (HGBA1C) 3169.3048 umol/L
[2025-07-04 11:04] LABS: Alanine Aminotransferase 11 U/L (0-31); Albumin Level 4.3 g/dL (3.5-5.0); Alkaline Phosphatase 72 U/L (39-117); Anion Gap 9 (12-20); Aspartate Amino Transferase 20 U/L (5-31); Blood Urea Nitrogen 13 mg/dL (9-16); Calcium 8.9 mg/dL (8.4-10.2); Carbon Dioxide 26 mmol/L (22-29); Chloride 108 mmol/L (96-108); Cholesterol 129 mg/dL (<200); Estimated Glomerular Filt Rate > 60; HDL Cholesterol 40 mg/dL (>40); Iron 99 mcg/dL (30-160); Percent Iron Saturation 38 % (15-50); Potassium 3.4 mmol/L (3.3-5.1); Sodium 140 mmol/L (135-145); Total Iron Binding Capacity 263 mcg/dL (228-428); Total Protein 6.9 g/dL (6.5-8.0); Triglycerides 63 mg/dL (<150); Unsaturated Iron Binding 164 ug/dL
[2025-07-04 11:23] LABS: Ferritin 66 ng/mL (10-250)
[2025-07-04 11:24] LABS: Folate 15.1 ng/mL (> or = 4.0); Vitamin B12 401 pg/mL (200-900)
== END 2025-07-04 09:26 | disposition home or self-care (01) ==
LOC: HO.LAB 09:25
PROVIDERS: Absent Provider Physician Assistant Surgical; PCP Internal Medicine; Visit Provider Internal Medicine
DX: Z90.3 Acquired absence of stomach [part of] (principal)
CPT/HCPCS: 36415; 80053; 80061; 82306; 82607; 82728; 82746; 83036; 83525; 83540; 84425; 84443; 84590; 84630; 85025; 86140

== ENCOUNTER 2025-08-16 08:28 | Outpatient (AMB) | payer OTHER, SELFPAY ==
[2025-08-16 08:32] VITALS: BP 98/60; PULSE 88; RESP 18; TEMP 36.3; O2SAT 98; BMI 27.2
--- NOTE | 2025-08-16 08:32 | A.OFFPC_ITS ---
Vital Signs 08/16/25 08:32 Height 5 ft 3 in Weight 153 lb 8 oz BMI 27.2 BP 98/60 Blood Pressure Location Lt brachial Position Sitting Respiration 18 Pulse 88 Pulse Source Pulse Oximeter Temp 97.3 F Temp Source Temporal Artery Scan Pulse Oximetry (%) 98 Oxygen Delivery Method Room Air Intake Visit Reasons: Annual Exam Machine Operator Farmworker Required: Yes Machine Operator Farmworker Language: Georgian Machine Operator Farmworker Name: Bernice [id number] Information Interpreted: clinical only Copy Lathe Operator: Not Required per policy Accompanied by: Self / Same As Patient Allergies Iodinated Contrast Media (IV CONTRAST) Allergy (Intermediate, Verified 08/16/25 09:02) DIFFICULTY BREATHING dextran sulfate Adverse Reaction (Mild, Verified 08/16/25 09:02) Cough Medication List - Last Reconciled 08/16/25 by Lucia Rico MD albuterol sulfate 90 mcg/actuation 2 puffs inhalation Q4-6H PRN 30 days amlodipine 2.5 mg PO DAILY PRN atorvastatin 10 mg PO BEDTIME 90 days baclofen 10 mg PO BID PRN beclomethasone dipropionate 80 mcg/actuation (Qvar RediHaler) 1 inh inhalation BID 30 days clotrimazole 1% 1 appl topical BID diclofenac sodium 1% 2 grams topical BID-TID docusate sodium 100 mg PO BID 90 days fluticasone propionate 50 mcg/actuation 2 sprays intranasal DAILY gabapentin 300 mg PO BID ketotifen fumarate 0.025%(0.035%) 1 drp ophthalmic (eye) Q8H lidocaine 5% 1 patch topical Q3D PRN loratadine (Allergy Relief (loratadine)) 10 mg PO DAILY 90 days meclizine 25 mg PO TID PRN 30 days sertraline 100 mg PO DAILY temazepam 7.5 mg PO BEDTIME PRN tirzepatide (weight loss) (Zepbound) 12.5 mg subcut QWEEK Ventolin HFA 90 mcg/actuation (albuterol sulfate) 2 puffs inhalation Q4-6H PRN NS Tobacco use date assessed: 08/16/25 Dental Screening Dental Screen Date: 08/16/25 Did you have a dental visit in the last 12 months?: Yes Did you have a dental problem in the last 6 months where you did not have access to dental care?: No Was dental information given to patient?: Patient has dentist HPI HPI Comments History of Present Illness Details The patient is a 40-year-old female presenting for her physical exam with follow-up on mammogram results, vaccination updates, and evaluation of a hand mass. 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 The patient had a mammogram that needs to be repeated in six months as part of routine screening. She has not received a tetanus vaccination previously, which is typically administered every ten years or during . The patient reports a mass in her hand, which appears to be a calcification. She was previously diagnosed with lymphadenitis, which was initially located in the neck and has since moved to the hand. The patient has a history of mild anemia and low vitamin A levels, despite ongoing treatment without significant improvement. She also experiences mild depression, which is currently managed with sertraline. [facility] Medical History Allergic rhinitis Back pain Class 1 obesity with body mass index (BMI) of 30.0 to 30.9 in adult COVID-19 vaccine series completed Neck pain Vitamin D deficiency Multinodular thyroid Ocular myasthenia gravis Right hand pain Umbilical hernia Abdominal pain, LUQ (left upper quadrant) Asthma Iron deficiency anemia Polyarthralgia Acute hemorrhoid Pre-syncope Dizziness Orthostatic hypotension Surgical History Hx of cholecystectomy Hx of eye surgery History of umbilical hernia repair (~07/02/21) History of esophagogastroduodenoscopy (EGD) History of thyroidectomy History of gastric surgery History of section Family History Mother Hypertension Diabetes Father No problems noted. Paternal Aunt Breast cancer Social History Household Members: Significant Other and Children Housing: Apartment Are you a primary healthcare social worker to a significant other at home: No Do you presently have visiting nurse or other home services: No Alcohol intake: never Patient Tobacco Use Status: Never used Tobacco e-Cigarette/Vaping Use: Never Used Second Hand Smoke Exposure: No service: No Current occupational status: unemployed Cognitive needs: No Hearing needs: No Vision needs: Yes (glasses) Questionnaire PHQ-9 Over the last 2 weeks, how often have you been bothered by any of the following problems? 1. Little interest or pleasure in doing things: several days 2. Feeling down, depressed, or hopeless: several days 3. Trouble falling or staying asleep, or sleeping too much: not at all 4. Feeling tired or having little energy: several days 5. Poor appetite or overeating: several days 6. Feeling bad about yourself - or that you are a failure or have let yourself or your family down: not at all 7. Trouble concentrating on things, such as reading the newspaper or watching television: not at all 8. Moving or speaking so slowly that other people could have noticed. Or the opposite - being so fidgety or restless that you have been moving around a lot more than usual: not at all 9. Thoughts that you would be better off or of hurting yourself in some way: not at all Total score: 4 Depression Screening Interpretation: Positive Depression Screening Follow-up: Existing condition, In treatment and Follow-up Visit Requested Depression Screening Done: Yes 04350 - PHQ-9 Billing: Yes Source: Developed by Drs. Betito Carter, Renata Daigle, Adam Bowman and colleagues, with an educational jame from [employer]. Thrive Questionnaire Date Thrive assessed: 08/16/25 I am a: Parent/Caregiver What is your living situation today?: I have a steady place to live Within the past 12 months, did the food you bought not last and you didn't have the money to get more?: Never true Within the past 12 months, did you worry whether your food would run out before you got money to buy more?: Never true Do you have trouble paying for medicines?: No Do you have trouble getting transportation to medical appointments?: No Do you have trouble paying your heating and electricity bill?: I choose not to answer this question Do you have trouble taking care of your child, family member or friend?: No Do you have trouble with day-to-day activities such as bathing, preparing meals, shopping, managing finances, etc.?: Yes Are you currently unemployed and looking for a job?: No Are you interested in more education?: No Please select the resources that you would like help with: None Currently or been in a relationship where the following occur: No concerns reported THRIVE Score: 0 AUDIT C Alcohol Use Questionnaire (AUDIT-C) 1. How often do you have a drink containing alcohol?: Never 3. How often do you have six or more drinks on one occasion?: Never Total Score: 0 Score Reviewed/Action Taken: No EPI-7 AMB Questionnaire EPI-7 Date EPI - 7 assessed: 02/22/25 Feeling nervous, anxious, or on edge: 0 = Not at all Not being able to stop or control worryin = Not at all Worrying too much about different things: 0 = Not at all Trouble relaxin = Several days Being so restless that it is hard to sit still: 0 = Not at all Becoming easily annoyed or irritable: 0 = Not at all Feeling afraid as if something awful might happen: 0 = Not at all Total EPI-7 score (0-4 normal; 5-9 mild; 10-14 moderate; 15-21 severe): 1 Source: Developed by Drs. Betito Carter, Renata Daigle, Adam Bowman and colleagues, with an educational jame from [employer]. EPI-7 Assessment Billing EPI-7 Assessment Tool: EPI-7 Assessment 80329 Review of Systems Const All systems reviewed & are unremarkable except as noted in HPI and below Card Denies chest pain at rest, Denies chest pain with activity, Denies edema, Denies irregular heart rhythm, Denies claudication, Denies dyspnea, Denies dyspnea on exertion, Denies orthopnea, Denies paroxysmal nocturnal dyspnea and Denies slow heart rate Resp Denies cough, Denies dyspnea and Denies dyspnea on exertion GI Denies abdominal pain, Denies change in bowel habits, Denies excessive flatus, Denies nausea and Denies vomiting Neuro Denies lack of coordination Physical exam (Primary Care) Vital Signs: Last Vital Signs Temp 97.3 F 08/16/25 08:32 Pulse 88 08/16/25 08:32 Resp 18 08/16/25 08:32 BP 98/60 08/16/25 08:32 Pulse Ox 98 08/16/25 08:32 Oxygen Delivery Method Room Air 08/16/25 08:32 BMI result Body Mass Index 27.2 Tobacco/Smoking Status: Tobacco use Status Tobacco use date assessed 08/16/25 08/16/25 08:41 Patient Tobacco Use Status Never used Tobacco 08/16/25 08:41 e-Cigarette/Vaping Use Never Used 08/16/25 08:41 PHQ-9: PHQ-9 Score PHQ-9: Total score 4 08/16/25 09:16 Depression Screening Interpretation: Positive Depression Screening Follow-up: Existing condition, In treatment and Follow-up Visit Requested Thrive Assessment: Date of Thrive Assessment Date Thrive assessed 08/16/25 08/16/25 08:41 Currently or been in a relationship where the following occur: No concerns reported [facility] Head: Yes normal to inspection, Yes normocephalic and Yes atraumatic Ears: external ears normal Eyes General: appearance normal, both eyes and all related structures Eyelids: Yes eyelids normal Conjunctivae: conjunctivae normal Neck Neck: Yes normal visual inspection and Yes supple Resp Effort & Inspection: normal respiratory effort Auscultation: clear to auscultation bilaterally Cardio Jugular venous distension: no JVD Rate: regular rate Rhythm: regular rhythm Heart sounds: S1 normal heart sound present and S2 normal heart sound present GI Inspection: Yes normal to inspection Palpation (GI): Soft to palpation and nontender Auscultation: normal bowel sounds Skin General skin exam: no rashes or lesions noted Neuro General: no focal motor deficits Extrem Other: Hand lesion in thenar area General: Yes full ROM Psych Appearance: grossly normal Office Procedures Flu Questionnaire Does the patient have a severe egg allergy?: No Does the patient have severe life threatening allergies?: No Does the patient have a fever or illness today?: No Has the patient ever had Guillain-[employer] Syndrome?: No Has the patient ever had any past reaction to a flu shot?: No Immunizations Fluarix [id number] (PF) 45 mcg (15 mcg x 3)/0.5 mL IM syringe Performing Provider: Lucia Rico MD [place] [facility] [place] [facility] Administered by: HENRIQUE Bass on 08/16/25 09:30 Dose Route Admin Location Dispensed Lot Number Expiration Date [facility] [facility] [employer] 0.5 mL IM Right Deltoid 0.5 mL [id number] 05/01/26 73499-906-57 [facility] Given Date VIS Provided VIS Publication Date 08/16/25 Single Vaccine 24 Eligibility Eligibility Date Funding Source Not [facility] Eligible 08/16/25 Private Coding Level of Care Code Est Pt Level 3 (21031) Est Pt Prev Care 40-64y(85603) Diagnoses Physical exam Z00.00 Hand lesion L98.9 Ocular myasthenia gravis G70.00 Mild recurrent major depression F33.0 Additional Codes PHQ-9 - 52471 - PHQ-9 Billing: Yes ([id number]) EPI-7 Assessment Billing - EPI-7 Assessment Tool: EPI-7 Assessment 91205 ([id number]) Time Spent (min) 33 Assessment & Plan Assessment & Plan (1) Physical exam: Code(s): Z00.00 - Encounter for general adult medical examination without abnormal findings Category: Medical (2) Hand lesion: Code(s): L98.9 - Disorder of the skin and subcutaneous tissue, unspecified Category: Medical (3) Ocular myasthenia gravis: Comment: This patient with diagnosis of ocular myasthenia gravis, seems to be stable at present, She is being followed by neurologist Dr. Kelley at [facility]. Code(s): G70.00 - Myasthenia gravis without (acute) exacerbation Category: Medical (4) Mild recurrent major depression: Code(s): F33.0 - Major depressive disorder, recurrent, mild Category: Medical Plan Plan Patient was informed and verbally consented to the use of an ambient scribe for clinic note documentation during this visit. 1. Physical exam The patient is advised to repeat the mammogram in six months to monitor any changes. The patient should receive a tetanus vaccination as she has not been previously vaccinated. 2. Mild Anemia The patient has mild anemia, and ongoing treatment has not shown significant improvement. 3. Low Vitamin A Levels The patient is advised to continue vitamin A supplementation, and alternative forms such as drops may be considered. 4. Depression, Mild The patient's mild depression is managed with sertraline, and she should continue this medication. 5. Hand lesion The calcification in the hand will be evaluated by a hand surgeon for further management. 6. Ocular myasthenia gravis Follow-up with neurology. Orders: Orders Influenza [id number] Immunization Today Z23 - Encounter for immunization Referrals Orthopedics Referral L98.9 - Disorder of the skin and subcutaneous tissue, unspecified
--- OUTSIDE RECORDS SUMMARY | 2025-08-16 08:51 | XMS_ITS | Clinical Summary ---
Author Organization [address] [place] [address] Address [address] [place] [address] Phone Care Team Providers Care Slab Grinder Name Role Phone Lucia Rico MD Primary Care Provider [phone] Allergies No known active allergies Medications tirzepatide, weight loss, (Zepbound) 12.5 mg/0.5 mL injection Inject 0.5 mL (12.5 mg total) under the skin every 7 (seven) days. 2 mL 2 5 10/19/20 25 Active tirzepatide, weight loss, (Zepbound) 12.5 mg/0.5 mL injection Inject 0.5 mL (12.5 mg total) under the skin every 7 (seven) days. 2 mL 2 5 07/20/20 25 Discontinu ed(Reorder ) Active Problems Problem Noted Date Diagnosed Date Overweight (BMI 25.0-29.9) 05/23/2025 Class 1 obesity without seri ous comorbidity with body mass index (BMI) of 30.0 to 30.9 in adult 02/21/2025 Encounters Date Type Department Care Team Description 07/19/2025 Telephone Bariatric Surgery [address] [id number] Robel Cohen MD 05/25/2025 Telephone Bariatric Surgery [address] [address] Robel Cohen MD 05/23/2025 12:30 PM EDT Telemedicine Bariatric Surgery [address] [address] Overweight (BMI 25.0-29.9) (Primary Dx) 05/23/2025 11:15 AM EDT Office Visit Bariatric Surgery [address] [address] Robel Cohen MD Over weight (Primary Dx) from Last 3 Months Social History Tobacco [...] 08/18/2025 12:30 PM EDT Telemedicine Bariatric Surgery [address] [address] [address] 11/23/2025 11:15 AM EST Office Visit Bariatric Surgery [address] [address] Robel Cohen MD [address] [place] [phone] Health Maintenance Due Date Last Done Comments Breast Cancer Screening 1984 DTaP,Tdap,and Td Vaccines (1 - Tdap) 02/12/2003 Hepatitis B Vaccines (1 of 3 - 19+ 3-dose series) 02/12/2003 Cervical Cancer Screening: P ap Smear 02/12/2005 HPV Vaccines (1 - 3-dose SCD M series) 02/12/2011 Cholesterol Screening (Lipid Panel) 08/27/2024 HIV Screening 08/27/2024 Hepatitis C Screening 08/27/2024 Social Influencers of Health Screening 08/27/2024 Depression Screening 11/02/2024 COVID-19 Vaccine (1 - 2023-2 5 season) 2025 Influenza Vaccine (#1) 2025 RSV Immunization Adult Patie nts (1 - 1-dose 75+ series) 02/12/2059 HIB Vaccines Aged Out No longer eligi [...] patient's age to complete this topic Insurance [facility] Care Teams Slab Grinder Relationship Specialty Start Date End Date Lucia Rico MD [address] [place] [address] PCP - General Internal Medicine 10/11/24
== END 2025-08-16 09:35 | disposition home or self-care (01) ==
LOC: HO.HMCH 08:28
PROVIDERS: PCP Internal Medicine; Visit Provider Internal Medicine
DX: Z00.00 Encounter for general adult medical examination without abnormal findings (principal); G70.00 Myasthenia gravis without (acute) exacerbation; L98.9 Disorder of the skin and subcutaneous tissue, unspecified; F33.0 Major depressive disorder, recurrent, mild; Z23 Encounter for immunization

== ENCOUNTER → 2025-08-16 08:28 | Outpatient (BNVA) | payer OTHER, SELFPAY | PROVIDERS: PCP Internal Medicine; Visit Provider Internal Medicine | DX: Z00.00 Encounter for general adult medical examination without abnormal findings (principal); D64.9 Anemia, unspecified; E50.9 Vitamin A deficiency, unspecified; L98.9 Disorder of the skin and subcutaneous tissue, unspecified; G47.00 Insomnia, unspecified; F33.0 Major depressive disorder, recurrent, mild; G70.00 Myasthenia gravis without (acute) exacerbation; Z23 Encounter for immunization; Z79.899 Other long term (current) drug therapy | CPT/HCPCS: 90471; 90656; 96127; 99396 ==

== ENCOUNTER 2025-09-14 11:28 | Outpatient (REF) | payer OTHER, SELFPAY ==
--- NOTE | ~2025-09-14 | US_ITS ---
EXAMINATION: MM DIAGNOSTIC DIGITAL BREAST TOMOSYNTHESIS, BILATERAL Limited right breast ultrasound. CLINICAL INFORMATION: 1 year follow-up for asymmetry in the retroareolar region superior right breast on MLO view without prior sonographic correlate. COMPARISON: Mammography: Comparison is made with relevant prior exams. TECHNIQUE: Digital breast mammography with tomosynthesis is performed in both the craniocaudal and mediolateral oblique views along with computer-aided detection (CAD). FINDINGS: The breasts are heterogeneously dense, which may obscure small masses. Left: There are no significant masses, abnormal calcifications, or other abnormalities. Right: Asymmetry in the superior right breast posterior depth on MLO view slightly increased from prior and retroareolar region posterior depth on CC view. No suspicious calcifications or other abnormal findings. Targeted color Doppler ultrasound scanning in the retroareolar region of right breast superiorly at 12:00 demonstrates a hypoechoic oval circumscribed solid mass versus complicated cyst at 9:00 4 cm from the nipple measuring 4 x 3 x 3 mm this is a questionable correlate for the focal asymmetry on mammography. Results are provided to the patient at time of visit by the technologist. US/US Breast RT Limited Mamm Only IMPRESSION: Left: Negative. Right: Increasing focal asymmetry in the right breast retroareolar region posterior depth with questionable correlate 9:00 4 cm from the nipple. Recommend ultrasound-guided core needle biopsy at this time for confirmation and for postprocedural clip placement to ensure clip matches the focal asymmetry on mammography. The findings and recommendations were discussed with the patient the procedure will be scheduled. ASSESSMENT: BI-RADS Category 4: Suspicious RECOMMENDATION: Biopsy recommended Electronically signed by: Holly Can DO 09/14/2025 12:56 PM EST
--- OUTSIDE RECORDS SUMMARY | 2025-09-14 14:43 | XMS_ITS | Clinical Summary ---
Author Organization [address] [place] [address] Address [address] [place] [address] Phone Care Team Providers Care Mill Attendant Name Role Phone Lucia Rico MD Primary Care Provider [phone] Allergies No known active allergies Medications tirzepatide, weight loss, (Zepbound) 12.5 mg/0.5 mL injection Inject 0.5 mL (12.5 mg total) under the skin every 7 (seven) days. 2 mL 2 07/21/2025 Active Active Problems Problem Noted Date Diagnosed Date Overweight (BMI 25.0-29.9) 05/23/2025 Class 1 obesity without seri ous comorbidity with body mass index (BMI) of 30.0 to 30.9 in adult 02/21/2025 Encounters Date Type Department Care Team Description 07/19/2025 Telephone Bariatric Surgery - [address] [phone] Robel Cohen MD from Last [...] Care Team (Late st Contact Info) Description 11/23/2025 11:15 AM EST Office Visit Bariatric Surgery - [address] [place] [address] Robel Cohen MD [address] [place] [phone] Health Maintenance Due Date Last Done Comments [...] Depression Screening 11/02/2024 COVID-19 Vaccine (1 - 2024-2 6 season) 2025 Influenza Vaccine (#1) 2025 RSV [...] patient's age to complete this topic Insurance [facility] Care Teams Mill Attendant Relationship Specialty Start Date End Date Lucia Rico MD [address] [place] [address] PCP - General Internal Medicine 10/11/24
== END 2025-09-14 11:29 | disposition home or self-care (01) ==
LOC: HO.MAMMO 11:28
PROVIDERS: PCP Internal Medicine; Visit Provider Internal Medicine
DX: N64.89 Other specified disorders of breast (principal)
CPT/HCPCS: 76642; 77062; 77066

== ENCOUNTER → 2025-09-14 11:30 | Outpatient (BNV) | payer OTHER, SELFPAY | PROVIDERS: PCP Internal Medicine; Visit Provider Internal Medicine | DX: R92.8 Other abnormal and inconclusive findings on diagnostic imaging of breast (principal) | CPT/HCPCS: 76642; 77062; 77066 ==